=== PATIENT | male | born 1940 | race Caucasian/White ===

== ENCOUNTER 2017-08-22 22:52 | Inpatient (IN) ==
--- NOTE | 2017-08-23 02:35 | Internal Med History&Physical ---
<Keri Henriquez - Last Filed: 08/23/17 05:28> Date of Encounter: 08/23/17 Time of Encounter: 02:25 Assessment and Plan (1) Bilateral lower leg cellulitis Current visit: No Status: Acute Cellulitis from mid calf down. PAD. Cyanosis, dry, erythema, multiple non healing ulcers bilateral, 2+ pitting edema bilaterally. Decreased pulses in lower extremities. lactic acid 2.5 but does not appear septic. afebrile, BP stable. WBC WNL Most likely from the patient not treating or caring for his leg wounds, PAD, and diabetes. He has never sought treatment. Vancomycin IV cirpofloxacin blood and wound cultures collected at [facility] wound care PT/OT ordered social work consulted (2) PAD (peripheral artery disease) Current visit: Yes Status: Acute Patient's legs appear to be PAD. Cyanosis, dry, erythema, multiple non healing ulcers bilateral, 2+ pitting edema bilaterally. Decreased pulses in lower extremities. No crepitus. Nurse reported she could not find pulse with doppler. Heparin drip started JET consult vascular in morning (3) Atrial fibrillation with RVR Current visit: No Status: Acute Patient was found to be in new onset A.fib with RVR at [facility]. EKG showed atrial fib with RVR, rate 119, no acute ST elevation. Etiology unclear. May be due to the patient's multiple co-morbidities. The patient was started on a cardizem drip. tele monitoring echo ordered (4) GERRY (acute kidney injury) Current visit: Yes Status: Acute Patient has GERRY at admission. Creatinine 1.71 May be pre-renal due to dehydration. Patient reports that he does not eat or drink very much. avoid nephrotoxic agents strict I/O monitor renal function holding home lisinopril (5) CHF (congestive heart failure) Current visit: No Status: Acute Patient reports history of 2 valve replacement in 2010 he believes. He denies diagnosis of CHF. He admits orthopnea and increase in lower extremity edema. CXR showed cardiomegaly with hydrostatic edema, small pleural effusion, acute CHF BNP 2563 Echo ordered holding lasix due to GERRY Qualifiers: Congestive heart failure type: unspecified congestive heart failure type Congestive heart failure chronicity: unspecified congestive heart failure chronicity Qualified Code(s): I50.9 - Heart failure, unspecified (6) Hypertension Current visit: Yes Status: Acute history of hypertension taking lisinopril hold lisinopril due to GERRY BP stable Qualifiers: Hypertension type: essential hypertension Qualified Code(s): I10 - Essential (primary) hypertension (7) Diabetes Current visit: Yes Status: Acute History of diabetes taking metformin and glipizide glucose 203 accu checks lispro AC Qualifiers: Diabetes mellitus type: type 2 Qualified Code(s): E11.9 - Type 2 diabetes mellitus without complications (8) DVT prophylaxis Current visit: Yes Status: Acute on heparin drip Internal Medicine - H&P: HPI Chief complaint: bilateral lower extremity cellulitis Admitted From: Hospital to Hospital Transfer Plans for Post Hospital Care: Home History of present illness: Mr. Smith is a 77 year old male with a past medical history of hypertension and diabetes who was a transfer from [facility] ED. He presented to [facility] ED by EMS because of non healing ulcers on his legs bilaterally. Per ED report his PA called EMS after visiting patient's home and examining his legs. The following are lab and imaging results at [facility]: EKG showed atrial fib with RVR, rate 119, no acute ST elevation. The patient was started on a cardizem drip. Patient given multiple IVF boluses and dose of zosyn. X-ray feet and ankle showed no acute osseous abnormality or osteomyelitis. CXR showed cardiomegaly with hydrostatic edema, small pleural effusion, acute CHF. Afebrile , HR 112, BP 124/90, WBC 10.4, lactic acid 2.5. BNP 2563, creatinine 1.71. Blood and wound cultures were also collected. Upon my examination of the patient he stated that he went to the ED because the pain in his bilateral legs increased 2 weeks ago. He does not take care of the leg ulcers. He describes the pain as an ache and does not take medication for the pain. He has been using a walking recently because of the pain. He reported that he has never sought treatment for the care of his feet. His family doctor is Dr. Tico Guido in [facility] but he does not know about the patient's legs. He denied fever, chills, chest pain, shortness of breathe, palpitations, abdominal pain, nausea, vomiting, dysuria. 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 He reported that he fell a month ago and his shoulder has hurt since. He denies history of smoking, drug, alcohol. He reports that he has lost 30lbs in 2 months because he skips meals and will go days without eating because food does not taste very good to him. At [facility] ED shoulder X-ray was normal. The patient vitals are stable, afebrile, no acute distress. He has equal sensation in his legs bilaterally, he is able to move both lower extremities, and has weak but present pulses b/l. Past Med Surg Social Fam HX - Past Medical History Medical history: diabetes, hypertension Psychiatric history: no psych history - Past Surgical History Surgical History: heart valve replacement (2 valve replacement ) - Social History Smoking Status: Never smoker Smokeless Tobacco Status: No Alcohol use: none Drug use: none Occupational status: employed Current living situation: Home Activity Level: Uses cane/walker - Family History Mother Hx Family Cancer: Yes Father Hx Family Cancer: Yes Internal Medicine - H&P: Meds Aspirin Enteric Coated [Aspirin EC] 81 mg PO DAILY 08/22/17 [History] GlipiZIDE [Glipizide Xl] 5 mg PO DAILY 08/22/17 [History] Lisinopril [Zestril] 30 mg PO DAILY 08/22/17 [History] Metoprolol Succinate 50 mg PO DAILY 08/22/17 [History] metFORMIN [Glucophage] 1,000 mg PO BIDWM 08/22/17 [History] 3 Allergy/AdvReac Type Severity Reaction Status Date / Time No Known Allergies Allergy Verified 08/22/17 18:35 All Systems PM: A 10-system review of systems was performed and is negative for pertinent findings except as documented above in the HPI. - Constitutional Constitutional: falls, no chills, no fever(s) - EENT Eyes: no change in vision - Cardiovascular Cardiovascular ROS IM: edema, orthopnea, no chest pain, no diaphoresis, no paroxysmal nocturnal dyspnea, no syncope - Respiratory Respiratory: no cough, no hemoptysis, no wheezing - Gastrointestinal Gastrointestinal: no abdominal pain, no hematochezia, no melena, no nausea, no vomiting - Genitourinary Genitourinary ROS male: hematuria, nocturia, urinary frequency, no dysuria - Musculoskeletal Musculoskeletal ROS IM: no joint swelling - Integumentary Integumentary IM: erythema, non-healing lesions (bilateral lower extremities), skin ulcer - Neurological Neurological ROS: no dizziness, no headache(s) - Psychiatric Psychiatric: no confusion - Hematologic/Lymphatic Hematologic/Lymphatic: no easy bleeding - Constitutional General appearance: Present: A&O X 3, pleasant, no acute distress - Head Head exam: Present: atraumatic, normocephalic - Eye Eye exam: Present: conjunctival injection. Absent: scleral icterus - ENT ENT exam: Present: mucous membranes dry - Neck Neck exam general surgery: Present: supple. Absent: lymphadenopathy, tenderness - Respiratory Respiratory exam: Present: rales (bases bilateral). Absent: respiratory distress, rhonchi, stridor, wheezes - Cardiovascular Cardiovascular exam: Present: irregular rhythm. Absent: clicks - GI/Abdominal GI/Abdominal exam: Present: normal bowel sounds, soft. Absent: firm, guarding, tenderness - Extremities Exam Extremities exam: Present: calf tenderness - Expanded Lower Extremities Exam Lower Leg exam: Present: erythema, swelling, tenderness. Absent: crepitus Neuro vascular tendon exam: Present: extremity cold to touch. Absent: pulse deficit (weak pulse), sensory deficit - Back Exam Back exam: Present: normal inspection. Absent: rash noted - Skin Skin exam: Present: cyanosis, dry, erythema. Absent: intact (non healing ulcers ) <Sebastián Mccoy - Last Filed: 08/23/17 05:53> Date of Encounter: 08/23/17 Internal Medicine - H&P: HPI History of present illness: Mr. Smith is a 77 year old male All Systems PM: A 10-system review of systems was performed and is negative for pertinent findings except as documented above in the HPI. - Constitutional Vitals: Temp Pulse Resp BP Pulse Ox 98.3 F 119 14 122/96 96 08/23/17 02:41 08/23/17 04:16 08/23/17 04:16 08/23/17 04:16 08/23/17 04:16 - Attending Attestation I examined this patient and my medical decision-making was reviewed with the Resident Physician. I agree with the documented findings, disposition and treatment plan as described except to the extent set forth below. Mr Smith is a 77 yo gentlemen who lives at home with brother. Hx of DMII. Coming in with worsening LE erythema and ulceration concerning for progressive diabetic foot ulcer with overlying infection. Symptoms did not get better with time but had gotten worse instead. ED physician at [facility] reported that on arrival patient leg wounds were covered in feces and dog hair. He was found to be in AFib rvr. General - AAO x 3 Psych - Appropriate affect/speech. No agitation Eyes - AXEL. Eye lids intact. No scleral icterus Neuro - No gross peripheral or central neuro deficits with intact CN 2-12 exam Heart - Irregularly irregular. S1 and S2 present. No added HS/murmurs appreciated. No elevated JVD appreciated. Lung - Adequate air entry b/l, No wheezes, bibasal crackles appreciated GI - Soft, non-tender. No hepatosplenomegaly/ascites. BS+ Skin - Ulceration with gangrenous change of b/l LE. Early surrounding cellulitis XR/XR foot 3V RT IMPRESSION: No acute osseous abnormality of the right ankle. No acute osseous abnormality of the right foot. No plain film evidence of osteomyelitis. Moderate soft tissue swelling along the dorsum of the foot. XR/XR ankle complete min 3V RT IMPRESSION: No acute osseous abnormality of the right ankle. No acute osseous abnormality of the right foot. No plain film evidence of osteomyelitis. Moderate soft tissue swelling along the dorsum of the foot. XR/XR chest 1V IMPRESSION: Cardiomegaly with hydrostatic edema and small layering pleural effusion in keeping with acute congestive heart failure. IMPRESSION: 1. No acute osseous abnormality the right shoulder. 2. Mild degenerative changes of the right acromioclavicular joint. Cellulitis Dry gangrene Diabetic ulcers Lactate elevation - IV vanc, cipro for broad coverage - wound care PAD - JET - consult vascular to assist in eval and optimization if necessary AFib rvr - EKG rate 147 at [facility] ED Acute congestion CHF - could be related to AFib rvr - rate control with dilt gtt - TTE with HR better - hold diuretics due to above issues - to visit anticoagulation but compliance may be an issue Renal insufficiency - unknown baseline Troponemia - could be 2/2 demand from RVR Social work consult
[2017-08-23] MEDS ORDERED: Naloxone 0.4 MG/ML INJ IVP PRN (03:30)
[2017-08-23] MEDS ORDERED: Vancomycin 1,250 MG in D5% in Water 250 ML IVPB SCH (04:00)
[2017-08-23] MEDS ORDERED: Metoprolol XL (24 HR) Succ 50 MG TAB.ER.24H PO SCH ×2 (04:17→09:00)
[2017-08-23] MEDS: Vancomycin 1,250 MG in D5% in Water 250 ML IVPB SCH (05:06)
[2017-08-23] MEDS: dilTIAZem HCl 100 MG in D5% in Water 50 ML IVC SCH ×2 (05:08→22:12)
[2017-08-23] MEDS: Heparin 25,000 UNIT/500 ML D5W 25,000 UNIT/500 ML BAG IVC SCH ×2 (05:14→23:32)
[2017-08-23] MEDS ORDERED: *HR* Heparin 5,000 UNIT/ML VIAL SQ SCH (06:00)
[2017-08-23] MEDS ORDERED: Insulin LISPRO 300 UNITS/3 ML VIAL SQ SCH ×2 (07:30→08:00)
[2017-08-23 08:21] LABS: Hematocrit 41.1 % (37.5-50.1)
[2017-08-23 08:23] LABS: Hemoglobin 12.5 g/dL (12.9-16.9); Immature Platelets 10.5 % (1.1-6.1); Mean Corpuscular HGB Conc 30.4 g/dL (31.6-35.5); Mean Corpuscular Hemoglobin 22.9 pg (28.0-33.3); Mean Corpuscular Volume 75.1 fL (83.0-100.0); Platelet Count 111 K/mcL (140-400); Red Blood Count 5.47 M/mcL (4.19-5.50); Red Cell Distribution Width 23.5 % (11.5-14.5)
[2017-08-23 08:27] LABS: INR 1.7; Prothrombin Time 18.9 Seconds (9.4-12.1)
[2017-08-23 08:34] LABS: Calcium 8.3 mg/dL (8.6-10.8); Magnesium 1.8 mg/dL (1.6-2.6); Phosphorous 2.8 mg/dL (2.3-4.7)
[2017-08-23] MEDS: Aspirin Enteric Coated 81 MG Tablet PO SCH (08:38)
[2017-08-23] MEDS ORDERED: *HR* Dextrose 50 % in Water (Syg) 50 ML SYRINGE IVP PRN (09:28)
[2017-08-23] MEDS ORDERED: D5% in Water 1,000 ML IVC PRN (09:28)
[2017-08-23] MEDS ORDERED: Dextrose Gel 15 GM/37.5 ML TUBE PO PRN ×2 (09:28)
[2017-08-23] MEDS ORDERED: *HR* Heparin 5,000 UNIT/ML VIAL IVP PRN (09:30)
[2017-08-23 09:32] LABS: Lymphocytes # 0.3 K/mcL (0.6-4.6); Neutrophils # 12.2 K/mcL (1.6-8.9)
[2017-08-23 09:33] LABS: Platelet Estimate Slight Decrease (Normal)
[2017-08-23] MEDS ORDERED: Piperacillin/Tazobactam 3.375 GM/200 ML BAG IVPB SCH (10:00)
[2017-08-23 10:41] LABS: Acanthocytes 1+ (Not Present); Burr Cells 2+ (Not Present)
[2017-08-23 10:42] LABS: Schistocytes 1+ (Not Present)
[2017-08-23 10:43] LABS: Target Cells 1+ (Not Present)
[2017-08-23 10:44] LABS: Anisocytosis 2+ (Not Present); Ovalocytes 1+ (Not Present)
--- NOTE | 2017-08-23 10:47 | Cardiology Consult Note ---
Date of Encounter: 08/23/17 Time of Encounter: 10:47 Assessment and Plan (1) Atrial fibrillation with RVR Current Visit: No Status: Acute Presumably new onset, in setting of CHF and bilateral lower extremity cellulitis. A-Fib RVR on presentation. HR currently 90s-low 100s at bedside on low dose cardizem gtt and Toprol XL 50mg daily. Will increase PO BB. Uptitrate Cardizem gtt as necessary for HR control, < 100bpm. K 4.0, Mag 1.8. Echo pending to evaluate structure and function. Hx of CABG and valve replacement. Currently on heparin gtt for anticoagulation. [id number] (Age, HTN, CAD, DM, CHF). Will need to discuss terminologist anticoagulation prior to discharge due to high CVA risk. Continue heparin gtt for now. (2) CAD (coronary artery disease) Current Visit: Yes Status: Acute Per pt, hx of 2 vessel CABG and valve replacement (uncertain which valve) in 2010 at a [facility], possibly [facility]. ASA, Statin, BB. Pt denies chest pain. Echo pending. Qualifiers: Coronary Disease-Associated Artery/Lesion type: cantwell artery [place] vs. transplanted heart: cantwell heart Associated angina: without angina Qualified Code(s): I25.10 - Atherosclerotic heart disease of cantwell coronary artery without angina pectoris (3) Presence of other heart-valve replacement Current Visit: Yes Status: Chronic 2V CABG and valve replacement in 2010. Pt unsure which valve was replaced. Echo pending to evaluate. (4) CHF (congestive heart failure) Current Visit: Yes Status: Acute Acute CHF exacerbation--systolic vs. diastolic. Echo pending to determine. Pt denies any hx of CHF. Pt denies increased dyspnea. Chief complaint is leg swelling, redness, pain and ulcers. BNP 2563, CXR findings consistent with CHF. Recommend strict I/Os, Na and fluid restriction, daily weights. Await echo results for further recommendations. Qualifiers: Congestive heart failure type: unspecified congestive heart failure type Congestive heart failure chronicity: unspecified congestive heart failure chronicity Qualified Code(s): I50.9 - Heart failure, unspecified (5) PAD (peripheral artery disease) Current Visit: Yes Status: Acute Lower extremities with cellulitis, vascular wounds, necrosis. Per wound care, pulses not palpable. Agree with vascular surgery consultation. Discussion w patient/family: The assessment and plan as outlined above was discussed with the patient and/or family members who expressed understanding and agreement. All questions were answered. Thank you for involving us in the care of your patient. Please call with any questions. I will discuss all the above with Dr. Donaldson and make changes as necessary. History of Present Illness Consult date: 08/23/17 Requesting physician: Sebastián Mccoy Consult reason: A-Fib RVR Chief complaint: leg pain, swelling, redness History of present illness: Mr. Smith is a 77 year old male with a past medical history of HTN, DM, PAD, CAD s/p CABG x 2 and valve replacement who was a transfer from [facility] ED. He presented to [facility] ED by EMS because of non healing ulcers on his legs bilaterally. Per ED report his PA called EMS after visiting patient's home and examining his legs. EKG showed atrial fib with RVR, rate 119, was started on a cardizem drip. CXR showed cardiomegaly with hydrostatic edema, small pleural effusion, acute CHF. BNP 2563. Pt reports pain in his bilateral legs increased 2 weeks ago. He does not take care of the leg ulcers. He reports that he has never sought treatment for the care of his feet. He denies dyspnea, chest pain or palpitations. He denies history of smoking, drug, or alcohol use. He reports that he has lost 30lbs in 2 months due to loss of appetite. Pt is being treated for bilateral lower extremity cellulitis. Cardiology consulted for A-Fib RVR and CHF. No prior testing at [facility]. Pt unsure of which valve he had replaced, thinks it was done at [facility] 6 years ago. Past Med Surg Social Fam HX - Past Medical History Medical history: coronary artery disease, diabetes, hypertension, valvular heart disease Psychiatric history: no psych history - Past Surgical History Surgical History: coronary bypass (CABG), heart valve replacement (2 valve replacement ) - Social History Smoking Status: Never smoker Smokeless Tobacco Status: No Alcohol use: none Drug use: none - Family History Mother Hx Family Cancer: Yes Father Hx Family Cancer: Yes Medications and Allergies Aspirin Enteric Coated [Aspirin EC] 81 mg PO DAILY 08/22/17 [History] GlipiZIDE [Glipizide Xl] 5 mg PO DAILY 08/22/17 [History] Lisinopril [Zestril] 30 mg PO DAILY 08/22/17 [History] Metoprolol Succinate 50 mg PO DAILY 08/22/17 [History] metFORMIN [Glucophage] 1,000 mg PO BIDWM 08/22/17 [History] 3 Allergy/AdvReac Type Severity Reaction Status Date / Time No Known Allergies Allergy Verified 08/22/17 18:35 All Systems Review: A 10-system review of systems was performed and is negative for pertinent findings except as documented above in the HPI. - Constitutional Constitutional: anorexia, weight loss - Cardiovascular Cardiovascular: as per HPI, leg edema Physical Examination Vital Signs, Last 4 Hours Temp Pulse Resp BP Pulse Ox 08/23/17 07:23 97.4 F L 96 18 119/84 100 Vital Signs Temp Pulse Resp BP Pulse Ox 08/23/17 07:23 97.4 F L 96 18 119/84 100 08/23/17 04:16 119 14 122/96 96 08/23/17 02:41 98.3 F 113 16 108/93 96 Intake and Output 08/22/17 08/23/17 08/23/17 23:59 07:59 15:59 Intake Total 0 / 0 Output Total 25 / 25 Balance -25 / -25 Intake: Oral 0 / 0 Output: Urine 25 / 25 Other: Weight 89.3 kg Blood Glucose* 148 Patient Weight 08/23/17 23:59 Weight 89.3 kg General: Conversant, No Apparent Distress HEENT: Atraumatic, Normocephaly, Mucus Membranes Moist Neck: Normal carotid pulses Cardiac: Other (irregularly irregular) Lungs: Other (diminished) Neuro: Alert and responsive, No focal deficits noted Abdomen: Soft, Non-Tender Skin: No rashes noted on visualized skin Musculoskeletal: No Chest Wall Tenderness Extremities: Other (bilateral lower extremities with erythema, edema, and wounds ) Results 08/23/17 08:12 08/23/17 08:12 Lab Results 08/23/17 08/23/17 08/23/17 02:33 05:02 08:12 WBC 12.4 H RBC 5.47 Hgb 12.5 L Hct 41.1 MCV 75.1 L MCH 22.9 L MCHC 30.4 L RDW 23.5 H Plt Count 111 L MPV TNP Immature Plt Fraction 10.5 H PT INR Sodium Potassium Chloride Carbon Dioxide BUN Creatinine Est GFR ( Amer) Est GFR (Non-Af Amer) BUN/Creatinine Ratio Glucose POC Glucose 158 H 148 H Calculated Osmolality Calcium Phosphorus Magnesium 08/23/17 08/23/17 08:12 08:12 WBC RBC Hgb Hct MCV MCH MCHC RDW Plt Count MPV Immature Plt Fraction PT 18.9 H INR 1.7 Sodium 138 Potassium 4.0 Chloride 106 Carbon Dioxide 22 BUN 41 H Creatinine 1.54 H Est GFR ( Amer) 53 L Est GFR (Non-Af Amer) 44 L BUN/Creatinine Ratio 27 H Glucose 163 H POC Glucose Calculated Osmolality 300 Calcium 8.3 L Phosphorus 2.8 Magnesium 1.8 Short CBC 08/23/17 Range/Units 08:12 WBC 12.4 H (4.3-11.1) K/mcL Hgb 12.5 L (12.9-16.9) g/dL Hct 41.1 (37.5-50.1) % Plt Count 111 L (140-400) K/mcL Neutrophils # 12.2 H (1.6-8.9) K/mcL BMP 08/23/17 Range/Units 08:12 Sodium 138 (136-145) mEq/L Potassium 4.0 (3.5-4.5) mEq/L Chloride 106 (98-109) mEq/L Carbon Dioxide 22 (19-29) mEq/L BUN 41 H (8-26) mg/dL Creatinine 1.54 H (0.72-1.25) mg/dL Glucose 163 H (70-99) mg/dL Calcium 8.3 L (8.6-10.8) mg/dL Active Medications Acetaminophen (Tylenol) 650 mg PO Q6HR PRN PRN Reason: Mild Pain (1-3) Stop: 02/22/18 03:31 Aspirin (Aspirin Ec) 81 mg PO DAILY KAYLEE Stop: 02/22/18 09:01 Last Admin: 08/23/17 08:38 Dose: 81 mg Dextrose/Water (Dextrose 50% (Syg)) 25 ml IVP AD PRN PRN Reason: Hypoglycemia Stop: 02/22/18 09:29 Glucagon (Glucagen) 1 mg IM ONCE PRN PRN Reason: Hypoglycemia Stop: 02/22/18 09:29 Glucose (Gluctose) 15 gm PO ONCE PRN PRN Reason: Hypoglycemia Stop: 02/22/18 09:29 Glucose (Gluctose) 30 gm PO ONCE PRN PRN Reason: Hypoglycemia Stop: 02/22/18 09:29 Heparin Sodium (Porcine) (Heparin) 6,300 unit 70 unit/kg (6300 unit) IVP Q6HR PRN PRN Reason: SEE COMMENTS Stop: 02/22/18 09:31 Heparin Sodium (Porcine) (Heparin) 3,100 unit 35 unit/kg (3100 unit) IVP Q6H PRN PRN Reason: SEE COMMENTS Stop: 02/22/18 09:31 Heparin Sodium/Dextrose (Heparin 25,000 Unit/500 Ml D5w) 25,000 unit in 500 mls @ 25.004 mls/hr IVC .Q20H KAYLEE; 14 UNIT/KG/HR PRN Reason: Protocol Stop: 02/22/18 04:16 Last Admin: 08/23/17 05:14 Dose: 14 unit/kg/hr, 25.004 mls/hr Vancomycin HCl 1,250 mg/ (Dextrose) 250 mls @ 166.667 mls/hr IVPB Q24H KAYLEE Stop: 02/22/18 05:01 Last Admin: 08/23/17 05:06 Dose: 166.667 mls/hr Diltiazem HCl 100 mg/ Dextrose 50 mls @ 2.5 mls/hr IVC .Q20H KAYLEE; 5 MG/HR PRN Reason: Protocol Stop: 02/22/18 04:46 Last Admin: 08/23/17 05:08 Dose: 5 mg/hr, 2.5 mls/hr Dextrose (Dextrose 5%) 1,000 mls @ 100 mls/hr IVC .Q10H PRN PRN Reason: HYPOGLYCEMIA Stop: 02/22/18 09:29 Piperacillin Sod/Tazobactam Sod (Zosyn Premix 3.375 Gm/200 Ml) 3.375 gm in 200 mls @ 50 mls/hr IVPB Q8H [facility] Stop: 02/22/18 10:01 Insulin Human Lispro (Humalog) 0 units SQ Q6HR KAYLEE PRN Reason: Protocol Stop: 02/22/18 12:01 Metoprolol Succinate (Toprol Xl) 50 mg PO DAILY KAYLEE Stop: 02/22/18 04:18 Last Admin: 08/23/17 05:07 Dose: 50 mg Naloxone HCl (Narcan) 0.4 mg IVP Q2MIN PRN PRN Reason: Opioid Reversal Stop: 02/22/18 03:31 - Imaging and Cardiology Chest Xray: report reviewed Echo: pending - EKG Interpretation EKG results cardiology: personally reviewed (A-Fib RVR), other (12 hr tele AVG HR 112, A-Fib) Consult Discharge Plan - Plan Referrals: NONE,PCP [Primary Care Provider] -
[2017-08-23] MEDS ORDERED: Metoprolol XL (24 HR) Succ 25 MG TAB.ER.24H PO ONE (11:05)
[2017-08-23] MEDS: Insulin LISPRO 300 UNITS/3 ML VIAL SQ SCH ×3 (11:45→23:35)
--- NOTE | 2017-08-23 12:16 | Event Note ---
Date of Encounter: 08/23/17 Time of Encounter: 11:59 Patient is a 77y/o male with PMH of DM admitted for management of PVD, Afib with RVR, GERRY on CKD, LE cellulitis. Patient seen and examined at bedside. Noted to have ulceration with gangrenous changes of bilateral LE JET reported total occlusion with no pulses found bilateral and no waveforms bilateral Vascular surgery consultation requested continue heparin gtt IV abx Afib-rate controlled, currently on cardizem gtt, continue to titrate off the drip and increase PO BB cardiology on board and consultation appreciated' will obtain nephrology consultation given GERRY on CKD hx of DM, continue home insulin in addition to sliding scale insulin algorithm. Monitor FS and BG vitals and labs reviewed
--- NOTE | 2017-08-23 12:23 | Vascular/Endovasc Consult Note ---
Date of Encounter: 08/23/17 Time of Encounter: 10:00 Assessment and Plan (1) Diabetic ankle ulcer Current Visit: Yes Status: Acute Severe and full-thickness ulcerations with necrotic fat and full-thickness eschars. These wounds appear to be chronic. (2) Atrial fibrillation with RVR Current Visit: Yes Status: Acute Patient diagnosed with atrial fibrillation with RVR on admission. He is undergoing medical treatment. The patient needs cardiology consultation and echocardiogram for further evaluation. Patient is not a candidate for anesthesia for surgical intervention or for [facility] anesthesia for catheter based angiography due to cardiopulmonary and renal concerns at this time. (3) CHF (congestive heart failure) Current Visit: Yes Status: Acute The patient has multiple ongoing medical problems. He is not a candidate for vascular surgery intervention due to multiple issues particularly his cardiopulmonary and renal status. Qualifiers: Congestive heart failure type: unspecified congestive heart failure type Congestive heart failure chronicity: unspecified congestive heart failure chronicity Qualified Code(s): I50.9 - Heart failure, unspecified (4) PAD (peripheral artery disease) Current Visit: Yes Status: Acute Patient has severe lower extremity vascular disease. I do not palpate popliteal or ankle pulses. There is no ankle-brachial index or waveform at the ankle. The patient's initial prognosis is extremely grim. Unless his medical problems can be stabilized and improved to the point that he could undergo either anesthesia or at least M before meals anesthesia and improve renal function he may require bilateral [id number] amputations. My recommendation would be as correction and improvement of his medical concerns as best possible. Then to have a CT angiogram with an aortogram with bilateral lower extremity runoff. Pending the results of that exam I would then make further recommendations. (5) GERRY (acute kidney injury) Current Visit: Yes Status: Acute Patient has acute kidney injury from a host of sources. IV contrast or intra- arterial contrast cannot be administered in his present state. Would recommend renal consultation to stabilize and improve this and also to follow the patient after contrast exposure if he can be improved to allow that study to be performed. - History of Present Illness Consult date: 08/23/17 Consult reason: Bilateral lower extremity ischemia with ulcerations Chief complaint: Leg ulcers History of present illness: Mr. Smith is a 77 year old male Admitted on transfer from [facility] last night. The patient is a very imprecise historian. As best I can determine he states that the symptoms and ulcerations began 2-3 weeks ago and they are worsening over time. The patient admits to ulcerations of both lower extremities involving the calf and ankle and feet area. He states he had needed to use a walker to walk over the past few days. He also complains of pain in the calves with walking recently. The patient lives with his brother and has had by his own admission very little medical attention or medical follow-up. He denies any previous knowledge of lower extremity vascular disease. He denies any previous lower extremity vascular interventions. He denies being told that he had lower extremity vascular disease by other physicians in the past. Noninvasive testing was performed earlier today with ABIs that demonstrated no Doppler signals are measurable pressure at the ankles bilaterally. The patient was found to be in atrial fibrillation with rapid ventricular response. He was started on intravenous heparin and intravenous diltiazem drip to control his rate. In addition because of his lower extremity wounds he was placed on intravenous antibiotics. Of note the patient has multiple risk factors including diabetes, hypertension, and hypercholesterolemia. The patient denies tobacco abuse. The patient has significant cardiac history though he is unclear of the details. 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 Some more the last 4-6 years she had open heart bypass grafting with a two-vessel bypass and a porcine valve replacement. The patient does not know whether this is an aortic or mitral valve replacement. He believes that this was performed at [facility]. He does not remember the name of the cardiac surgeon. Past Med Surg Social Fam HX - Past Medical History Medical history: coronary artery disease, diabetes, hypertension, valvular heart disease Psychiatric history: no psych history - Past Surgical History Surgical History: coronary bypass (CABG), heart valve replacement (2 valve replacement ) - Social History Smoking Status: Never smoker Smokeless Tobacco Status: No Alcohol use: none Drug use: none - Family History Mother Hx Family Cancer: Yes Father Hx Family Cancer: Yes Medications and Allergies Aspirin Enteric Coated [Aspirin EC] 81 mg PO DAILY 08/22/17 [History] GlipiZIDE [Glipizide Xl] 5 mg PO DAILY 08/22/17 [History] Lisinopril [Zestril] 30 mg PO DAILY 08/22/17 [History] Metoprolol Succinate 50 mg PO DAILY 08/22/17 [History] metFORMIN [Glucophage] 1,000 mg PO BIDWM 08/22/17 [History] 3 Allergy/AdvReac Type Severity Reaction Status Date / Time No Known Allergies Allergy Verified 08/22/17 18:35 All Systems Review: A 10-system review of systems was performed and is negative for pertinent findings except as documented above in the HPI. Exam Vital Signs, Last 4 Hours Temp Pulse Resp BP Pulse Ox 08/23/17 11:36 98.5 F 88 16 97/72 100 General: Present: Conversant, Other (Patient is an ill-appearing elderly white male. He has muscle wasting of his extremities and face and neck. He appears somewhat listless and lethargic.) HEENT: Present: Trachea midline Neck: Absent: JVD, Lymphadenopathy, Left Carotid bruit, Right Carotid bruit, Midline deformity, Tracheal deviation Cardiac: Present: No Murmur, Irregular Rhythm Lungs: Present: Decreased breath sounds Neuro: Present: Alert and responsive, Cranial nerves grossly intact, Other ( Patient is examined in bed. He has an overall lethargy and has minimal spontaneous speech or movement.) Abdomen: Present: Soft, Non-tender. Absent: Masses Vascular: Present: Pulse, absent, Edema (Patient has bilateral calf and pedal edema. Greater on the left side than on the right.), Color/Temperature (Patient' s feet are cool to cold. The left foot is colder than the right.) Skin: Present: Wound/ulcer(s) (The patient has multiple ulcers of the lower extremities in the pretibial and ankle and foot area. In particular the left toes have necrotic full-thickness lesions on the plantar surface. There was a very dry full-thickness open ulceration on the pretibial region greater on the left side than on the right. These wounds appear to be chronic. There is mild tenderness to manipulation. The calves have a doughy sensation on manipulation greater on the left side than on the right. There does not appear to be a compartment syndrome. There does not appear to be necrotizing fasciitis or deep- seated infection present.) Consult Discharge Plan - Plan Referrals: NONE,PCP [Primary Care Provider] -
--- NOTE | 2017-08-23 14:06 | Nephrology Consult Note ---
Date of Encounter: 08/23/17 Time of Encounter: 14:00 Assessment and Plan (1) GERRY (acute kidney injury) Current Visit: Yes Status: Acute Elevated SCr at 1.54 an improvement from 1.71, GFR 39 on admission. Baseline unclear Will obtain US of kidney Will obtain previous labs from pcp if there is any available Needs UA, urine for protein Will need careful use of vanco by levels only given nephrotoxicity (2) PAD (peripheral artery disease) Current Visit: Yes Status: Acute If CTA planned, will need mucomyst for prophylasix and gentle volume replacement History of Present Illness - Reason for Consult Consult date: 08/23/17 Acute Kidney Injury Requesting physician: Natacha Multani - History of Present Illness 77 y o male with PMH ofDM, HTN and CAD s/p 2 vessel CABG and valvular surgery admitted for cellulitis with severe PAD with vascular consulted. He was also noted to have new onset Afib with cardilogy consulted. renal consulted for elevated SCr at 1.71, GFR 39 on presenttation improving to 1.54, GFR 44. Pt denies any prior history of renal disease although he has had no labs this year. He also denies any family history. He denies any urinary iss ues except weak stream. No prostate issues as well. Past Med Surg Social Fam HX - Past Medical History Medical history: coronary artery disease, diabetes, hypertension, valvular heart disease Psychiatric history: no psych history - Past Surgical History Surgical History: coronary bypass (CABG), heart valve replacement (2 valve replacement ) - Social History Smoking Status: Never smoker Smokeless Tobacco Status: No Alcohol use: none Drug use: none - Family History Mother Hx Family Cancer: Yes Father Hx Family Cancer: Yes Medications and Allergies Aspirin Enteric Coated [Aspirin EC] 81 mg PO DAILY 08/22/17 [History] GlipiZIDE [Glipizide Xl] 5 mg PO DAILY 08/22/17 [History] Lisinopril [Zestril] 30 mg PO DAILY 08/22/17 [History] Metoprolol Succinate 50 mg PO DAILY 08/22/17 [History] metFORMIN [Glucophage] 1,000 mg PO BIDWM 08/22/17 [History] 3 Allergy/AdvReac Type Severity Reaction Status Date / Time No Known Allergies Allergy Verified 08/22/17 18:35 Review of Systems All Systems: reviewed and no additional remarkable complaints except as stated ( 10 systems reviewed) Exam - Vital Signs Vital signs: Initial Vital Signs Temp Pulse Resp BP Pulse Ox 98.3 F 113 16 108/93 96 08/23/17 02:41 08/23/17 02:41 08/23/17 02:41 08/23/17 02:41 08/23/17 02:41 Vital Signs - Last 8 Hours Temp Pulse Resp BP Pulse Ox 08/23/17 11:36 98.5 F 88 16 97/72 100 08/23/17 07:23 97.4 F L 96 18 119/84 100 Intake and Output 08/22/17 08/23/17 08/23/17 23:59 07:59 15:59 Intake Total 0 / 0 200 / 200 Output Total 25 / 25 5 / 5 Balance -25 / -25 195 / 195 Intake: IV Fluids 200 / 200 Heparin 25,000 UNIT/500 ML D5W 200 / 200 25,000 unit In 500 ml @ 14 UNIT /KG/HR 25.004 mls/hr IVC .Q20H KAYLEE Rx#:[id number] Oral 0 / 0 Output: Urine 25 / 25 5 / 5 Other: Weight 89.3 kg Blood Glucose* 148 105 Patient Weight 08/23/17 23:59 Weight 89.3 kg - General Appearance General appearance: chronically ill, frail EENT: ATNC, mucous membranes moist Neck: no JVD, supple Cardiology: edema (LE bilat), normal S1, normal S2 Gastrointestinal: no tenderness, no guarding Integumentary: ulcer (multiple on LE bilateral with some necrosis) Neurologic: no focal deficit Musculoskeletal: cyanosis Psychiatric: mood/affect appropriate, cooperative Results - Lab Results 08/23/17 08:12 08/23/17 08:12 Most recent lab results Calcium 8.3 mg/dL (8.6-10.8) L 08/23/17 08:12 Phosphorus 2.8 mg/dL (2.3-4.7) 08/23/17 08:12 Magnesium 1.8 mg/dL (1.6-2.6) 08/23/17 08:12 Consult Discharge Plan - Plan Referrals: NONE,PCP [Primary Care Provider] -
[2017-08-23] MEDS: Piperacillin/Tazobactam 3.375 GM/200 ML BAG IVPB SCH (22:09)
[2017-08-24 04:10] LABS: Basophils % 0.1 %
[2017-08-24 04:12] LABS: Eosinophils % 0.2 %; Hematocrit 38.5 % (37.5-50.1); Hemoglobin 12.1 g/dL (12.9-16.9); Immature Granulocytes % 0.2 % (0-4); Immature Platelets 11.9 % (1.1-6.1); Lymphocytes # 0.4 K/mcL (0.6-4.6); Lymphocytes % 3.4 %; Mean Corpuscular HGB Conc 31.4 g/dL (31.6-35.5); Mean Corpuscular Hemoglobin 23.5 pg (28.0-33.3); Mean Corpuscular Volume 74.8 fL (83.0-100.0); Monocytes # 0.5 K/mcL (0.0-1.3); Monocytes % 3.9 %; Neutrophils # 11.3 K/mcL (1.6-8.9); Red Blood Count 5.15 M/mcL (4.19-5.50); Red Cell Distribution Width 23.4 % (11.5-14.5); Segmented Neutrophils % 92.2 %
[2017-08-24 04:18] LABS: Platelet Count 98 K/mcL (140-400)
[2017-08-24 04:33] LABS: Calcium 8.1 mg/dL (8.6-10.8); Magnesium 1.8 mg/dL (1.6-2.6)
[2017-08-24] MEDS: Vancomycin 1,250 MG in D5% in Water 250 ML IVPB SCH (05:04)
[2017-08-24] MEDS: Piperacillin/Tazobactam 3.375 GM/200 ML BAG IVPB SCH ×3 (05:05→21:57)
[2017-08-24 05:21] LABS: Acanthocytes 3+ (Not Present)
[2017-08-24 05:22] LABS: Microcytosis Present (Not Present); Ovalocytes 1+ (Not Present); Target Cells 1+ (Not Present)
[2017-08-24 05:23] LABS: Anisocytosis 2+ (Not Present); Large Platelets Present (Not Present); Platelet Estimate Slight Decrease (Normal); Poikilocytosis 2+ (Not Present); Tear Drop Cells 1+ (Not Present)
[2017-08-24] MEDS: Insulin LISPRO 300 UNITS/3 ML VIAL SQ SCH ×5 (05:28→21:56)
[2017-08-24] MEDS: Aspirin Enteric Coated 81 MG Tablet PO SCH (07:44)
[2017-08-24] MEDS ORDERED: Metoprolol XL (24 HR) Succ 50 MG TAB.ER.24H PO SCH (09:00)
[2017-08-24] MEDS: Acetaminophen 325 MG TABLET PO PRN (10:03)
--- NOTE | 2017-08-24 10:27 | Event Note ---
Date of Encounter: 08/24/17 Time of Encounter: 09:25 Nephrology Note Pt was off the floor, so I was unable to see him. I reviewed the hand-off information from my colleague Dr. De La Rosa. SCr rising today. Continue to follow a renal protective strategy as able. Further recommendations to follow. Thank you.
--- NOTE | 2017-08-24 11:41 | Cardiology Progress Note ---
Date of Encounter: 08/24/17 Time of Encounter: 11:37 Assessment and Plan (1) Cardiomyopathy Current Visit: Yes Status: Acute Echo--LVEF 15-20%. Severely reduced LV systolic function - appears global with atypical septal motion. RV size appears normal. Function is moderate to severely reduced. Will attempt to get prior records from [facility]. ICMP vs NICMP. Known hx of CAD and CABG in 2010, no recent ischemic evaluation. Pt denies hx of CMP, but poor historian. Recommend [facility] to further evaluate. R/B/A discussed and pt is agreeable. Current clinical course is complicated by GERRY, CMP, PAD with possible need for bilateral AKAs. Consulted Palliative care to discuss goals. If pt wants to be aggressive, he will undergo multiple invasive evaluations and potential high risk vascular surgery. If he does not want to be aggressive, prognosis is very poor. Will determine how aggressive pt wants to be prior to proceeding with [facility]. If he wants to continue current course, then plan would be for [facility] Sunday, pending renal function and nephrology input as well. Continue BB. No ACEi due to GERRY. Continue to follow. Qualifiers: Cardiomyopathy type: unspecified Qualified Code(s): I42.9 - Cardiomyopathy , unspecified (2) Atrial fibrillation with RVR Current Visit: Yes Status: Inactive Presumably new onset, in setting of CHF and bilateral lower extremity cellulitis. A-Fib RVR on presentation. HR currently 90s-low 100s at bedside on low dose cardizem gtt at 5mg/hr and Toprol XL 75mg daily. Will continue to increase PO BB and attempt to wean off Cardizem given CMP. Echo LVEF 15-20%. Severely reduced LV systolic function - appears global with atypical septal motion. Currently on heparin gtt for anticoagulation. [id number] (Age, HTN, CAD, DM, CHF). Will need to discuss long term care pharmacist anticoagulation prior to discharge due to high CVA risk. Continue heparin gtt for now. (3) CAD (coronary artery disease) Current Visit: Yes Status: Acute Per pt, hx of 2 vessel CABG and valve replacement in 2010 at a [facility] , possibly [facility]. ASA, Statin, BB. Pt denies chest pain. Echo LVEF 15-20%. Qualifiers: Coronary Disease-Associated Artery/Lesion type: [place] artery [place] vs. transplanted heart: [place] heart Associated angina: without angina Qualified Code(s): I25.10 - Atherosclerotic heart disease of [place] coronary artery without angina pectoris (4) Presence of other heart-valve replacement Current Visit: Yes Status: Chronic 2V CABG and valve replacement in 2010. Pt unsure which valve was replaced. Echo shows bioprosthetic aortic valve. Normal Doppler function. PV 2.3m/s, MG 14 mmHg. (5) CHF (congestive heart failure) Current Visit: Yes Status: Inactive Acute CHF exacerbation--systolic as confirmed on echo. Pt denies any hx of CHF. Echo resulted--LVEF 15-20%. Severely reduced LV systolic function - appears global with atypical septal motion. RV size appears normal. Function is moderate to severely reduced. BNP 2563, CXR findings consistent with CHF. Recommend strict I/Os, Na and fluid restriction, daily weights. No diuretics given GERRY. Qualifiers: Congestive heart failure type: unspecified congestive heart failure type Congestive heart failure chronicity: unspecified congestive heart failure chronicity Qualified Code(s): I50.9 - Heart failure, unspecified (6) PAD (peripheral artery disease) Current Visit: Yes Status: Acute Management per vascular surgery. Discussion w patient/family: The assessment and plan as outlined above was discussed with the patient and/or family members who expressed understanding and agreement. All questions were answered. Thank you for involving us in the care of your patient. Please call with any questions. I will discuss all the above with Dr. Donaldson and make changes as necessary. Subjective Principal diagnosis: A-Fib RVR, CHF, CMP Interval history: Echo resulted--LVEF 15-20%. Severely reduced LV systolic function - appears global with atypical septal motion. RV size appears normal. Function is moderate to severely reduced. Possible presence of a bioprosthetic aortic valve. History was not provided - recommend correlate clinically. Normal Doppler function. PV 2.3m/s, MG 14 mmHg. Mild mitral regurgitation. Mild-moderate tricuspid regurgitation. Mild pulmonic regurgitation. Pt denies chest pain or dyspnea this AM. Seen by vascular and nephrology. Further vascular work-up warranted once current status stabilizes. Remains in A-Fib, HR 90s-low 100s at bedside on Cardizem gtt at 5mg/ hr. 12 hr tele AVG HR 104, A-Fib. Objective Vital Signs Temp Pulse Resp BP Pulse Ox 08/24/17 11:36 98.1 F 99 16 112/83 96 08/24/17 07:29 97.8 F 95 16 122/87 93 08/24/17 05:46 97.8 F 116 18 123/80 116 08/24/17 00:00 97.6 F 96 18 111/85 99 08/23/17 19:00 97.8 F 96 18 94/70 91 08/23/17 15:58 98 F 102 14 116/93 96 Intake and Output 08/23/17 08/24/17 08/24/17 23:59 07:59 15:59 Intake Total 470 / 470 260 / 260 Output Total 50 / 50 200 / 200 Balance 470 / 470 210 / 210 -200 / -200 Intake: IV Fluids 350 / 350 200 / 200 Heparin 25,000 UNIT/500 ML D5W 300 / 300 25,000 unit In 500 ml @ 14 UNIT /KG/HR 25.004 mls/hr IVC .Q20H KAYLEE Rx#:[id number] Cardizem 100 MG In Dextrose 5% 50 / 50 (ADD-[place]) 50 ML @ 5 MG/HR 2 .5 mls/hr IVC .Q20H KAYLEE Rx#: [id number] Zosyn Premix 3.375 GM/200 ML 3. 200 / 200 375 gm In 200 ml @ 50 mls/hr IVPB Q8H KAYLEE Rx#:[id number] Oral 120 / 120 60 / 60 Output: Urine 50 / 50 200 / 200 Other: Stool Size Moderate Moderate Stool Consistency soft soft Stool Characteristics Normal for Patient Stool Color Brown Brown # Voids 1 # Urine Diapers 1 # Bowel Movements 1 Weight 89.3 kg Blood Glucose* 202 175 146 Patient Weight 08/24/17 23:59 Weight 89.3 kg General: Conversant, No Apparent Distress HEENT: Atraumatic, Normocephaly, Mucus Membranes Moist Neck: Normal carotid pulses Cardiac: Other (irregularly irregular rhythm) Lungs: Other (diminished) Neuro: Alert and responsive, No focal deficits noted Abdomen: Soft, Non-Tender Skin: No rashes noted on visualized skin Musculoskeletal: No Chest Wall Tenderness Extremities: Other (erythema, wounds and necrosis noted, edema) Results 08/24/17 02:58 08/24/17 02:58 Lab Results 08/23/17 08/23/17 08/24/17 11:30 17:27 02:58 WBC 12.2 H Hgb 12.1 L Hct 38.5 Plt Count 98 L APTT 79.1 H D 87.4 H Sodium Potassium Chloride Carbon Dioxide BUN Creatinine Glucose Calcium Magnesium 08/24/17 02:58 WBC Hgb Hct Plt Count APTT Sodium 137 Potassium 4.0 Chloride 106 Carbon Dioxide 20 BUN 43 H Creatinine 1.65 H Glucose 167 H Calcium 8.1 L Magnesium 1.8 Short CBC 08/24/17 Range/Units 02:58 WBC 12.2 H (4.3-11.1) K/mcL Hgb 12.1 L (12.9-16.9) g/dL Hct 38.5 (37.5-50.1) % Plt Count 98 L (140-400) K/mcL Neutrophils # 11.3 H (1.6-8.9) K/mcL BMP 08/24/17 Range/Units 02:58 Sodium 137 (136-145) mEq/L Potassium 4.0 (3.5-4.5) mEq/L Chloride 106 (98-109) mEq/L Carbon Dioxide 20 (19-29) mEq/L BUN 43 H (8-26) mg/dL Creatinine 1.65 H (0.72-1.25) mg/dL Glucose 167 H (70-99) mg/dL Calcium 8.1 L (8.6-10.8) mg/dL Impressions Echocardiogram 08/23/17 03:33 Impressions: LVEF 15-20%. Severely reduced LV systolic function - appears global with atypical septal motion. Mildly dilated left ventricle. Indeterminate diastolic function. RV size appears normal. Function is moderate to severely reduced. Possible presence of a bioprosthetic aortic valve. History was not provided - recommend correlate clinically. Normal Doppler function. PV 2.3m/s, MG 14 mmHg. Mild mitral regurgitation. Mild-moderate tricuspid regurgitation. Mild pulmonic regurgitation. Borderline pulmonary hypertension. Pleural effusion. Left Ventricular Wall Motion: Rest Echo Findings The apex, apical inferior, mid inferior, basal inferior, apical anterior, mid anterior, basal anterior, apical septal, mid inferior septal, basal inferior septal, apical lateral, mid anterior lateral, basal anterior lateral, mid anterior septal, mid inferior lateral, basal anterior septal and basal inferior lateral watkins were hypokinetic. Findings: Study Quality * Technically adequate exam. ECG Findings * Atrial fibrillation with BBB. Left Ventricle * LVEF 15-20%. * Mildly dilated left ventricle. * Indeterminate diastolic function. Right Ventricle * RV size appears normal. Function is moderate to severely reduced. Left Atrium * Severely dilated left atrium. Right Atrium * Severely dilated right atrium. Aortic Valve * No aortic regurgitation. * Aortic valve not well visualized - possibly a bioprosthetic valve. * No aortic stenosis. Mitral Valve * Normal mitral valve structure. * No mitral stenosis. * Mild mitral regurgitation. Tricuspid Valve * Normal tricuspid valve structure. * Mild-moderate tricuspid regurgitation. * Estimated RA pressure is 8 mmHg. * Estimated RVSP is 34 mmHg. * Borderline pulmonary hypertension. Pulmonic Valve * Pulmonic valve is not well visualized. * No pulmonic stenosis. * Mild pulmonic regurgitation. Pulmonary Artery * Pulmonary artery not well visualized. Aorta * Not fully visualized. Pericardium * There is no pericardial effusion present. Interatrial Septum * No evidence of PFO by color Doppler. IVC * The IVC is dilated. * < 50% respiratory change. Retroperitoneum Ultrasound 08/24/17 09:00 IMPRESSION: Mild right hydronephrosis. Possible twinkle artifact at the left renal inferior pole which would suggest a tiny renal stone. Left kidney is smaller than the right but otherwise normal in appearance. Large bilateral effusions and large volume abdominal ascites. D/ / Jordan Peres / Jordan Peres Interpreting Provider: Jordan Peres Active Medications Acetaminophen (Tylenol) 650 mg PO Q6HR PRN PRN Reason: Mild Pain (1-3) Stop: 02/22/18 03:31 Last Admin: 08/24/17 10:03 Dose: 650 mg Acetylcysteine (Acetylcysteine 20%) 600 mg PO BID KAYLEE Stop: 08/26/17 09:01 Last Admin: 08/24/17 07:45 Dose: 600 mg Aspirin (Aspirin Ec) 81 mg PO DAILY KAYLEE Stop: 02/22/18 09:01 Last Admin: 08/24/17 07:44 Dose: 81 mg Dextrose/Water (Dextrose 50% (Syg)) 25 ml IVP AD PRN PRN Reason: Hypoglycemia Stop: 02/22/18 09:29 Glucagon (Glucagen) 1 mg IM ONCE PRN PRN Reason: Hypoglycemia Stop: 02/22/18 09:29 Glucose (Gluctose) 15 gm PO ONCE PRN PRN Reason: Hypoglycemia Stop: 02/22/18 09:29 Glucose (Gluctose) 30 gm PO ONCE PRN PRN Reason: Hypoglycemia Stop: 02/22/18 09:29 Heparin Sodium (Porcine) (Heparin) 6,300 unit 70 unit/kg (6300 unit) IVP Q6HR PRN PRN Reason: SEE COMMENTS Stop: 02/22/18 09:31 Heparin Sodium (Porcine) (Heparin) 3,100 unit 35 unit/kg (3100 unit) IVP Q6H PRN PRN Reason: SEE COMMENTS Stop: 02/22/18 09:31 Heparin Sodium/Dextrose (Heparin 25,000 Unit/500 Ml D5w) 25,000 unit in 500 mls @ 25.004 mls/hr IVC .Q20H KAYLEE; 14 UNIT/KG/HR PRN Reason: Protocol Stop: 02/22/18 04:16 Last Admin: 08/23/17 23:32 Dose: 14 unit/kg/hr, 25.004 mls/hr Vancomycin HCl 1,250 mg/ (Dextrose) 250 mls @ 166.667 mls/hr IVPB Q24H KAYLEE Stop: 02/22/18 05:01 Last Admin: 08/24/17 05:04 Dose: 166.667 mls/hr Diltiazem HCl 100 mg/ Dextrose 50 mls @ 2.5 mls/hr IVC .Q20H KAYLEE; 5 MG/HR PRN Reason: Protocol Stop: 02/22/18 04:46 Last Admin: 08/23/17 22:12 Dose: 5 mg/hr, 2.5 mls/hr Dextrose (Dextrose 5%) 1,000 mls @ 100 mls/hr IVC .Q10H PRN PRN Reason: HYPOGLYCEMIA Stop: 02/22/18 09:29 Piperacillin Sod/Tazobactam Sod (Zosyn Premix 3.375 Gm/200 Ml) 3.375 gm in 200 mls @ 50 mls/hr IVPB Q8H KAYLEE Stop: 02/22/18 10:01 Last Admin: 08/24/17 05:05 Dose: 50 mls/hr Insulin Human Lispro (Humalog) 0 units SQ Q6HR KAYLEE PRN Reason: Protocol Stop: 02/22/18 12:01 Last Admin: 08/24/17 05:28 Dose: Not Given Metoprolol Succinate (Toprol Xl) 75 mg PO DAILY [facility] Stop: 02/23/18 09:01 Last Admin: 08/24/17 07:44 Dose: 75 mg Naloxone HCl (Narcan) 0.4 mg IVP Q2MIN PRN PRN Reason: Opioid Reversal Stop: 02/22/18 03:31 - Imaging and Cardiology Echo: report reviewed - EKG Interpretation EKG results cardiology: other (12 hr tele AVG HR 104, A-Fib) Consult Discharge Plan - Plan Referrals: NONE,PCP [Primary Care Provider] -
[2017-08-24] MEDS ORDERED: Metoprolol XL (24 HR) Succ 25 MG TAB.ER.24H PO ONE (11:55)
--- NOTE | 2017-08-24 12:44 | Palliative - Consult Note ---
Date of Encounter: 08/24/17 Time of Encounter: 16:25 - Assessment and Plan (1) Counseling regarding advanced care planning and goals of care Current Visit: Yes Status: Acute Assessment and plan: Discussion regarding goals of care with pt, son, pt brother Ruperto, and pt cousin. Patient has not been able to comprehend much of discussion with physicians thus far, and can only tell me "my circulation and heart need fixed". Dr. Busch in earlier and spoke at length with pt. I was present for that conversation and communicated that information to his son and brother Ruperto. At this point, pt is leaning toward proceeding with heart catheterization and understands the risk imposed with dye and his renal function. Understands that if kidneys fail, dialysis would be required. He and family verbalized understanding. Also discussed after cath - eventually would require the angiogram and further recommendations from vascular regarding procedure or amputation would follow. He is unsure at this point if he would want amputation , but wants to proceed with workup testing beginning with heart cath. His family is also encouraging this. I did reinterate to them multiple times, that these decisions are the patients, but appreciated their support as he has limited insight into his medical conditions. The brother stated that he did have advanced directives in place - and will be bringing that paperwork in. Will f/u in am. (2) GERRY (acute kidney injury) Current Visit: Yes Status: Acute Assessment and plan: Nephrology following. Renal protective strategies and monitoring labwork. (3) Cardiomyopathy Current Visit: Yes Status: Acute Assessment and plan: Cardiology following closely. Qualifiers: Cardiomyopathy type: unspecified Qualified Code(s): I42.9 - Cardiomyopathy , unspecified (4) PAD (peripheral artery disease) Current Visit: Yes Status: Acute Assessment and plan: Vascular surgery following. Palliative-CN HPI - Data of Consult Requesting Physician: Natacha Multani MD Primary Care Provider: PCP NONE - Consult Narrative History of present illness: Mr. Smith is a 77 year old male who was transferred from [place] where he presented with non healing leg ulcers. He c/o increasing achy pain in both legs that increased a couple of weeks ago. He was not taking any medication for the pain at home. Patient is poor historian, states he does not have family physician. He has history of CABG x2 and states he has 2 artificial valves. These were completed at [place] and cardiology obtaining records. Also history of hypertension and diabetes. Upon my visit, his uncle is at bedside. He denies any pain or discomfort at this time. Denies shortness of breath/anxiety/nausea, but does state he has had no appetite and doesn't eat well at home r/t this. 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 Palliative was consulted to assist with goals of care discussion. He appears to have limited understanding of his medical conditions. Awaiting family to arrive to discuss clinical situation and support pt with decision making. CC: Natacha Multani MD Past Med Surg Social Fam HX - Past Medical History Medical history: coronary artery disease, diabetes, hypertension, valvular heart disease Psychiatric history: no psych history - Past Surgical History Surgical History: coronary bypass (CABG), heart valve replacement (2 valve replacement ) - Social History Smoking Status: Never smoker Smokeless Tobacco Status: No Alcohol use: none Drug use: none - Family History Mother Hx Family Cancer: Yes Father Hx Family Cancer: Yes Medications and Allergies Aspirin Enteric Coated [Aspirin EC] 81 mg PO DAILY 08/22/17 [History] GlipiZIDE [Glipizide Xl] 5 mg PO DAILY 08/22/17 [History] Lisinopril [Zestril] 30 mg PO DAILY 08/22/17 [History] Metoprolol Succinate 50 mg PO DAILY 08/22/17 [History] metFORMIN [Glucophage] 1,000 mg PO BIDWM 08/22/17 [History] 3 Allergy/AdvReac Type Severity Reaction Status Date / Time No Known Allergies Allergy Verified 08/22/17 18:35 All systems: reviewed and no additional remarkable complaints except as stated ( generalized weakness, leg ulcers, decreased appetite) Palliative Care-Exam - Constitutional Vitals: Temp Pulse Resp BP Pulse Ox 98.1 F 99 16 112/83 96 08/24/17 11:36 08/24/17 11:36 08/24/17 11:36 08/24/17 11:36 08/24/17 11:36 General appearance: Present: no acute distress - Head Head Exam: Present: normal inspection, normocephalic - Eye Eye exam: Present: normal appearance, PERRL - Respiratory Respiratory exam: Present: decreased breath sounds, CTAB - Expanded Respiratory Exam Location: decreased breath sounds: Left, Right, Lower - Cardiovascular Cardiovascular exam: Present: irregular rhythm - GI/Abdominal Exam GI/Abdominal exam: Present: distended, normal bowel sounds, soft - Extremities Exam Additional comments: Lower extremities with erythema bilaterally - multiple necrotic ulcers - mostly dry. Left flanagan ulcer with some weeping. No palpable pedal or posterior tibial pulses - Neurological Exam Neurological exam: Present: alert, oriented X3, strengths equal and symetr throughout - Skin Skin exam: Present: dry, warm Internal Medicine - CN: Reslt - Labs CBC & Chem 7: 08/24/17 02:58 08/24/17 02:58 Labs: Short CBC 08/24/17 Range/Units 02:58 WBC 12.2 H (4.3-11.1) K/mcL Hgb 12.1 L (12.9-16.9) g/dL Hct 38.5 (37.5-50.1) % Plt Count 98 L (140-400) K/mcL Neutrophils # 11.3 H (1.6-8.9) K/mcL BMP 08/24/17 02:58 Sodium 137 Potassium 4.0 Chloride 106 Carbon Dioxide 20 BUN 43 H Creatinine 1.65 H Glucose 167 H Calcium 8.1 L - ABG Interpretation ABG results: PT/INR, D-dimer PT 18.9 Seconds (9.4-12.1) H 08/23/17 08:12 - Impressions Impressions Echocardiogram 08/23/17 03:33 Impressions: LVEF 15-20%. Severely reduced LV systolic function - appears global with atypical septal motion. Mildly dilated left ventricle. Indeterminate diastolic function. RV size appears normal. Function is moderate to severely reduced. Possible presence of a bioprosthetic aortic valve. History was not provided - recommend correlate clinically. Normal Doppler function. PV 2.3m/s, MG 14 mmHg. Mild mitral regurgitation. Mild-moderate tricuspid regurgitation. Mild pulmonic regurgitation. Borderline pulmonary hypertension. Pleural effusion. Left Ventricular Wall Motion: Rest Echo Findings The apex, apical inferior, mid inferior, basal inferior, apical anterior, mid anterior, basal anterior, apical septal, mid inferior septal, basal inferior septal, apical lateral, mid anterior lateral, basal anterior lateral, mid anterior septal, mid inferior lateral, basal anterior septal and basal inferior lateral watkins were hypokinetic. Findings: Study Quality * Technically adequate exam. ECG Findings * Atrial fibrillation with BBB. Left Ventricle * LVEF 15-20%. * Mildly dilated left ventricle. * Indeterminate diastolic function. Right Ventricle * RV size appears normal. Function is moderate to severely reduced. Left Atrium * Severely dilated left atrium. Right Atrium * Severely dilated right atrium. Aortic Valve * No aortic regurgitation. * Aortic valve not well visualized - possibly a bioprosthetic valve. * No aortic stenosis. Mitral Valve * Normal mitral valve structure. * No mitral stenosis. * Mild mitral regurgitation. Tricuspid Valve * Normal tricuspid valve structure. * Mild-moderate tricuspid regurgitation. * Estimated RA pressure is 8 mmHg. * Estimated RVSP is 34 mmHg. * Borderline pulmonary hypertension. Pulmonic Valve * Pulmonic valve is not well visualized. * No pulmonic stenosis. * Mild pulmonic regurgitation. Pulmonary Artery * Pulmonary artery not well visualized. Aorta * Not fully visualized. Pericardium * There is no pericardial effusion present. Interatrial Septum * No evidence of PFO by color Doppler. IVC * The IVC is dilated. * < 50% respiratory change. Retroperitoneum Ultrasound 08/24/17 09:00 IMPRESSION: Mild right hydronephrosis. Possible twinkle artifact at the left renal inferior pole which would suggest a tiny renal stone. Left kidney is smaller than the right but otherwise normal in appearance. Large bilateral effusions and large volume abdominal ascites. D/ / Jordan Peres / Jordan Peres Interpreting Provider: Jordan Peres Consult Discharge Plan - Plan Referrals: NONE,PCP [Primary Care Provider] - Palliative Quality Palliative Quality: Screen for Code Status: Yes, Screen for Goals of Care: Yes, Screen for Pain: Yes, If Pain Regimen Started, Initiate Bowel Regimen: NA, Screen for Nausea/Vomitting: Yes Code Status: 08/23/17 03:30 Resuscitation Status: Active [RES] Routine Comment: Resuscitation Status: Full Code
--- NOTE | 2017-08-24 14:16 | Vascular/[facility] Progress Note ---
Date of Encounter: 08/24/17 Time of Encounter: 14:13 - Assessment and plan (1) PAD (peripheral artery disease) Current Visit: Yes Status: Acute Patient has severe lower extremity vascular disease. I do not palpate popliteal or ankle pulses. There is no ankle-brachial index or waveform at the ankle. The patient's initial prognosis is extremely grim. Unless his medical problems can be stabilized and improved to the point that he could undergo either anesthesia or at least M before meals anesthesia and improve renal function he may require bilateral [id number] amputations. My recommendation would be as correction and improvement of his medical concerns as best possible. Then to have a CT angiogram with an aortogram with bilateral lower extremity runoff. Pending the results of that exam I would then make further recommendations. In light of the very poor echocardiographic prognosis the question was raised about cardiac catheterization. Dr. Donaldson and I discussed this issue. However due to his overall poor status and deconditioning palliative care consultation was requested. At this point there is no urgent need for vascular intervention though it is clear that he has inadequate perfusion to heal the lower extremity wounds. Should the patient wish to proceed with further care he would require cardiac catheterization and then a time to recover from the contrast load and then having another contrast load for the aortogram with runoff. The patient is aware that without correction of his occlusive disease that he would require lower extremity amputation versus palliative care only. I will be out of the hospital as we can and Dr. Gomez is airway controller for vascular surgery if there are any questions but I do not anticipate the patient will require angiography for lower extremity (2) GERRY (acute kidney injury) Current Visit: Yes Status: Acute Patient has acute kidney injury from a host of sources. IV contrast or intra- arterial contrast cannot be administered in his present state. Would recommend renal consultation to stabilize and improve this and also to follow the patient after contrast exposure if he can be improved to allow that study to be performed. - Subjective Interval history: The patient admits to no new symptoms overnight. He denies any shortness of breath at rest. He has had some discomfort of the lower extremities which was treated with analgesia. Diagnostic workup has included an abdominal ultrasound as well as an echocardiogram. The abdominal ultrasound revealed significant ascites. The echocardiogram shows markedly diminished ejection fraction of 15-20% with global hypokinesia of the ventricular watkins. Vital Signs, Last 4 Hours Temp Pulse Resp BP Pulse Ox 08/24/17 11:36 98.1 F 99 16 112/83 96 - Physical Examination General: Present: Conversant Neuro: Present: Alert and responsive Vascular: Present: Pulse, absent, Other (Ulcerations of the bilateral lower extremities including the calves and feet and toes is stable as compared to yesterday. His feet are actually warmer to touch today than they were yesterday. There is no exacerbation of the cellulitis. His calves remain soft. He has no palpable pulses at the foot or ankle level. Overall skin turgor is very poor.) Abdomen: Present: Other (Distended abdomen consistent with the ultrasound findings of ascites) Results 08/24/17 02:58 08/24/17 02:58 Lab Results, Last 24 hours 08/23/17 08/24/17 08/24/17 17:27 02:58 02:58 WBC 12.2 H Hgb 12.1 L Hct 38.5 Plt Count 98 L APTT 87.4 H Sodium 137 Potassium 4.0 Chloride 106 Carbon Dioxide 20 BUN 43 H Creatinine 1.65 H Glucose 167 H Calcium 8.1 L Magnesium 1.8 - Imaging / Other Tests Echo: report reviewed Consult Discharge Plan - Plan Referrals: NONE,PCP [Primary Care Provider] -
--- NOTE | 2017-08-24 17:00 | Internal Med Progress Note ---
Date of Encounter: 08/24/17 Time of Encounter: 15:00 - Assessment and plan (1) PAD (peripheral artery disease) Current Visit: Yes Status: Acute (2) GERRY (acute kidney injury) Current Visit: Yes Status: Acute (3) Hypertension Current Visit: Yes Status: Acute Qualifiers: Hypertension type: essential hypertension Qualified Code(s): I10 - Essential (primary) hypertension (4) CAD (coronary artery disease) Current Visit: Yes Status: Acute Qualifiers: Coronary Disease-Associated Artery/Lesion type: [place] artery [place] vs. transplanted heart: [place] heart Associated angina: without angina Qualified Code(s): I25.10 - Atherosclerotic heart disease of [place] coronary artery without angina pectoris (5) DM2 (diabetes mellitus, type 2) Current Visit: Yes Status: Acute Assessment and plan: PT NOT A CANDIDATE FOR VASCULAR SURGERY INTERVENTION EXCEPT HHE IS ABLE TO HAVE A LHC PT IS ALSO HIGH RISK FOR LHC. CONTINUE IV VANC AND ZOSYN HE IS DISCUSSING WITH PALLIATIVE CARE REGARDING HIS OPTIONS. CARDIO FOLLOWING FOR ATRIAL FIB, RVR. IMPROVING WITH ADDING LONG ACTING B- SAVANNAH CONTINUE ACCUCHECK WITH INSULIN SCALE CONTINUE HEPARIN DRIP FOR NOW. ACCUCHECK WITH INSULIN COVERAGE. Qualifiers: Diabetes mellitus complication status: without complication Diabetes mellitus residential insulin use: without dedicated intermodal truck driver use Qualified Code(s): E11.9 - Type 2 diabetes mellitus without complications - Subjective Interval history: reports that he is thinking about whether or not to agree with amputation. - Constitutional Vitals: Temp Pulse Resp BP Pulse Ox 97.5 F L 68 16 101/75 91 08/24/17 16:18 08/24/17 16:18 08/24/17 16:18 08/24/17 16:18 08/24/17 16:18 General appearance: Present: A&O X 3, pleasant, no acute distress - Head Head exam: Present: atraumatic, normocephalic - Eye Eye exam: Present: PERRL, conjuntiva pink, sclera anicteric Pupils: Present: PERRL - Neck Neck exam general surgery: Present: supple, trachea midline. Absent: lymphadenopathy - Respiratory Respiratory exam: Present: CTAB. Absent: accessory muscle use, rales, rhonchi, wheezes - Cardiovascular Cardiovascular exam: Present: RRR, +S1, +S2. Absent: diastolic murmur, gallop, rubs, systolic murmur - GI/Abdominal GI/Abdominal exam: Present: normal bowel sounds, soft, no peritoneal signs. Absent: distended, tenderness - Extremities Exam Extremities exam: Present: pedal edema, warm, radial pulses palpable and symmetrical. Absent: calf tenderness, cyanotic Additional comments: bilateral malodorous wounds on the medial tib-fib - Neurological Exam Neurological exam: Present: CN II-XII intact, oriented X3, no focal deficits. Absent: pronater drift, facial droop, speech deficit - Skin Skin exam: Present: dry, intact Internal Medicine: Result - Labs CBC & Chem 7: 08/24/17 02:58 08/24/17 02:58 Labs: Short CBC 08/24/17 Range/Units 02:58 WBC 12.2 H (4.3-11.1) K/mcL Hgb 12.1 L (12.9-16.9) g/dL Hct 38.5 (37.5-50.1) % Plt Count 98 L (140-400) K/mcL Neutrophils # 11.3 H (1.6-8.9) K/mcL BMP 08/24/17 02:58 Sodium 137 Potassium 4.0 Chloride 106 Carbon Dioxide 20 BUN 43 H Creatinine 1.65 H Glucose 167 H Calcium 8.1 L - ABG Interpretation ABG results: PT/INR, D-dimer PT 18.9 Seconds (9.4-12.1) H 08/23/17 08:12 - Impressions Impressions Echocardiogram 08/23/17 03:33 Impressions: LVEF 15-20%. Severely reduced LV systolic function - appears global with atypical septal motion. Mildly dilated left ventricle. Indeterminate diastolic function. RV size appears normal. Function is moderate to severely reduced. Possible presence of a bioprosthetic aortic valve. History was not provided - recommend correlate clinically. Normal Doppler function. PV 2.3m/s, MG 14 mmHg. Mild mitral regurgitation. Mild-moderate tricuspid regurgitation. Mild pulmonic regurgitation. Borderline pulmonary hypertension. Pleural effusion. Left Ventricular Wall Motion: Rest Echo Findings The apex, apical inferior, mid inferior, basal inferior, apical anterior, mid anterior, basal anterior, apical septal, mid inferior septal, basal inferior septal, apical lateral, mid anterior lateral, basal anterior lateral, mid anterior septal, mid inferior lateral, basal anterior septal and basal inferior lateral watkins were hypokinetic. Findings: Study Quality * Technically adequate exam. ECG Findings * Atrial fibrillation with BBB. Left Ventricle * LVEF 15-20%. * Mildly dilated left ventricle. * Indeterminate diastolic function. Right Ventricle * RV size appears normal. Function is moderate to severely reduced. Left Atrium * Severely dilated left atrium. Right Atrium * Severely dilated right atrium. Aortic Valve * No aortic regurgitation. * Aortic valve not well visualized - possibly a bioprosthetic valve. * No aortic stenosis. Mitral Valve * Normal mitral valve structure. * No mitral stenosis. * Mild mitral regurgitation. Tricuspid Valve * Normal tricuspid valve structure. * Mild-moderate tricuspid regurgitation. * Estimated RA pressure is 8 mmHg. * Estimated RVSP is 34 mmHg. * Borderline pulmonary hypertension. Pulmonic Valve * Pulmonic valve is not well visualized. * No pulmonic stenosis. * Mild pulmonic regurgitation. Pulmonary Artery * Pulmonary artery not well visualized. Aorta * Not fully visualized. Pericardium * There is no pericardial effusion present. Interatrial Septum * No evidence of PFO by color Doppler. IVC * The IVC is dilated. * < 50% respiratory change. Retroperitoneum Ultrasound 08/24/17 09:00 IMPRESSION: Mild right hydronephrosis. Possible twinkle artifact at the left renal inferior pole which would suggest a tiny renal stone. Left kidney is smaller than the right but otherwise normal in appearance. Large bilateral effusions and large volume abdominal ascites. D/ / Jordan Peres / Jordan Peres Interpreting Provider: Jordan Peres Consult Discharge Plan - Plan Referrals: NONE,PCP [Primary Care Provider] -
[2017-08-24] MEDS: Heparin 25,000 UNIT/500 ML D5W 25,000 UNIT/500 ML BAG IVC SCH (17:58)
[2017-08-24] MEDS: dilTIAZem HCl 100 MG in D5% in Water 50 ML IVC SCH (17:58)
[2017-08-25] MEDS: *HR* Acetylcysteine 20% 600 MG/3 ML ORAL SYRINGE PO SCH ×2 (00:29→20:47)
[2017-08-25 01:38] LABS: Basophils % 0.1 %; Eosinophils % 0.1 %; Hematocrit 37.6 % (37.5-50.1); Hemoglobin 11.7 g/dL (12.9-16.9); Immature Granulocytes % 0.6 % (0-4); Immature Platelets 11.5 % (1.1-6.1); Lymphocytes # 0.4 K/mcL (0.6-4.6); Mean Corpuscular HGB Conc 31.1 g/dL (31.6-35.5); Mean Corpuscular Hemoglobin 23.5 pg (28.0-33.3); Mean Corpuscular Volume 75.7 fL (83.0-100.0); Monocytes # 0.5 K/mcL (0.0-1.3); Monocytes % 3.7 %; Neutrophils # 12.9 K/mcL (1.6-8.9); Red Blood Count 4.97 M/mcL (4.19-5.50); Red Cell Distribution Width 23.5 % (11.5-14.5); Segmented Neutrophils % 92.5 %
[2017-08-25 01:53] LABS: Calcium 8.3 mg/dL (8.6-10.8); Potassium 4.2 mEq/L (3.5-4.5)
[2017-08-25 01:59] LABS: Platelet Count 96 K/mcL (140-400)
[2017-08-25 02:01] LABS: Anisocytosis 1+ (Not Present); Platelet Estimate Slight Decrease (Normal); Poikilocytosis 1+ (Not Present)
[2017-08-25] MEDS: *HR* Heparin 5,000 UNIT/ML VIAL IVP PRN ×2 (02:15→17:59)
[2017-08-25] MEDS: Vancomycin 1,250 MG in D5% in Water 250 ML IVPB SCH (06:34)
[2017-08-25] MEDS: Piperacillin/Tazobactam 3.375 GM/200 ML BAG IVPB SCH ×3 (06:35→20:55)
[2017-08-25] MEDS: Aspirin Enteric Coated 81 MG Tablet PO SCH (09:00)
[2017-08-25] MEDS ORDERED: Metoprolol XL (24 HR) Succ 50 MG TAB.ER.24H PO SCH (09:00)
[2017-08-25] MEDS: Insulin LISPRO 300 UNITS/3 ML VIAL SQ SCH ×4 (09:02→22:39)
[2017-08-25] MEDS ORDERED: Aminoglycoside Consult 1 EACH MC ONE (09:04)
[2017-08-25 09:12] LABS: Activated Partial Thrombo Time 135.3 Seconds (26.0-36.0)
[2017-08-25 09:17] LABS: Heparin anti-factor XA UFH 0.35 IU/mL (0.30-0.70)
--- NOTE | 2017-08-25 10:09 | Cardiology Progress Note ---
Date of Encounter: 08/25/17 Time of Encounter: 08:30 Assessment and Plan (1) Cardiomyopathy Current Visit: Yes Status: Acute Echo--LVEF 15-20%. Severely reduced LV systolic function - appears global with atypical septal motion. RV size appears normal. Function is moderate to severely reduced. Will attempt to get prior records from [facility]. ICMP vs NICMP. Known hx of CAD and CABG in 2010, no recent ischemic evaluation. Pt denies hx of CMP, but poor historian. Recommend [facility] to further evaluate. R/B/A discussed and pt is agreeable. Seen by palliative yesterday. Patient and family agreed that they would like to proceed with [facility] with known multiple co-morbidities. Current clinical course is complicated by GERRY, CMP, PAD with possible need for bilateral AKAs. Plan would be for [facility] Sunday if renal function improves. Creatinine slightly increased today. Nephrology consulted. Continue BB. No ACEi due to GERRY. Continue to follow. Qualifiers: Cardiomyopathy type: unspecified Qualified Code(s): I42.9 - Cardiomyopathy , unspecified (2) CAD (coronary artery disease) Current Visit: Yes Status: Acute Per pt, hx of 2 vessel CABG and valve replacement in 2010 at a [facility]. ASA, Statin, BB. Pt denies chest pain. Echo LVEF 15-20%. Qualifiers: Coronary Disease-Associated Artery/Lesion type: [place] artery [place] vs. transplanted heart: [place] heart Associated angina: without angina Qualified Code(s): I25.10 - Atherosclerotic heart disease of [place] coronary artery without angina pectoris (3) Atrial fibrillation with RVR Current Visit: Yes Status: Acute Presumably new onset, in setting of CHF and bilateral lower extremity cellulitis. A-Fib RVR on presentation. HR currently 90s-low 100s, Avg HR 95 bpm over 24 hours, at bedside on low dose cardizem gtt at 2.5mg/hr and Toprol XL 100 mg daily. Wean off cardizem gtt given CMP. Echo LVEF 15-20%. Severely reduced LV systolic function - appears global with atypical septal motion. Currently on heparin gtt for anticoagulation. [id number] (Age, HTN, CAD, DM, CHF). 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 Continue heparin gtt for now pending procedures. (4) PAD (peripheral artery disease) Current Visit: Yes Status: Acute Management per vascular surgery. (5) Presence of other heart-valve replacement Current Visit: Yes Status: Chronic 2V CABG and valve replacement in 2010. Pt unsure which valve was replaced. Echo shows bioprosthetic aortic valve. Normal Doppler function. PV 2.3m/s, MG 14 mmHg. Discussion w patient/family: The assessment and plan as outlined above was discussed with the patient and/or family members who expressed understanding and agreement. All questions were answered. Thank you for involving us in the care of your patient. Please call with any questions. Subjective Principal diagnosis: A-Fib RVR, CHF, CMP Interval history: No new complaints. Denies chest pain. Objective Vital Signs, Last 4 Hours Temp Pulse Resp BP Pulse Ox 08/25/17 07:27 97.9 F 108 19 112/79 97 General: Conversant, No Apparent Distress HEENT: Atraumatic, Normocephaly, Mucus Membranes Moist Neck: No JVD, Normal carotid pulses Cardiac: Other (irregular) Lungs: Normal Breath Sounds, No Wheeze, Rales, Rhonchi Neuro: Alert and responsive, No focal deficits noted Abdomen: Soft, Non-Tender Musculoskeletal: No Chest Wall Tenderness Extremities: Other (BLE with redness, no pedal pulses palpable, Necrotic wounds on BLE) Results 08/25/17 01:05 08/25/17 01:05 Lab Results 08/24/17 08/25/17 08/25/17 17:24 01:05 01:05 WBC 13.9 H Hgb 11.7 L Hct 37.6 Plt Count 96 L APTT 105.1 H 56.8 H Sodium Potassium Chloride Carbon Dioxide BUN Creatinine Glucose Calcium 08/25/17 08/25/17 01:05 07:57 WBC Hgb Hct Plt Count APTT 135.3 H* D Sodium 136 Potassium 4.2 Chloride 106 Carbon Dioxide 18 L BUN 44 H Creatinine 1.77 H Glucose 137 H Calcium 8.3 L - Imaging and Cardiology Echo: report reviewed - EKG Interpretation EKG results cardiology: personally reviewed Consult Discharge Plan - Plan Referrals: NONE,PCP [Primary Care Provider] -
--- NOTE | 2017-08-25 13:12 | Nephrology Progress Note ---
Date of Encounter: 08/25/17 Time of Encounter: 11:30 - Assessment and Plan (1) GERRY (acute kidney injury) Current Visit: Yes Status: Acute Progressively worsening SCr consistent with GERRY of multifactorial etiology: the renal U/S revealed at least some hydronephrosis plus with his severe CMP and AF plus his LE wounds. I recommend placing a naranjo catheter and checking a CK level given the degree of LE wounds and PVD (to r/o Rhabdo). Typically I would recommend IVF for volume expansion, however with his very poor EF, giving him IV could actually induce more problems such as pulm edema or worsening of his b/l pleural effusions and ascites (see the retroperitoneal U /S results). So IVF are not an option. He is not uremic nor hyperkalemic, nor severe acidosis, so there are no indications for GLASS DEPOSITION TENDER. However, I did have a long conversation with him regarding the possibility of dialysis at some point. Meanwhile, I recommend following a renal protective/supportive strategy: dose Rx by GFR, avoid NSAIDs or other nephrotoxins. I reviewed Cardio and Vascular Surgery notes: likely contrast would worsen his renal function today. If his renal function stablizes then he may be able to tolerate a LHC or CTA. Overall, he has poor prognosis. Will follow with you. (2) Atrial fibrillation with RVR Current Visit: Yes Status: Acute as per primary/Cardio (3) Cardiomyopathy Current Visit: Yes Status: Acute as per primary/Cardio Qualifiers: Cardiomyopathy type: unspecified Qualified Code(s): I42.9 - Cardiomyopathy , unspecified (4) DM2 (diabetes mellitus, type 2) Current Visit: Yes Status: Chronic as per primary Qualifiers: Diabetes mellitus complication status: without complication Diabetes mellitus custodial insulin use: without custodial use Qualified Code(s): E11.9 - Type 2 diabetes mellitus without complications (5) Hypertension Current Visit: Yes Status: Chronic He has relatively poor hemodynamics with lower BPs. Avoid LIDIA or ARB. Qualifiers: Hypertension type: essential hypertension Qualified Code(s): I10 - Essential (primary) hypertension (6) PAD (peripheral artery disease) Current Visit: Yes Status: Acute (7) Pleural effusion Current Visit: Yes Status: Acute as per primary (8) Ascites Current Visit: Yes Status: Acute as per primary Qualifiers: Ascites type: other type Qualified Code(s): R18.8 - Other ascites Subjective Principal diagnosis: A-Fib RVR, CHF, CMP Interval history: Pt was s/e and he reported that he had no FHx of ESRD and that he has not been using OTC NSAIDs. He said that he was last hospitalized about 6 years ago; and he reported that he last saw a PCP about 1 year ago (he could not recall who or where his PCP practices). He said that his LEs have progressively worsened with the wounds/rashes. He was by himself (no family available) and overall was not able to elaborate well regarding his medical history. Objective - Vital Signs Vital signs: Vital Signs Temp Pulse Resp BP Pulse Ox 08/25/17 12:00 98.3 F 98 17 115/87 99 08/25/17 11:00 112 108/82 100 08/25/17 07:27 97.9 F 108 19 112/79 97 08/25/17 05:00 98.2 F 97 20 107/73 98 08/24/17 19:00 97.7 F 95 18 104/66 99 08/24/17 16:18 97.5 F L 68 16 101/75 91 Intake and Output 08/24/17 08/25/17 08/25/17 23:59 07:59 15:59 Intake Total 870 / 870 957 / 957 1927 Output Total 0 / 0 0 / 0 Balance 870 / 870 957 / 957 1927 Intake: IV Fluids 750 / 750 387 / 387 328 / 328 Heparin 25,000 UNIT/500 ML D5W 500 / 500 187 / 187 113 / 113 25,000 unit In 500 ml @ 14 UNIT /KG/HR 25.004 mls/hr IVC .Q20H [facility] Rx#:[id number] Cardizem 100 MG In Dextrose 5% 50 / 50 15 / 15 (ADD-[place]) 50 ML @ 5 MG/HR 2 .5 mls/hr IVC .Q20H [facility] Rx#: [id number] Zosyn Premix 3.375 GM/200 ML 3. 200 / 200 200 / 200 200 / 200 375 gm In 200 ml @ 50 mls/hr IVPB Q8H [facility] Rx#:[id number] Oral 120 / 120 570 / 570 1600 / 1600 Output: Urine 0 / 0 0 / 0 Other: Meal Breakfast Percent of Meal Consumed 5% Stool Size Large Large Stool Consistency loose formed Stool Color Brown Brown # Voids 1 # Urine Diapers 2 # Bowel Movement Diapers 1 2 Weight 92.8 kg Blood Glucose* 221 159 164 Patient Weight 08/25/17 23:59 Weight 92.8 kg - General Appearance General appearance: Present: cachectic, chronically ill, fatigue, frail EENT: Present: ATNC, PERRL, mucous membranes moist Neck: Present: supple Respiratory: Present: course breath sounds Cardiology: Present: edema (ankle trace to 1+ pitting edema bilaterally), irregular rhythm, normal S1, normal S2 Gastrointestinal: Present: normoactive bowel sounds, no tenderness, no guarding Integumentary: Present: erythema (of the b/l shins and feet), ecchymotic, chronic venous stasis Neurologic: Present: no focal deficit, no asterixis, confused (slow speach, poor ability to relate history) Additional Comments: both feet appear purple and with numerous wounds Psychiatric: Present: depressed (flat affect), cooperative - Lab 08/25/17 01:05 08/25/17 01:05 Most recent lab results Calcium 8.3 mg/dL (8.6-10.8) L 08/25/17 01:05 Phosphorus 3.0 mg/dL (2.3-4.7) 08/24/17 02:58 Magnesium 1.8 mg/dL (1.6-2.6) 08/24/17 02:58 Consult Discharge Plan - Plan Referrals: NONE,PCP [Primary Care Provider] -
--- NOTE | 2017-08-25 14:30 | Event Note ---
Date of Encounter: 08/25/17 Time of Encounter: 12:30 Patient awake and alert. No family present. Patient states he still desires to proceed with heart cath at this time. Noted worsening renal function and nephrology consult has been ordered. Patients brother is supposed to bring in his advanced directives, but has not done this yet. Will continue to follow. Poor prognosis.
--- NOTE | 2017-08-25 16:55 | Internal Med Progress Note ---
Date of Encounter: 08/25/17 Time of Encounter: 10:50 - Assessment and plan (1) Bilateral cellulitis of lower leg Current Visit: Yes Status: Acute Assessment and plan: Due to peripheral vascular disease. Continue current antibiotics. (2) Congestive heart failure Current Visit: Yes Status: Acute Assessment and plan: Patient does appear to be volume overloaded but given his poor renal function and in anticipation for cardiac catheterization, Lasix has been held. Respiratory status appears to be stable. Has high risk for complications. Qualifiers: Congestive heart failure type: systolic Congestive heart failure chronicity : acute on chronic Qualified Code(s): I50.23 - Acute on chronic systolic ( congestive) heart failure (3) GERRY (acute kidney injury) Current Visit: Yes Status: Acute Assessment and plan: Nephrology following. Serum creatinine continues to rise. Holding off on IV fluids due to cardiomyopathy and congestive heart failure. Agree with placement of Vera catheter per nephrology recommendations. Renal ultrasound does show right-sided hydronephrosis. Follow renal function closely. He is at risk for further damage to renal function with cardiac catheterization and contrast use. Patient does understand this risk. (4) Ascites Current Visit: Yes Status: Acute Assessment and plan: We will consider paracentesis when patient's cardiac conditions have been stabilized. Qualifiers: Ascites type: other type Qualified Code(s): R18.8 - Other ascites (5) CAD (coronary artery disease) Current Visit: Yes Status: Acute Assessment and plan: On aspirin, statin and beta tamir. Plan for cardiac catheterization on Sunday. Qualifiers: Coronary Disease-Associated Artery/Lesion type: [place] artery [place] vs. transplanted heart: [place] heart Associated angina: without angina Qualified Code(s): I25.10 - Atherosclerotic heart disease of [place] coronary artery without angina pectoris (6) Cardiomyopathy Current Visit: Yes Status: Acute Assessment and plan: With EF of 15%. Concerning for ischemic cardiomyopathy. Plan for cardiac catheterization on Sunday. Continue aspirin, statin and beta tamir. Patient remains tachycardic but given his low blood pressure does not have much room for increasing his beta tamir. Also cannot be placed on LIDIA inhibitor due to planned cardiac catheterization and worsening renal function. Qualifiers: Cardiomyopathy type: unspecified Qualified Code(s): I42.9 - Cardiomyopathy , unspecified (7) DM2 (diabetes mellitus, type 2) Current Visit: Yes Status: Chronic Assessment and plan: Fairly controlled. Continue current insulin regimen Qualifiers: Diabetes mellitus complication status: without complication Diabetes mellitus skilled nursing insulin use: without terminal operations manager use Qualified Code(s): E11.9 - Type 2 diabetes mellitus without complications (8) Hypertension Current Visit: Yes Status: Chronic Assessment and plan: Controlled at this time. Qualifiers: Hypertension type: essential hypertension Qualified Code(s): I10 - Essential (primary) hypertension (9) PAD (peripheral artery disease) Current Visit: Yes Status: Acute Assessment and plan: Ok gangrene and necrosis involving the plantar surface of the toes both lower extremities. Vascular surgery has been consulted. Patient does have poor overall prognosis given his multiple comorbidities. He is not a good candidate for intervention. Continue medical management for now. (10) Pleural effusion Current Visit: Yes Status: Acute Assessment and plan: Likely due to heart failure - Subjective Interval history: Patient continues to have bilateral leg pain. He has decided to go ahead with cardiac catheterization if possible. Has been scheduled for this procedure for Sunday. No fever or chills reported overnight. Denies any shortness of breath at this time. - Constitutional Vitals: Temp Pulse Resp BP Pulse Ox 97.8 F 110 18 119/92 99 08/25/17 16:00 08/25/17 16:00 08/25/17 16:00 08/25/17 16:00 08/25/17 12:00 General appearance: Present: cooperative, mild distress, A&O X 3, pleasant, answers questions appropriately - Neck Neck exam general surgery: Present: supple, trachea midline. Absent: lymphadenopathy - Respiratory Respiratory exam: Present: CTAB. Absent: accessory muscle use, rales, rhonchi, wheezes - Cardiovascular Cardiovascular exam: Present: RRR, +S1, +S2. Absent: diastolic murmur, gallop, rubs, systolic murmur - GI/Abdominal GI/Abdominal exam: Present: normal bowel sounds, soft, no peritoneal signs. Absent: distended, tenderness - Extremities Exam Extremities exam: Present: warm, radial pulses palpable and symmetrical. Absent : calf tenderness, cyanotic, pedal edema Additional comments: Pedal pulses absent. Multiple ulcers with eschar and dry gangrene involving plantar surfaces of multiple toes on bilateral lower extremities. - Neurological Exam Neurological exam: Present: alert, oriented X3, no focal deficits. Absent: facial droop, speech deficit Internal Medicine: Result - Labs CBC & Chem 7: 08/25/17 01:05 08/25/17 01:05 Labs: Short CBC 08/25/17 Range/Units 01:05 WBC 13.9 H (4.3-11.1) K/mcL Hgb 11.7 L (12.9-16.9) g/dL Hct 37.6 (37.5-50.1) % Plt Count 96 L (140-400) K/mcL Neutrophils # 12.9 H (1.6-8.9) K/mcL BMP 08/25/17 01:05 Sodium 136 Potassium 4.2 Chloride 106 Carbon Dioxide 18 L BUN 44 H Creatinine 1.77 H Glucose 137 H Calcium 8.3 L - ABG Interpretation ABG results: PT/INR, D-dimer PT 18.9 Seconds (9.4-12.1) H 08/23/17 08:12 Consult Discharge Plan - Plan Referrals: NONE,PCP [Primary Care Provider] -
[2017-08-25] MEDS: Heparin 25,000 UNIT/500 ML D5W 25,000 UNIT/500 ML BAG IVC SCH (18:02)
[2017-08-25] MEDS: dilTIAZem HCl 100 MG in D5% in Water 50 ML IVC SCH (18:03)
[2017-08-25 18:42] LABS: Bilirubin,Urine Negative (Negative); Blood,Urine Large (Negative); Clarity,Urine Cloudy (Clear); Color,Urine Dark Yellow (Yellow); Glucose,Urine (UA) Normal (Normal); Ketones,Urine Negative (Negative); Leukocyte Esterase,Urine Negative (Negative); Nitrite,Urine Negative (Negative); Protein,Urine 30 mg/dL (Neg-Trace); Specific Gravity,Urine 1.025 (1.010-1.025); Urobilinogen,Urine Normal (Normal)
[2017-08-25 18:44] LABS: Hyaline Casts,Urine None Seen per lpf (None-Few); RBC,Urine 50-100 per hpf (0-3); Squamous Epithelial Cell,Urine Moderate per lpf (None-Few); WBC,Urine 0-3 per hpf (0-3)
[2017-08-25 19:10] LABS: Triple Phosphate Crystal,Urine Present
[2017-08-25 19:11] LABS: Amorphous Sediment,Urine Few (Few); Bacteria,Urine Few per hpf (None-Few)
[2017-08-25] MEDS: Acetaminophen 325 MG TABLET PO PRN (21:00)
[2017-08-26] MEDS: dilTIAZem HCl 100 MG in D5% in Water 50 ML IVC SCH (00:28)
[2017-08-26 00:43] LABS: Basophils % 0.1 %; Immature Granulocytes % 0.5 % (0-4); Immature Platelets 8.2 % (1.1-6.1); Lymphocytes # 0.5 K/mcL (0.6-4.6); Lymphocytes % 3.3 %; Mean Corpuscular HGB Conc 31.3 g/dL (31.6-35.5); Mean Corpuscular Hemoglobin 23.6 pg (28.0-33.3); Mean Corpuscular Volume 75.5 fL (83.0-100.0); Monocytes # 0.5 K/mcL (0.0-1.3); Monocytes % 3.3 %; Neutrophils # 13.1 K/mcL (1.6-8.9); Platelet Count 107 K/mcL (140-400); Red Blood Count 4.24 M/mcL (4.19-5.50); Red Cell Distribution Width 22.7 % (11.5-14.5); Segmented Neutrophils % 92.8 %
[2017-08-26 00:58] LABS: Magnesium 1.6 mg/dL (1.6-2.6); Phosphorous 3.2 mg/dL (2.3-4.7)
[2017-08-26 00:59] LABS: Calcium 8.2 mg/dL (8.6-10.8); Potassium 4.3 mEq/L (3.5-4.5)
[2017-08-26 01:19] LABS: Burr Cells 2+ (Not Present); Hypochromasia Present (Not Present); Platelet Estimate Decreased (Normal)
[2017-08-26] MEDS: Vancomycin 1,250 MG in D5% in Water 250 ML IVPB SCH (03:58)
[2017-08-26 04:38] LABS: Protein/Creatinine Ratio,Urine 0.34 mg/mg (0-0.20)
[2017-08-26] MEDS: Piperacillin/Tazobactam 3.375 GM/200 ML BAG IVPB SCH (06:21)
[2017-08-26] MEDS: *HR* Acetylcysteine 20% 600 MG/3 ML ORAL SYRINGE PO SCH ×2 (06:27→23:34)
--- NOTE | 2017-08-26 07:59 | Cardiology Progress Note ---
Date of Encounter: 08/26/17 Time of Encounter: 08:00 Assessment and Plan (1) Atrial fibrillation with RVR Current Visit: Yes Status: Acute Per Cardiology: Presumably new onset, in setting of CHF and bilateral lower extremity cellulitis. A-Fib RVR on presentation. HR currently 90s. Avg HR 94 bpm over 12 hours. Will increase Toprol XL to 150 mg daily. Wean off cardizem gtt given CMP. Echo LVEF 15-20%. Severely reduced LV systolic function - appears global with atypical septal motion. Currently on heparin gtt for anticoagulation. [id number] (Age, HTN, CAD, DM, CHF). Will need to discuss detention anticoagulation prior to discharge due to high CVA risk. Continue heparin gtt for now pending procedures. (2) Cardiomyopathy Current Visit: Yes Status: Acute Per Cardiology: Echo--LVEF 15-20%. Severely reduced LV systolic function - appears global with atypical septal motion. RV size appears normal. Function is moderate to severely reduced. ICMP vs NICMP. Known hx of CAD and CABG in 2011, no recent ischemic evaluation. Pt denies hx of CMP, but poor historian. Recommend C to further evaluate. R/B/A discussed and pt is agreeable. Seen by palliative yesterday. Patient and family agreed that they would like to proceed with LHC with known multiple co-morbidities. Current clinical course is complicated by GERRY, CMP, PAD with possible need for bilateral AKAs. On Hep gtt, asa, statin, BB. No ACEi due to GERRY. Initial plan was for catheterization tomorrow, however discussed with nephrology-- plans for aggressive IV diuresis with Lasix and recommendations to delay catheterization to evaluate kidney function. Chest pain -free. Patient desires to proceed with catheterization when clinically appropriate. Qualifiers: Cardiomyopathy type: unspecified Qualified Code(s): I42.9 - Cardiomyopathy , unspecified (3) CAD (coronary artery disease) Current Visit: Yes Status: Chronic Per Cardiology: Hx of 2 vessel CABG and valve replacement in 2010 at a [facility], [facility]. Qualifiers: Coronary Disease-Associated Artery/Lesion type: [place] artery [place] vs. transplanted heart: [place] heart Associated angina: without angina Qualified Code(s): I25.10 - Atherosclerotic heart disease of [place] coronary artery without angina pectoris (4) PAD (peripheral artery disease) Current Visit: Yes Status: Acute Per Cardiology: Management per vascular surgery. No pulses noted (not new). (5) GERRY (acute kidney injury) Current Visit: Yes Status: Acute Per Cardiology: Nephrology following. On Mucomyst. Plans for diuresis today. Discussion w patient/family: The assessment and plan as outlined above was discussed with the patient who expressed understanding and agreement. All questions were answered. Thank you for involving us in the care of your patient. Please call with any questions. Subjective Principal diagnosis: A-Fib RVR, CHF, CMP Interval history: Patient reports short of breath has improved during hospital stay. He denies any chest pain or palpitations currently. Objective Vital Signs, Last 4 Hours Temp Pulse Resp BP Pulse Ox 08/26/17 07:38 97.9 F 97 18 116/70 100 08/26/17 05:00 97.4 F L 91 16 111/76 100 General: Conversant, No Apparent Distress HEENT: Atraumatic, Normocephaly Cardiac: No Murmur, Other (Irregularly irregular) Lungs: Normal Breath Sounds, Other (Decreased breath sounds to bilateral bases) Neuro: Alert and responsive, No focal deficits noted Abdomen: Soft, Non-Tender Skin: Other (Bilateral lower extremity is with multiple necrotic areas noted, no pulses noted) Results 08/26/17 00:34 08/26/17 00:34 Lab Results Laboratory Tests 08/23/17 08/26/17 08/26/17 08:12 00:34 00:34 Hgb 12.5 L 10.0 L D Hct 41.1 32.0 L Creatinine 1.81 H Est GFR (Non-Af Amer) 37 L ITS Impressions Echocardiogram 08/23/17 03:33 Impressions: LVEF 15-20%. Severely reduced LV systolic function - appears global with atypical septal motion. Mildly dilated left ventricle. Indeterminate diastolic function. RV size appears normal. Function is moderate to severely reduced. Possible presence of a bioprosthetic aortic valve. History was not provided - recommend correlate clinically. Normal Doppler function. PV 2.3m/s, MG 14 mmHg. Mild mitral regurgitation. Mild-moderate tricuspid regurgitation. Mild pulmonic regurgitation. Borderline pulmonary hypertension. Pleural effusion. Left Ventricular Wall Motion: Rest Echo Findings The apex, apical inferior, mid inferior, basal inferior, apical anterior, mid anterior, basal anterior, apical septal, mid inferior septal, basal inferior septal, apical lateral, mid anterior lateral, basal anterior lateral, mid anterior septal, mid inferior lateral, basal anterior septal and basal inferior lateral watkins were hypokinetic. Findings: Study Quality * Technically adequate exam. ECG Findings * Atrial fibrillation with BBB. Left Ventricle * LVEF 15-20%. * Mildly dilated left ventricle. * Indeterminate diastolic function. Right Ventricle * RV size appears normal. Function is moderate to severely reduced. Left Atrium * Severely dilated left atrium. Right Atrium * Severely dilated right atrium. Aortic Valve * No aortic regurgitation. * Aortic valve not well visualized - possibly a bioprosthetic valve. * No aortic stenosis. Mitral Valve * Normal mitral valve structure. * No mitral stenosis. * Mild mitral regurgitation. Tricuspid Valve * Normal tricuspid valve structure. * Mild-moderate tricuspid regurgitation. * Estimated RA pressure is 8 mmHg. * Estimated RVSP is 34 mmHg. * Borderline pulmonary hypertension. Pulmonic Valve * Pulmonic valve is not well visualized. * No pulmonic stenosis. * Mild pulmonic regurgitation. Pulmonary Artery * Pulmonary artery not well visualized. Aorta * Not fully visualized. Pericardium * There is no pericardial effusion present. Interatrial Septum * No evidence of PFO by color Doppler. IVC * The IVC is dilated. * < 50% respiratory change. Retroperitoneum Ultrasound 08/24/17 09:00 IMPRESSION: Mild right hydronephrosis. Possible twinkle artifact at the left renal inferior pole which would suggest a tiny renal stone. Left kidney is smaller than the right but otherwise normal in appearance. Large bilateral effusions and large volume abdominal ascites. D/ / Jordan Peres / Jordan Peres Interpreting Provider: oJrdan Peres Active Medications Acetaminophen (Tylenol) 650 mg PO Q6HR PRN PRN Reason: Mild Pain (1-3) Stop: 02/22/18 03:31 Last Admin: 08/25/17 21:00 Dose: 650 mg Acetylcysteine (Acetylcysteine 20%) 600 mg PO BID [facility] Stop: 08/26/17 09:01 Last Admin: 08/26/17 06:27 Dose: Not Given Aspirin (Aspirin Ec) 81 mg PO DAILY [facility] Stop: 02/22/18 09:01 Last Admin: 08/25/17 09:00 Dose: 81 mg Atorvastatin Calcium (Lipitor) 40 mg PO HS [facility] Stop: 02/23/18 21:01 Last Admin: 08/25/17 20:45 Dose: 40 mg Dextrose/Water (Dextrose 50% (Syg)) 25 ml IVP AD PRN PRN Reason: Hypoglycemia Stop: 02/22/18 09:29 Glucagon (Glucagen) 1 mg IM ONCE PRN PRN Reason: Hypoglycemia Stop: 02/22/18 09:29 Glucose (Gluctose) 15 gm PO ONCE PRN PRN Reason: Hypoglycemia Stop: 02/22/18 09:29 Glucose (Gluctose) 30 gm PO ONCE PRN PRN Reason: Hypoglycemia Stop: 02/22/18 09:29 Heparin Sodium (Porcine) (Heparin) 6,300 unit 70 unit/kg (6300 unit) IVP Q6HR PRN PRN Reason: SEE COMMENTS Stop: 02/22/18 09:31 Heparin Sodium (Porcine) (Heparin) 3,100 unit 35 unit/kg (3100 unit) IVP Q6H PRN PRN Reason: SEE COMMENTS Stop: 02/22/18 09:31 Last Admin: 08/25/17 17:59 Dose: 3,100 unit Heparin Sodium/Dextrose (Heparin 25,000 Unit/500 Ml D5w) 25,000 unit in 500 mls @ 25.004 mls/hr IVC .Q20H [facility]; 14 UNIT/KG/HR PRN Reason: Protocol Stop: 02/22/18 04:16 Last Titration: 08/26/17 00:56 Dose: 10.63 unit/kg/hr, 19 mls/hr Vancomycin HCl 1,250 mg/ (Dextrose) 250 mls @ 166.667 mls/hr IVPB Q24H [facility] Stop: 02/22/18 05:01 Last Admin: 08/26/17 03:58 Dose: 166.667 mls/hr Diltiazem HCl 100 mg/ Dextrose 50 mls @ 2.5 mls/hr IVC .Q20H [facility]; 5 MG/HR PRN Reason: Protocol Stop: 02/22/18 04:46 Last Admin: 08/26/17 00:28 Dose: 10 mg/hr, 5 mls/hr Dextrose (Dextrose 5%) 1,000 mls @ 100 mls/hr IVC .Q10H PRN PRN Reason: HYPOGLYCEMIA Stop: 02/22/18 09:29 Piperacillin Sod/Tazobactam Sod (Zosyn Premix 3.375 Gm/200 Ml) 3.375 gm in 200 mls @ 50 mls/hr IVPB Q8H [facility] Stop: 02/22/18 10:01 Last Admin: 08/26/17 06:21 Dose: 50 mls/hr Insulin Human Lispro (Humalog) 0 units SQ HS [facility] PRN Reason: Protocol Stop: 02/23/18 21:01 Last Admin: 08/25/17 22:39 Dose: Not Given Insulin Human Lispro (Humalog) 0 units SQ TIDAC [facility] PRN Reason: Protocol Stop: 02/23/18 11:31 Last Admin: 08/25/17 16:32 Dose: Not Given Metoprolol Succinate (Toprol Xl) 100 mg PO DAILY [facility] Stop: 02/24/18 09:01 Last Admin: 08/25/17 09:00 Dose: 100 mg Naloxone HCl (Narcan) 0.4 mg IVP Q2MIN PRN PRN Reason: Opioid Reversal Stop: 02/22/18 03:31 - Imaging and Cardiology Echo: report reviewed Cardiac cath: pending (tele shows afib 90's) - EKG Interpretation EKG results cardiology: other (tele shows afib 90's, avg HR past 12 hrs 94, few NSVT episodes, longest 5 beats) Consult Discharge Plan - Plan Referrals: NONE,PCP [Primary Care Provider] -
[2017-08-26] MEDS: Acetaminophen 325 MG TABLET PO PRN (08:40)
[2017-08-26] MEDS: Metoprolol XL (24 HR) Succ 50 MG TAB.ER.24H PO SCH (08:41)
[2017-08-26] MEDS: Aspirin Enteric Coated 81 MG Tablet PO SCH (08:41)
[2017-08-26] MEDS: Insulin LISPRO 300 UNITS/3 ML VIAL SQ SCH ×4 (08:41→23:33)
--- NOTE | 2017-08-26 10:56 | Nephrology Progress Note ---
Date of Encounter: 08/26/17 Time of Encounter: 09:15 - Assessment and Plan (1) GERRY (acute kidney injury) Current Visit: Yes Status: Acute Progressively worsening SCr consistent with GERRY of multifactorial etiology: right hydronephrosis (with mild left renal atrophy), plus with his severe CMP and AF Continue naranjo for now d/t the hydronephrosis. When the naranjo is removed at some point, he may need to have repeat imaging and/or bladder scan -- if hydro recurs, then would recommend consulting Urology. No signs of Rhabdo. The retroperitoneal U/S reviewed b/l pleural effusions and ascites: given this tough situation, he does not have great options, but there may be a cardiorenal component, so will recommend starting a loop diuretic (lasix 40mg IV bid) with albumin to ideally avoid worsening his already relatively low BPs. I described in detail with the pt the R/B/I and potential SEs, such as seeing his SCr rise. He voiced understanding. Currently he has no indications for RING ATTACHER. However, I did have a long conversation with him regarding the possibility of dialysis at some point. Continue to follow a renal protective/supportive strategy: dose Rx by GFR, avoid NSAIDs or other nephrotoxins. Discussed with Cardio SENIOR RISK MANAGER and Hospitalists: since the odds of seeing the SCr worsen while on Lasix are possible, then ideally I would recommend avoiding concomitant nephrotoxin exposures to IV contrast (from the [facility]) and Vanco. Will follow with you on this very complex and high risk patient. (2) Atrial fibrillation with RVR Current Visit: Yes Status: Acute as per primary/Cardio (3) Cardiomyopathy Current Visit: Yes Status: Acute as per primary/Cardio Qualifiers: Cardiomyopathy type: unspecified Qualified Code(s): I42.9 - Cardiomyopathy , unspecified (4) DM2 (diabetes mellitus, type 2) Current Visit: Yes Status: Chronic as per primary Qualifiers: Diabetes mellitus complication status: without complication Diabetes mellitus paperboard machine operator insulin use: without intermediate use Qualified Code(s): E11.9 - Type 2 diabetes mellitus without complications (5) Hypertension Current Visit: Yes Status: Chronic He has relatively poor hemodynamics with lower BPs. Avoid LIDIA or ARB d/t the GERRY Qualifiers: Hypertension type: essential hypertension Qualified Code(s): I10 - Essential (primary) hypertension (6) PAD (peripheral artery disease) Current Visit: Yes Status: Acute Appears to be inducing dry gangrene. (7) Pleural effusion Current Visit: Yes Status: Acute see above, and will check a CXR Pa/Lat in the AM. He just had portable CXR in the ER at admission. (8) Ascites Current Visit: Yes Status: Acute as per primary Qualifiers: Ascites type: other type Qualified Code(s): R18.8 - Other ascites (9) Hydronephrosis, right Current Visit: Yes Status: Acute See above (10) Left renal atrophy Current Visit: Yes Status: Acute Suspect chronic. Would recommend renal doppler at some point, but since his BPs are not accelerated, this is not an urgent issue for work up KAYCE at this point. Subjective Principal diagnosis: A-Fib RVR, CHF, CMP Interval history: Pt was s/e and he reported no new CP or N/V/D or F/C. He did not affirm any problems with the naranjo catheter placement. He was by himself (no family available). He voiced having an appetite and was eating his breakfast and also voiced feeling slightly improved vs yesterday. Objective - Vital Signs Vital signs: Vital Signs Temp Pulse Resp BP Pulse Ox 08/26/17 09:00 100 08/26/17 07:38 97.9 F 97 18 116/70 100 08/26/17 05:00 97.4 F L 91 16 111/76 100 08/26/17 00:00 98.2 F 103 22 126/81 99 08/25/17 20:55 95 08/25/17 19:00 98.6 F 104 20 126/86 95 08/25/17 16:00 97.8 F 110 18 119/92 08/25/17 13:21 120 115/87 08/25/17 12:00 98.3 F 98 17 115/87 99 08/25/17 11:00 112 108/82 100 Intake and Output 08/25/17 08/26/17 08/26/17 23:59 07:59 15:59 Intake Total 1150 / 1150 466 / 466 340 / 340 Output Total 1400 / 1400 1000 / 1000 Balance -250 / -250 -534 / -534 340 / 340 Intake: IV Fluids 450 / 450 406 / 406 340 / 340 Heparin 25,000 UNIT/500 ML D5W 200 / 200 156 / 156 300 / 300 25,000 unit In 500 ml @ 14 UNIT /KG/HR 25.004 mls/hr IVC .Q20H K[facility]LEE Rx#:[id number] Cardizem 100 MG In Dextrose 5% 50 / 50 50 / 50 40 / 40 (ADD-Beryl) 50 ML @ 5 MG/HR 2 .5 mls/hr IVC .Q20H KAYLEE Rx#: [id number] Zosyn Premix 3.375 GM/200 ML 3. 200 / 200 200 / 200 375 gm In 200 ml @ 50 mls/hr IVPB Q8H [facility]LEE Rx#:[id number] Oral 700 / 700 60 / 60 Output: Urine 0 / 0 Catheter 1400 / 1400 1000 / 1000 Coude 600 / 600 Other: Meal Lunch Percent of Meal Consumed 0% Stool Size Moderate Copious Stool Consistency liquid soft Stool Color Black Black # Bowel Movement Diapers 3 Weight 91.7 kg Blood Glucose* 121 165 Patient Weight 08/26/17 23:59 Weight 91.7 kg - General Appearance General appearance: Present: well-developed, appears started age, cachectic, chronically ill, frail, anxious EENT: Present: ATNC, PERRL, mucous membranes moist Neck: Present: supple Respiratory: Present: course breath sounds Cardiology: Present: edema, irregular rhythm, normal S1, normal S2 Gastrointestinal: Present: normoactive bowel sounds, no guarding, obese Additional Comments: Slight fluid wave noted, but no tight abdominal distension. Integumentary: Present: erythema, ecchymotic, hyperpigmentation, chronic venous stasis Additional Comments: Bilateral LE dry appearing wounds Neurologic: Present: no focal deficit, no asterixis, alert and oriented x3 Musculoskeletal: Present: no erythema, no cyanosis, no clubbing Psychiatric: Present: depressed (flat affect (he denied feeling "depressed")), cooperative - Lab 08/26/17 00:34 08/26/17 00:34 Most recent lab results Calcium 8.2 mg/dL (8.6-10.8) L 08/26/17 00:34 Phosphorus 3.2 mg/dL (2.3-4.7) 08/26/17 00:34 Magnesium 1.6 mg/dL (1.6-2.6) 08/26/17 00:34 Urine Creatinine 32 mg/dL 08/26/17 04:00 Urine Total Protein 11 mg/dL (1-14) 08/26/17 04:00 Consult Discharge Plan - Plan Referrals: NONE,PCP [Primary Care Provider] -
[2017-08-26] MEDS ORDERED: Albumin 25% 25gram/100mL 25 GM/100 ML IV.SOLN IVPB SCH (11:00)
[2017-08-26] MEDS ORDERED: Furosemide 40 MG/4 ML VIAL IVP SCH (11:00)
--- NOTE | 2017-08-26 11:36 | Internal Med Progress Note ---
Date of Encounter: 08/26/17 Time of Encounter: 11:00 - Assessment and plan (1) Bilateral cellulitis of lower leg Current Visit: Yes Status: Acute Assessment and plan: No clear signs of cellulitis at this time. We will de-escalate antibiotics. No pus or drainage noted. Wounds appear to be dry and chronic. (2) Congestive heart failure Current Visit: Yes Status: Acute Assessment and plan: Lasix was held due to worsening renal function. Discussed with nephrology. Will start patient back on Lasix along with albumin to protect his kidneys. Follow renal function closely. Qualifiers: Congestive heart failure type: systolic Congestive heart failure chronicity : acute on chronic Qualified Code(s): I50.23 - Acute on chronic systolic ( congestive) heart failure (3) GERRY (acute kidney injury) Current Visit: Yes Status: Acute Assessment and plan: Renal function continues to get worse. Creatinine 1.8 today. Discussed with nephrology. Plan on giving Lasix along with albumin today. Follow renal function. High risk for complications (4) Ascites Current Visit: Yes Status: Acute Assessment and plan: Will plan for paracentesis once Acute conditions have been treated Qualifiers: Ascites type: other type Qualified Code(s): R18.8 - Other ascites (5) CAD (coronary artery disease) Current Visit: Yes Status: Chronic Assessment and plan: Plan is for cardiac catheterization. Unfortunately given the patient's poor renal function, high risk for renal failure requiring dialysis. Discussed with cardiology. Will continue heparin for now. We will hold off on cardiac catheterization until renal function improves or nephrology clears. Qualifiers: Coronary Disease-Associated Artery/Lesion type: [place] artery [place] vs. transplanted heart: [place] heart Associated angina: without angina Qualified Code(s): I25.10 - Atherosclerotic heart disease of [place] coronary artery without angina pectoris (6) Cardiomyopathy Current Visit: Yes Status: Acute Assessment and plan: EF of 15%. Continue aspirin, statin and beta tamir. Resume Lasix today along with albumin. Metoprolol dosage has been increased by cardiology due to A. fib with RVR Qualifiers: Cardiomyopathy type: unspecified Qualified Code(s): I42.9 - Cardiomyopathy , unspecified (7) DM2 (diabetes mellitus, type 2) Current Visit: Yes Status: Chronic Assessment and plan: Fairly controlled. Continue current insulin regimen Qualifiers: Diabetes mellitus complication status: without complication Diabetes mellitus prison insulin use: without manager terminal use Qualified Code(s): E11.9 - Type 2 diabetes mellitus without complications (8) Hypertension Current Visit: Yes Status: Chronic Assessment and plan: Blood pressure is well controlled at this time. Qualifiers: Hypertension type: essential hypertension Qualified Code(s): I10 - Essential (primary) hypertension (9) PAD (peripheral artery disease) Current Visit: Yes Status: Acute Assessment and plan: Continue aspirin, statin. Patient is not an ideal candidate for intervention although he does require it. Vascular surgery following. (10) Pleural effusion Current Visit: Yes Status: Acute Assessment and plan: Likely from CHF. Consider thoracentesis once acute conditions have been treated. - Subjective Interval history: Patient is lying in bed. Appears comfortable. Denies any new complaints at this time. No fever or chills reported overnight - Constitutional Vitals: Temp Pulse Resp BP Pulse Ox 97.9 F 97 18 116/70 100 08/26/17 07:38 08/26/17 07:38 08/26/17 07:38 08/26/17 07:38 08/26/17 09:00 General appearance: Present: cooperative, mild distress, A&O X 3, pleasant, answers questions appropriately - Respiratory Respiratory exam: Present: CTAB. Absent: accessory muscle use, rales, rhonchi, wheezes - Cardiovascular Cardiovascular exam: Present: RRR, +S1, +S2. Absent: diastolic murmur, gallop, rubs, systolic murmur - GI/Abdominal GI/Abdominal exam: Present: normal bowel sounds, soft, no peritoneal signs. Absent: distended, tenderness - Extremities Exam Extremities exam: Present: pedal edema, radial pulses palpable and symmetrical. Absent: calf tenderness, cyanotic Additional comments: Poor pedal pulses. necrotic lesions present on the plantar surfaces of multiple bilateral toes. - Neurological Exam Neurological exam: Present: alert, oriented X3, no focal deficits. Absent: facial droop, speech deficit Internal Medicine: Result - Labs CBC & Chem 7: 08/26/17 00:34 08/26/17 00:34 Labs: Short CBC 08/26/17 Range/Units 00:34 WBC 14.1 H (4.3-11.1) K/mcL Hgb 10.0 L D (12.9-16.9) g/dL Hct 32.0 L (37.5-50.1) % Plt Count 107 L (140-400) K/mcL Neutrophils # 13.1 H (1.6-8.9) K/mcL BMP 08/26/17 00:34 Sodium 136 Potassium 4.3 Chloride 106 Carbon Dioxide 21 BUN 66 H D Creatinine 1.81 H Glucose 144 H Calcium 8.2 L Urine 08/25/17 Range/Units 18:30 Urine Color Dark Yellow (Yellow) Urine Clarity Cloudy A (Clear) Urine pH 6.0 (5.0-8.0) pH Units Ur Specific [place] 1.025 (1.010-1.025) Urine Protein 30 H (Neg-Trace) mg/dL Urine Glucose (UA) Normal (Normal) mg/dL - ABG Interpretation ABG results: PT/INR, D-dimer PT 18.9 Seconds (9.4-12.1) H 08/23/17 08:12 Consult Discharge Plan - Plan Referrals: NONE,PCP [Primary Care Provider] -
--- NOTE | 2017-08-26 13:41 | Palliative Progress Note ---
Date of Encounter: 08/26/17 Time of Encounter: 13:00 - Assessment and plan (1) Counseling regarding advanced care planning and goals of care Current Visit: Yes Status: Acute Assessment and plan: Patient drowsy today - awakens and answers some questions but falls asleep with conversation. Still seems to have difficulty processing the complexity of his situation. His brother Ruperto, did bring in pt power of single stroke preformer andn living will. Ruperto is Medical POA. Patient's son Omid ([phone] - cell/ [phone] home) also present and both asked many questions regarding to what all is involved ahead and how sick he is. After reviewing advanced directives, they both agree that doing heroic measures would be against pt's wishes, and he would likely not survive to leave the hospital. Transitioned to DNR/DNI at this time. They know that medications for renal status will be started and that heart cath will not be done tomorrow. They are going to discuss further, and state that they may decide to stop aggressive measures and focus on comfort care. Discussed hospice care briefly. Patient is in our system as Medicare only - brother states that no family would be available to care for him. I explained that nursing facility would be private pay. They will need to meet with social work nurse, and I will try and arrange for tomorrow afternoon. D/W Sreekanth Brooks. (2) GERRY (acute kidney injury) Current Visit: Yes Status: Acute Assessment and plan: Nephrology following closely..Furosemide/Albumin challenge today (3) Cardiomyopathy Current Visit: Yes Status: Acute Assessment and plan: Spoke with Sreekanth Brooks CHROME TANNING DRUM OPERATOR regarding clinical situation and discussion with POA. Recommend that discussions continue with pt sonOmid, and pt brother Ruperto. They are beginning to consider comfort care only. Qualifiers: Cardiomyopathy type: unspecified Qualified Code(s): I42.9 - Cardiomyopathy , unspecified (4) PAD (peripheral artery disease) Current Visit: Yes Status: Acute - Time Spent With Patient Total time spent is greater than 50% in coordination of care (as documented) at patient's floor/unit and/or counseling patient: Greater than 35 minutes - Subjective Interval history: Patient sleeping most of day, but does awaken and answer few questions. Cardiology and nephrology notes reviewed. Renal function continues to decline. Hgb drifting downward as well. He appears very weak. - Constitutional Vitals: Abnormal lab results WBC 14.1 K/mcL (4.3-11.1) H 08/26/17 00:34 Hgb 10.0 g/dL (12.9-16.9) L D 08/26/17 00:34 Hct 32.0 % (37.5-50.1) L 08/26/17 00:34 MCV 75.5 fL (83.0-100.0) L 08/26/17 00:34 MCH 23.6 pg (28.0-33.3) L 08/26/17 00:34 MCHC 31.3 g/dL (31.6-35.5) L 08/26/17 00:34 RDW 22.7 % (11.5-14.5) H 08/26/17 00:34 Plt Count 107 K/mcL (140-400) L 08/26/17 00:34 Neutrophils # 13.1 K/mcL (1.6-8.9) H 08/26/17 00:34 Lymphocytes # 0.5 K/mcL (0.6-4.6) L 08/26/17 00:34 Platelet Estimate Decreased (Normal) L 08/26/17 00:34 Large Platelets Present (Not Present) A 08/24/17 02:58 Immature Plt Fraction 8.2 % (1.1-6.1) H 08/26/17 00:34 Hypochromasia Present (Not Present) A 08/26/17 00:34 Poikilocytosis 1+ (Not Present) A 08/25/17 01:05 Anisocytosis 1+ (Not Present) A 08/25/17 01:05 Microcytosis Present (Not Present) A 08/24/17 02:58 Target Cells 1+ (Not Present) A 08/24/17 02:58 Tear Drop Cells 1+ (Not Present) A 08/24/17 02:58 Ovalocytes 1+ (Not Present) A 08/24/17 02:58 [place] Cells 2+ (Not Present) A 08/26/17 00:34 Acanthocytes (Spur) 3+ (Not Present) A 08/24/17 02:58 Schistocytes 1+ (Not Present) A 08/23/17 08:12 PT 18.9 Seconds (9.4-12.1) H 08/23/17 08:12 APTT 89.4 Seconds (26.0-36.0) H 08/26/17 07:35 BUN 66 mg/dL (8-26) H D 08/26/17 00:34 Creatinine 1.81 mg/dL (0.72-1.25) H 08/26/17 00:34 Est GFR ( Amer) 44 (> 60) L 08/26/17 00:34 Est GFR (Non-Af Amer) 37 (> 60) L 08/26/17 00:34 BUN/Creatinine Ratio 36 (6-26) H 08/26/17 00:34 Glucose 144 mg/dL (70-99) H 08/26/17 00:34 POC Glucose 164 (58-89) H 08/25/17 12:27 Calculated Osmolality 304 (280-300) H 08/26/17 00:34 Calcium 8.2 mg/dL (8.6-10.8) L 08/26/17 00:34 Urine Clarity Cloudy (Clear) A 08/25/17 18:30 Urine Protein 30 mg/dL (Neg-Trace) H 08/25/17 18:30 Urine Blood Large (Negative) H 08/25/17 18:30 Urine Microscopic RBC 50-100 per hpf (0-3) H 08/25/17 18:30 Ur Squamous Epith Cells Moderate per lpf (None-Few) H 08/25/17 18:30 Microalb/Creat Ratio 159 (0-30) H 08/26/17 04:00 Protein/Creatinin Ratio 0.34 mg/mg (0-0.20) H 08/26/17 04:00 General appearance: Present: no acute distress - Respiratory Respiratory exam: Present: decreased breath sounds, CTAB - Cardiovascular Cardiovascular exam: Present: +S1, +S2, systolic murmur - GI/Abdominal GI/Abdominal exam: Present: distended, hypoactive bowel sounds, soft - Additional comments: Vera patent - Extremities Exam Additional comments: Remain with erythema, bilateral necrotic ulcers on feet/lower extremities - Neurological Exam Neurological exam: Present: alert Additional comments: Oriented to name and place. Inappropriate statements at times. Palliative Quality Palliative Quality: Screen for Code Status: Yes, Screen for Goals of Care: Yes, Screen for Pain: Yes, If Pain Regimen Started, Initiate Bowel Regimen: NA, Screen for Nausea/Vomitting: Yes Code Status: 08/23/17 03:30 Resuscitation Status: Active [RES] Routine Comment: Resuscitation Status: Full Code - Labs CBC & Chem 7: 08/26/17 00:34 08/26/17 00:34 Labs: Laboratory Results - last 24 hr 08/25/17 08/25/17 08/25/17 07:34 12:27 13:20 WBC RBC Hgb Hct MCV MCH MCHC RDW Plt Count MPV Immature Gran % Seg Neutrophils % Lymphocytes % Monocytes % Eosinophils % Basophils % Neutrophils # Lymphocytes # Monocytes # Eosinophils # Basophils # Platelet Estimate Immature Plt Fraction Hypochromasia [place] Cells APTT Sodium Potassium Chloride Carbon Dioxide BUN Creatinine Est GFR ( Amer) Est GFR (Non-Af Amer) BUN/Creatinine Ratio Glucose POC Glucose 159 H 164 H Calculated Osmolality Calcium Phosphorus Magnesium Creatine Kinase Urine Color Urine Clarity Urine pH Ur Specific [place] Urine Protein Urine Glucose (UA) Urine Ketones Urine Blood Urine Nitrite Urine Bilirubin Urine Urobilinogen Ur Leukocyte Esterase Urine Microscopic RBC Urine Microscopic WBC Ur Squamous Epith Cells Triple Phos Crystals Amorphous Sediment Urine Bacteria Hyaline Casts Ur Culture Indicated? Urine Creatinine Urine Microalbumin Microalb/Creat Ratio Protein/Creatinin Ratio Urine Total Protein Stl C. diff Tox B Gene Negative 08/25/17 08/25/17 08/26/17 17:15 18:30 00:34 WBC 14.1 H RBC 4.24 Hgb 10.0 L D Hct 32.0 L MCV 75.5 L MCH 23.6 L MCHC 31.3 L RDW 22.7 H Plt Count 107 L MPV TNP Immature Gran % 0.5 Seg Neutrophils % 92.8 Lymphocytes % 3.3 Monocytes % 3.3 Eosinophils % 0.0 Basophils % 0.1 Neutrophils # 13.1 H Lymphocytes # 0.5 L Monocytes # 0.5 Eosinophils # 0.0 Basophils # 0.0 Platelet Estimate Decreased L Immature Plt Fraction 8.2 H Hypochromasia Present A [place] Cells 2+ A APTT 54.5 H D Sodium Potassium Chloride Carbon Dioxide BUN Creatinine Est GFR ( Amer) Est GFR (Non-Af Amer) BUN/Creatinine Ratio Glucose POC Glucose Calculated Osmolality Calcium Phosphorus Magnesium Creatine Kinase Urine Color Dark Yellow Urine Clarity Cloudy A Urine pH 6.0 Ur Specific [place] 1.025 Urine Protein 30 H Urine Glucose (UA) Normal Urine Ketones Negative Urine Blood Large H Urine Nitrite Negative Urine Bilirubin Negative Urine Urobilinogen Normal Ur Leukocyte Esterase Negative Urine Microscopic RBC 50-100 H Urine Microscopic WBC 0-3 Ur Squamous Epith Cells Moderate H Triple Phos Crystals Present Amorphous Sediment Few Urine Bacteria Few Hyaline Casts None Seen Ur Culture Indicated? NO Urine Creatinine Urine Microalbumin Microalb/Creat Ratio Protein/Creatinin Ratio Urine Total Protein Stl C. diff Tox B Gene 08/26/17 08/26/17 08/26/17 00:34 00:34 00:34 WBC RBC Hgb Hct MCV MCH MCHC RDW Plt Count MPV Immature Gran % Seg Neutrophils % Lymphocytes % Monocytes % Eosinophils % Basophils % Neutrophils # Lymphocytes # Monocytes # Eosinophils # Basophils # Platelet Estimate Immature Plt Fraction Hypochromasia [place] Cells APTT 107.6 H D Sodium 136 Potassium 4.3 Chloride 106 Carbon Dioxide 21 BUN 66 H D Creatinine 1.81 H Est GFR ( Amer) 44 L Est GFR (Non-Af Amer) 37 L BUN/Creatinine Ratio 36 H Glucose 144 H POC Glucose Calculated Osmolality 304 H Calcium 8.2 L Phosphorus 3.2 Magnesium 1.6 Creatine Kinase 38 Urine Color Urine Clarity Urine pH Ur Specific [place] Urine Protein Urine Glucose (UA) Urine Ketones Urine Blood Urine Nitrite Urine Bilirubin Urine Urobilinogen Ur Leukocyte Esterase Urine Microscopic RBC Urine Microscopic WBC Ur Squamous Epith Cells Triple Phos Crystals Amorphous Sediment Urine Bacteria Hyaline Casts Ur Culture Indicated? Urine Creatinine Urine Microalbumin Microalb/Creat Ratio Protein/Creatinin Ratio Urine Total Protein Stl C. diff Tox B Gene 08/26/17 08/26/17 04:00 07:35 WBC RBC Hgb Hct MCV MCH MCHC RDW Plt Count MPV Immature Gran % Seg Neutrophils % Lymphocytes % Monocytes % Eosinophils % Basophils % Neutrophils # Lymphocytes # Monocytes # Eosinophils # Basophils # Platelet Estimate Immature Plt Fraction Hypochromasia [place] Cells APTT 89.4 H Sodium Potassium Chloride Carbon Dioxide BUN Creatinine Est GFR ( Amer) Est GFR (Non-Af Amer) BUN/Creatinine Ratio Glucose POC Glucose Calculated Osmolality Calcium Phosphorus Magnesium Creatine Kinase Urine Color Urine Clarity Urine pH Ur Specific [place] Urine Protein Urine Glucose (UA) Urine Ketones Urine Blood Urine Nitrite Urine Bilirubin Urine Urobilinogen Ur Leukocyte Esterase Urine Microscopic RBC Urine Microscopic WBC Ur Squamous Epith Cells Triple Phos Crystals Amorphous Sediment Urine Bacteria Hyaline Casts Ur Culture Indicated? Urine Creatinine 32 Urine Microalbumin 51 Microalb/Creat Ratio 159 H Protein/Creatinin Ratio 0.34 H Urine Total Protein 11 Stl C. diff Tox B Gene - ABG Interpretation ABG results: PT/INR, D-dimer PT 18.9 Seconds (9.4-12.1) H 08/23/17 08:12 Consult Discharge Plan - Plan Referrals: NONE,PCP [Primary Care Provider] -
[2017-08-26] MEDS: cephALEXin 250 MG CAPSULE PO SCH ×2 (17:14→23:32)
[2017-08-26] MEDS: Heparin 25,000 UNIT/500 ML D5W 25,000 UNIT/500 ML BAG IVC SCH (19:22)
[2017-08-26 22:20] LABS: Alpha 2 Globulin (PEP) 0.76 g/dL (0.48-1.05); Beta Globulin (PEP) 0.86 g/dL (0.48-1.10)
[2017-08-26] MEDS: Doxycycline 100 MG CAPSULE PO SCH (23:32)
[2017-08-26] MEDS: Albumin 25% 25gram/100mL 25 GM/100 ML IV.SOLN IVPB SCH (23:33)
[2017-08-26] MEDS: Furosemide 40 MG/4 ML VIAL IVP SCH (23:34)
[2017-08-27 06:03] LABS: Magnesium 1.5 mg/dL (1.6-2.6); Phosphorous 3.4 mg/dL (2.3-4.7)
[2017-08-27 06:56] LABS: Basophils % 0.1 %; Eosinophils % 0.4 %; Hematocrit 17.6 % (37.5-50.1); Immature Granulocytes % 0.6 % (0-4); Immature Platelets 8.5 % (1.1-6.1); Lymphocytes # 0.5 K/mcL (0.6-4.6); Mean Corpuscular HGB Conc 31.8 g/dL (31.6-35.5); Mean Corpuscular Hemoglobin 23.4 pg (28.0-33.3); Mean Corpuscular Volume 73.6 fL (83.0-100.0); Monocytes # 0.3 K/mcL (0.0-1.3); Monocytes % 3.1 %; Neutrophils # 9.7 K/mcL (1.6-8.9); Red Blood Count 2.39 M/mcL (4.19-5.50); Red Cell Distribution Width 22.2 % (11.5-14.5); Segmented Neutrophils % 90.8 %
[2017-08-27 06:57] LABS: Platelet Count 89 K/mcL (140-400)
[2017-08-27 07:01] LABS: Hemoglobin 5.6 g/dL (12.9-16.9)
[2017-08-27 07:28] LABS: Calcium 7.9 mg/dL (8.6-10.8); Potassium 3.8 mEq/L (3.5-4.5)
[2017-08-27 07:40] LABS: IFE Reflexed NOT DONE
--- NOTE | 2017-08-27 08:27 | Cardiology Progress Note ---
Date of Encounter: 08/27/17 Time of Encounter: 08:30 Assessment and Plan (1) Atrial fibrillation with RVR Current Visit: Yes Status: Acute Per Cardiology: Presumably new onset, in setting of CHF and bilateral lower extremity cellulitis. A-Fib RVR on presentation. HR currently 100s. Avg HR 94 bpm over 12 hours. On Toprol XL 150 mg daily. Cardizem gtt off. SBP 90's 100's. Anticipate HR will improve with PRBCs. Echo LVEF 15-20%. Severely reduced LV systolic function - appears global with atypical septal motion. Can consider addition of amiodarone if needed. Now off heparin gtt for anticoagulation-- guaiac + stool. Hgb down to 5, receiving 2 units PRBCs. [id number] (Age, HTN, CAD, DM, CHF). Patient and brother aware of increased stroke risk. 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 (2) Cardiomyopathy Current Visit: Yes Status: Acute Per Cardiology: Echo--LVEF 15-20%. Severely reduced LV systolic function - appears global with atypical septal motion. RV size appears normal. Function is moderate to severely reduced. ICMP vs NICMP. Known hx of CAD and CABG in 2011, no recent ischemic evaluation. Pt denies hx of CMP, but poor historian. Patient has seen SW and Palliative Care, now a DNR/CCA/DNI. Additionally, now with acute GI bleed with significant hemoglobin drop to 5 requiring PRBC transfusion. I had lengthy discussion with patient and his brother and no recommendations for catheterization now. We'll continue with medical management. On beta tamir. No ACEI/ARB d/t GERRY. On Lasix per Nephrology. Qualifiers: Cardiomyopathy type: unspecified Qualified Code(s): I42.9 - Cardiomyopathy , unspecified (3) CAD (coronary artery disease) Current Visit: Yes Status: Chronic Per Cardiology: Hx of 2 vessel CABG and valve replacement in 2010 at a [facility], possibly [facility]. No LHC now. On asa for now, may need to stop, on BB and statin. CP free. Qualifiers: Coronary Disease-Associated Artery/Lesion type: [place] artery [place] vs. transplanted heart: [place] heart Associated angina: without angina Qualified Code(s): I25.10 - Atherosclerotic heart disease of [place] coronary artery without angina pectoris (4) PAD (peripheral artery disease) Current Visit: Yes Status: Acute Per Cardiology: Management per vascular surgery. No pulses noted (not new). Patient does not desire to proceed with surgery for amputation at this juncture. (5) GERRY (acute kidney injury) Current Visit: Yes Status: Acute Per Cardiology: Nephrology following. Dijcing. Net I&O now 485ml. Discussion w patient/family: The assessment and plan as outlined above was discussed with the patient who expressed understanding and agreement. All questions were answered. Thank you for involving us in the care of your patient. Please call with any questions. Seen with SW. Patient and brother exploring palliative care. Subjective Principal diagnosis: A-Fib RVR, CHF, CMP Interval history: Patient reports short of breath has improved during hospital stay. He denies any chest pain or palpitations currently. Seen again this pm with Brother Ruperto at bedside with SW. Objective Vital Signs, Last 4 Hours Temp Pulse Resp BP Pulse Ox 08/27/17 07:22 98 F 124 16 105/69 100 08/27/17 05:00 98.8 F 121 18 96/61 100 General: Conversant Cardiac: No Murmur, Other (irregularly irregular) Lungs: Other (diminished bilaterally) Neuro: Alert and responsive, No focal deficits noted Abdomen: Soft Skin: Other (pale) Results 08/27/17 06:26 08/27/17 06:26 Lab Results Laboratory Tests 08/23/17 08/23/17 08/24/17 08:12 08:12 02:58 Hgb 12.5 L 12.1 L Hct 41.1 38.5 Plt Count 111 L Creatinine 1.54 H Est GFR (Non-Af Amer) 44 L Albumin Stool Occult Blood 08/25/17 08/26/17 08/26/17 01:05 00:34 17:15 Hgb 11.7 L 10.0 L D Hct 37.6 32.0 L Plt Count Creatinine Est GFR (Non-Af Amer) Albumin Stool Occult Blood Positive A 08/27/17 08/27/17 08/27/17 05:03 06:26 06:26 Hgb 5.6 L* D Hct 17.6 L Plt Count 89 L Creatinine 1.69 H Est GFR (Non-Af Amer) 40 L Albumin 2.0 L Stool Occult Blood Impressions Chest X-Ray 08/27/17 07:00 IMPRESSION: 1. Findings consistent with acute congestive heart failure with bilateral moderate-large pleural effusions. 2. Bilateral lower lobe/lung base atelectasis. D/ / 08/27/2017 10:33:23 Ike Stanley MD / ct Interpreting Provider: Ike Stanley MD Intake & Output 08/24/17 08/25/17 08/26/17 08/27/17 23:59 23:59 23:59 23:59 Intake Total 1480 / 1480 4285 / 4285 970 / 970 310 / 310 Output Total 250 / 250 1400 / 1400 1700 / 1700 4150 / 4150 Balance 1230 / 1230 2885 / 2885 -730 / -730 -3840 / -3840 Weight 89.3 kg 92.8 kg 91.7 kg 90.5 kg Active Medications Acetaminophen (Tylenol) 650 mg PO Q6HR PRN PRN Reason: Mild Pain (1-3) Stop: 02/22/18 03:31 Last Admin: 08/26/17 08:40 Dose: 650 mg Aspirin (Aspirin Ec) 81 mg PO DAILY [facility] Stop: 02/22/18 09:01 Last Admin: 08/27/17 08:29 Dose: 81 mg Atorvastatin Calcium (Lipitor) 40 mg PO HS [facility] Stop: 02/23/18 21:01 Last Admin: 08/26/17 23:32 Dose: 40 mg Cephalexin HCl (Keflex) 250 mg PO TID [facility] Stop: 02/25/18 15:01 Last Admin: 08/27/17 08:29 Dose: 250 mg Dextrose/Water (Dextrose 50% (Syg)) 25 ml IVP AD PRN PRN Reason: Hypoglycemia Stop: 02/22/18 09:29 Doxycycline Hyclate (Doxycycline) 100 mg PO BID [facility] Stop: 02/25/18 21:01 Last Admin: 08/27/17 08:29 Dose: 100 mg Furosemide (Lasix) 40 mg IVP Q12H [facility] Stop: 02/25/18 11:01 Last Admin: 08/26/17 23:34 Dose: 40 mg Glucagon (Glucagen) 1 mg IM ONCE PRN PRN Reason: Hypoglycemia Stop: 02/22/18 09:29 Glucose (Gluctose) 15 gm PO ONCE PRN PRN Reason: Hypoglycemia Stop: 02/22/18 09:29 Glucose (Gluctose) 30 gm PO ONCE PRN PRN Reason: Hypoglycemia Stop: 02/22/18 09:29 Dextrose (Dextrose 5%) 1,000 mls @ 100 mls/hr IVC .Q10H PRN PRN Reason: HYPOGLYCEMIA Stop: 02/22/18 09:29 Albumin Human (Flexbumin) 25 gm in 100 mls @ 60 mls/hr IVPB Q12H [facility] Stop: 02/25/18 11:01 Last Admin: 08/27/17 12:57 Dose: 60 mls/hr Insulin Human Lispro (Humalog) 0 units SQ HS [facility] PRN Reason: Protocol Stop: 02/23/18 21:01 Last Admin: 08/26/17 23:33 Dose: 6 units Insulin Human Lispro (Humalog) 0 units SQ TIDAC [facility] PRN Reason: Protocol Stop: 02/23/18 11:31 Last Admin: 08/27/17 12:57 Dose: 6 units Metoprolol Succinate (Toprol Xl) 150 mg PO DAILY [facility] Stop: 02/25/18 09:01 Last Admin: 08/27/17 08:30 Dose: 150 mg Naloxone HCl (Narcan) 0.4 mg IVP Q2MIN PRN PRN Reason: Opioid Reversal Stop: 02/22/18 03:31 Pantoprazole Sodium (Protonix) 40 mg IVP Q12HR [facility] Stop: 02/26/18 09:40 Last Admin: 08/27/17 12:55 Dose: 40 mg - Imaging and Cardiology Chest Xray: report reviewed - EKG Interpretation EKG results cardiology: other (afib 100's - 110's currently, avg HR 94 past 12 hrs) Consult Discharge Plan - Plan Referrals: NONE,PCP [Primary Care Provider] -
[2017-08-27] MEDS: Doxycycline 100 MG CAPSULE PO SCH ×2 (08:29→21:03)
[2017-08-27] MEDS: Aspirin Enteric Coated 81 MG Tablet PO SCH (08:29)
[2017-08-27] MEDS: cephALEXin 250 MG CAPSULE PO SCH ×3 (08:29→21:03)
[2017-08-27] MEDS: *HR* Acetylcysteine 20% 600 MG/3 ML ORAL SYRINGE PO SCH ×2 (08:30)
[2017-08-27] MEDS: Metoprolol XL (24 HR) Succ 50 MG TAB.ER.24H PO SCH (08:30)
[2017-08-27] MEDS: Insulin LISPRO 300 UNITS/3 ML VIAL SQ SCH ×3 (08:32→21:03)
[2017-08-27] MEDS ORDERED: 0.9 % Sodium Chloride 250 ML ONE ×2 (08:34→15:57)
--- NOTE | 2017-08-27 09:42 | Nephrology Progress Note ---
Date of Encounter: 08/27/17 Time of Encounter: 09:39 - Assessment and Plan (1) GERRY (acute kidney injury) Current Visit: Yes Status: Acute SCr slightly improved today. GERRY likely multifactorial in the setting of her hydronephrosis with underlying severe cardiomyopathy and atrial fibrillation. Patient has had excellent urine output with the albumin and Lasix, 3450 mL of urine output documented since midnight. Continue Vera for now, when the Vera was removed patient will need to be monitored for signs of urinary retention and if urine retention worsens would recommend consult to urology. Continue with albumin and Lasix as blood pressure allows, patient will be receiving a large amount of fluid with blood transfusions. Chest x-ray reveals moderate to large bilateral pleural effusions, even with diuresis these may not resolve. Patient may benefit from thoracentesis to remove this fluid. Currently no indications for renal replacement therapy at this time. Continue renal protective strategy by avoiding nephrotoxins including NSAIDs, dozing medications based on renal functions. Would continue to recommend avoiding IV contrast exposure from left heart catheterization until renal function improves. We will continue to follow. (2) Anemia Current Visit: Yes Status: Acute Likely related to acute blood loss, concern for GI bleed. Hemoglobin has dropped from 10.0 to 5.6 and 24hr period. Patient also has a rising BUN while serum creatinine is improving possibly indicative of a GI bleed. Patient is also noted to have Hemoccult-positive stool. Given the patient's multiple underlying comorbidities the patient would be high risk for endoscopic procedure. Further management per primary service. Qualifiers: Anemia type: unspecified type Qualified Code(s): D64.9 - Anemia, unspecified (3) Atrial fibrillation with RVR Current Visit: Yes Status: Acute As per primary/cardio (4) Cardiomyopathy Current Visit: Yes Status: Acute As per primary/cardio Qualifiers: Cardiomyopathy type: unspecified Qualified Code(s): I42.9 - Cardiomyopathy , unspecified (5) DM2 (diabetes mellitus, type 2) Current Visit: Yes Status: Chronic As per primary/cardio Qualifiers: Diabetes mellitus complication status: without complication Diabetes mellitus oysterman insulin use: without oysterman use Qualified Code(s): E11.9 - Type 2 diabetes mellitus without complications (6) Hypertension Current Visit: Yes Status: Chronic Blood pressure stable, improved with albumin and Lasix. Avoid LIDIA inhibitor or ARB in the setting of GERRY. Qualifiers: Hypertension type: essential hypertension Qualified Code(s): I10 - Essential (primary) hypertension (7) PAD (peripheral artery disease) Current Visit: Yes Status: Acute Likely inducing dry gangrene. (8) Pleural effusion Current Visit: Yes Status: Acute Likely related to underlying severe cardiomyopathy. 2 view chest x-ray is pending. (9) Ascites Current Visit: Yes Status: Acute As per primary Qualifiers: Ascites type: other type Qualified Code(s): R18.8 - Other ascites (10) Hydronephrosis, right Current Visit: Yes Status: Acute See above. (11) Left renal atrophy Current Visit: Yes Status: Acute Likely chronic. Would recommend renal Doppler ultrasound some point but given that his blood pressures are stable it is not an urgent issue Subjective Principal diagnosis: A-Fib RVR, CHF, CMP Interval history: Patient seen and examined at bedside. He reports mild abdominal pain that is diffuse in nature. He denies new chest pain, nausea, vomiting, diarrhea. He also reports mild chronic pain in his lower extremity is bilaterally. He states he is taking in fluid but his appetite is poor. Objective - Vital Signs Vital signs: Vital Signs Temp Pulse Resp BP Pulse Ox 08/27/17 07:22 98 F 124 16 105/69 100 08/27/17 05:00 98.8 F 121 18 96/61 100 08/27/17 00:22 100 08/26/17 20:00 99 F 101 18 119/74 100 08/26/17 16:28 97.8 F 81 14 155/74 97 08/26/17 16:15 97.8 F 97 15 111/71 100 08/26/17 11:50 97.8 F 88 14 105/64 98 Intake and Output 08/26/17 08/27/17 08/27/17 23:59 07:59 15:59 Intake Total 210 / 210 Output Total 700 / 700 3450 / 3450 Balance -700 / -700 -3240 / -3240 Intake: IV Fluids 90 / 90 Heparin 25,000 UNIT/500 ML D5W 90 / 90 25,000 unit In 500 ml @ 14 UNIT /KG/HR 25.004 mls/hr IVC .Q20H KAYLEE Rx#:[id number] Oral 120 / 120 Output: Catheter 700 / 700 3450 / 3450 Other: Stool Size Copious Stool Consistency liquid Stool Color Blood Tinged Black # Bowel Movement Diapers 2 1 Weight 90.5 kg Blood Glucose* 353 150 Patient Weight 08/27/17 23:59 Weight 90.5 kg - General Appearance General appearance: Present: chronically ill EENT: Present: ATNC, PERRL, mucous membranes moist Respiratory: Present: course breath sounds Cardiology: Present: edema (1+ lower extremities bilaterally), irregular rhythm (with tachycardia) Gastrointestinal: Present: normoactive bowel sounds, no tenderness, distended ( mild) Additional Comments: fluid wave present Integumentary: Present: cool/clammy (lower extremities bilaterally), erythema, ecchymotic, hyperpigmentation, chronic venous stasis Additional Comments: Bilateral necrotic ulcerations. wounds appear dry Neurologic: Present: no focal deficit, alert and oriented x3 - Lab 08/27/17 06:26 08/27/17 06:26 Most recent lab results Calcium 7.9 mg/dL (8.6-10.8) L 08/27/17 06:26 Phosphorus 3.4 mg/dL (2.3-4.7) 08/27/17 05:03 Magnesium 1.5 mg/dL (1.6-2.6) L 08/27/17 05:03 Urine Creatinine 32 mg/dL 08/26/17 04:00 Urine Total Protein 11 mg/dL (1-14) 08/26/17 04:00 Consult Discharge Plan - Plan Referrals: NONE,PCP [Primary Care Provider] -
--- NOTE | 2017-08-27 12:03 | Palliative Progress Note ---
Date of Encounter: 08/27/17 Time of Encounter: 10:00 - Assessment and plan (1) PAD (peripheral artery disease) Current Visit: Yes Status: Acute Assessment and plan: Awaiting improvement in kidney function to allow for an angiogram. Patient may require an amputation, vascular surgery is following. (2) CAD (coronary artery disease) Current Visit: Yes Status: Chronic Assessment and plan: Awaiting heart catheter probably on Sunday depending on the patient's knee function. The patient is interested in moving forward with this if this is offered to him. Qualifiers: Coronary Disease-Associated Artery/Lesion type: [place] artery [place] vs. transplanted heart: [place] heart Associated angina: without angina Qualified Code(s): I25.10 - Atherosclerotic heart disease of [place] coronary artery without angina pectoris (3) Cardiomyopathy Current Visit: Yes Status: Acute Assessment and plan: Ejection fraction between 15 and 20% by echocardiogram done earlier this hospitalization. Patient is awaiting cardiac catheterization to know the etiology. Cardiac catheter is on hold at this time due to patient's kidney function, however this does appear to be stable if not may be slightly improved. Patient is interested availing himself of left heart catheter if this is offered. Qualifiers: Cardiomyopathy type: unspecified Qualified Code(s): I42.9 - Cardiomyopathy , unspecified (4) Counseling regarding advanced care planning and goals of care Current Visit: Yes Status: Acute Assessment and plan: The patient is already DNR CCA DNI Ammann he would like to return home with his brother Ruperto. Hoping at some point even with an amputation that he might be fitted with prosthetic limbs that would allow him to get up and get around to some degree. Ejection fraction of 15% this does not seem very likely, however this is his goal. He was able to do this as of one month ago. We are awaiting workup from cardiology to see what else they might be to offer him. Still has a GI bleeding going at this time and he is interested in having this explored if that is at all possible. Talked extensively with the hospitalist who does not feel there is anything left to be offered to this patient. We are awaiting the subspecialist to arrive at the same conclusion and then have further discussions with the patient. (5) Bilateral cellulitis of lower leg Current Visit: Yes Status: Acute - Time Spent With Patient Total time spent is greater than 50% in coordination of care (as documented) at patient's floor/unit and/or counseling patient: - Subjective Interval history: The patient does complain of some pain in his legs, but states the medications are currently effective and does not wish to have anything changed, rations understanding is that he has bad circulation in his legs may require an amputation of them. He also understands he has a bad heart, also understands his bowels or bleeding currently. He is however interested in having treatment for these to the degree that he can. He has very little appetite. - Constitutional Vitals: Abnormal lab results RBC 2.39 M/mcL (4.19-5.50) L 08/27/17 06:26 Hgb 5.6 g/dL (12.9-16.9) L* D 08/27/17 06:26 Hct 17.6 % (37.5-50.1) L 08/27/17 06:26 MCV 73.6 fL (83.0-100.0) L 08/27/17 06:26 MCH 23.4 pg (28.0-33.3) L 08/27/17 06:26 RDW 22.2 % (11.5-14.5) H 08/27/17 06:26 Plt Count 89 K/mcL (140-400) L 08/27/17 06:26 Neutrophils # 9.7 K/mcL (1.6-8.9) H 08/27/17 06:26 Lymphocytes # 0.5 K/mcL (0.6-4.6) L 08/27/17 06:26 Platelet Estimate Decreased (Normal) L 08/26/17 00:34 Large Platelets Present (Not Present) A 08/24/17 02:58 Immature Plt Fraction 8.5 % (1.1-6.1) H 08/27/17 06:26 Hypochromasia Present (Not Present) A 08/26/17 00:34 Poikilocytosis 1+ (Not Present) A 08/25/17 01:05 Anisocytosis 1+ (Not Present) A 08/25/17 01:05 Microcytosis Present (Not Present) A 08/24/17 02:58 Target Cells 1+ (Not Present) A 08/24/17 02:58 Tear Drop Cells 1+ (Not Present) A 08/24/17 02:58 Ovalocytes 1+ (Not Present) A 08/24/17 02:58 [place] Cells 2+ (Not Present) A 08/26/17 00:34 Acanthocytes (Spur) 3+ (Not Present) A 08/24/17 02:58 Schistocytes 1+ (Not Present) A 08/23/17 08:12 PT 18.9 Seconds (9.4-12.1) H 08/23/17 08:12 APTT 76.3 Seconds (26.0-36.0) H 08/26/17 15:10 BUN 85 mg/dL (8-26) H D 08/27/17 06:26 Creatinine 1.69 mg/dL (0.72-1.25) H 08/27/17 06:26 Est GFR ( Amer) 48 (> 60) L 08/27/17 06:26 Est GFR (Non-Af Amer) 40 (> 60) L 08/27/17 06:26 BUN/Creatinine Ratio 50 (6-26) H 08/27/17 06:26 Glucose 135 mg/dL (70-99) H 08/27/17 06:26 POC Glucose 157 (58-89) H 08/26/17 16:18 Calculated Osmolality 314 (280-300) H 08/27/17 06:26 Calcium 7.9 mg/dL (8.6-10.8) L 08/27/17 06:26 Magnesium 1.5 mg/dL (1.6-2.6) L 08/27/17 05:03 B-Natriuretic Peptide 2635 pg/mL (0-100) H 08/27/17 05:03 Total Protein (PEP) 5.60 g/dL (6.00-8.30) L 08/24/17 02:58 Albumin 2.0 g/dL (3.5-5.0) L 08/27/17 05:03 Albumin (PEP) 2.63 g/dL (3.75-5.01) L 08/24/17 02:58 Eonvb-8-Tmapvbniu 0.51 g/dL (0.19-0.46) H 08/24/17 02:58 Urine Clarity Cloudy (Clear) A 08/25/17 18:30 Urine Protein 30 mg/dL (Neg-Trace) H 08/25/17 18:30 Urine Blood Large (Negative) H 08/25/17 18:30 Urine Microscopic RBC 50-100 per hpf (0-3) H 08/25/17 18:30 Ur Squamous Epith Cells Moderate per lpf (None-Few) H 08/25/17 18:30 Microalb/Creat Ratio 159 (0-30) H 08/26/17 04:00 Protein/Creatinin Ratio 0.34 mg/mg (0-0.20) H 08/26/17 04:00 Stool Occult Blood Positive (Negative) A 08/26/17 17:15 General appearance: Present: no acute distress - Head Head exam: Present: atraumatic, normal inspection - Eye Eye exam: Present: normal appearance - ENT ENT exam: Present: mucous membranes moist - Respiratory Respiratory exam: Present: decreased breath sounds - Cardiovascular Cardiovascular exam: Present: irregular rhythm, tachycardia - GI/Abdominal GI/Abdominal exam: Present: normal bowel sounds, soft. Absent: tenderness - Extremities Exam Extremities exam: Present: pedal edema, tenderness. Absent: normal inspection - Neurological Exam Neurological exam: Present: alert, oriented X3 - Psychiatric Psychiatric exam: Absent: agitated, anxious - Skin Skin exam: Present: dry, warm Palliative Quality Palliative Quality: Screen for Code Status: Yes, Screen for Goals of Care: Yes, Screen for Pain: Yes, If Pain Regimen Started, Initiate Bowel Regimen: NA, Screen for Nausea/Vomitting: Yes Code Status: 08/23/17 03:30 Resuscitation Status: Active [RES] Routine Comment: Resuscitation Status: Full Code 08/26/17 13:39 DNR [Resuscitation Status: Active] [RES] Routine Comment: Resuscitation Status: [id number] - Labs CBC & Chem 7: 08/27/17 06:26 08/27/17 06:26 Labs: Laboratory Results - last 24 hr 08/24/17 08/25/17 08/25/17 02:58 16:24 19:39 WBC RBC Hgb Hct MCV MCH MCHC RDW Plt Count MPV Immature Gran % Seg Neutrophils % Lymphocytes % Monocytes % Eosinophils % Basophils % Neutrophils # Lymphocytes # Monocytes # Eosinophils # Basophils # Immature Plt Fraction APTT Sodium Potassium Chloride Carbon Dioxide BUN Creatinine Est GFR ( Amer) Est GFR (Non-Af Amer) BUN/Creatinine Ratio Glucose POC Glucose 118 H 121 H Calculated Osmolality Calcium Phosphorus Magnesium B-Natriuretic Peptide Prot Electrophor EER SEE NOTE Total Protein (PEP) 5.60 L Albumin Albumin (PEP) 2.63 L Gyyka-3-Cxqgirweo 0.51 H Iowsy-3-Ifnxvilsx 0.76 Beta Globulins 0.86 Gamma Globulins 0.85 PEP Interpretation SEE NOTE Serum Immunofix Reflex NOT DONE Stool Occult Blood IgG TNP IgA TNP IgM TNP Specimen Rejected Blood Type Antibody Screen Crossmatch 08/26/17 08/26/17 08/26/17 07:40 11:48 15:10 WBC RBC Hgb Hct MCV MCH MCHC RDW Plt Count MPV Immature Gran % Seg Neutrophils % Lymphocytes % Monocytes % Eosinophils % Basophils % Neutrophils # Lymphocytes # Monocytes # Eosinophils # Basophils # Immature Plt Fraction APTT 76.3 H Sodium Potassium Chloride Carbon Dioxide BUN Creatinine Est GFR ( Amer) Est GFR (Non-Af Amer) BUN/Creatinine Ratio Glucose POC Glucose 165 H 187 H Calculated Osmolality Calcium Phosphorus Magnesium B-Natriuretic Peptide Prot Electrophor EER Total Protein (PEP) Albumin Albumin (PEP) Qnbnd-9-Ylwchgtcb Mhjpg-3-Hnmpwqbuy Beta Globulins Gamma Globulins PEP Interpretation Serum Immunofix Reflex Stool Occult Blood IgG IgA IgM Specimen Rejected Blood Type Antibody Screen Crossmatch 08/26/17 08/26/17 08/27/17 16:18 17:15 05:03 WBC RBC Hgb Hct MCV MCH MCHC RDW Plt Count MPV Immature Gran % Seg Neutrophils % Lymphocytes % Monocytes % Eosinophils % Basophils % Neutrophils # Lymphocytes # Monocytes # Eosinophils # Basophils # Immature Plt Fraction APTT Sodium Potassium Chloride Carbon Dioxide BUN Creatinine Est GFR ( Amer) Est GFR (Non-Af Amer) BUN/Creatinine Ratio Glucose POC Glucose 157 H Calculated Osmolality Calcium Phosphorus 3.4 Magnesium 1.5 L B-Natriuretic Peptide Prot Electrophor EER Total Protein (PEP) Albumin 2.0 L Albumin (PEP) Hlmir-1-Mtvkgjaec Qxrqd-0-Takkdrnhw Beta Globulins Gamma Globulins PEP Interpretation Serum Immunofix Reflex Stool Occult Blood Positive A IgG IgA IgM Specimen Rejected Blood Type Antibody Screen Crossmatch 08/27/17 08/27/17 08/27/17 05:03 05:03 06:26 WBC 10.7 RBC 2.39 L Hgb 5.6 L* D Hct 17.6 L MCV 73.6 L MCH 23.4 L MCHC 31.8 RDW 22.2 H Plt Count 89 L MPV TNP Immature Gran % 0.6 Seg Neutrophils % 90.8 Lymphocytes % 5.0 Monocytes % 3.1 Eosinophils % 0.4 Basophils % 0.1 Neutrophils # 9.7 H Lymphocytes # 0.5 L Monocytes # 0.3 Eosinophils # 0.0 Basophils # 0.0 Immature Plt Fraction 8.5 H APTT Sodium Potassium Chloride Carbon Dioxide BUN Creatinine Est GFR ( Amer) Est GFR (Non-Af Amer) BUN/Creatinine Ratio Glucose POC Glucose Calculated Osmolality Calcium Phosphorus Magnesium B-Natriuretic Peptide 2635 H Prot Electrophor EER Total Protein (PEP) Albumin Albumin (PEP) Weqap-8-Ylfqdofig Zvgfb-6-Lpoisvaqw Beta Globulins Gamma Globulins PEP Interpretation Serum Immunofix Reflex Stool Occult Blood IgG IgA IgM Specimen Rejected Miscellaneous Blood Type Antibody Screen Crossmatch 08/27/17 08/27/17 06:26 07:27 WBC RBC Hgb Hct MCV MCH MCHC RDW Plt Count MPV Immature Gran % Seg Neutrophils % Lymphocytes % Monocytes % Eosinophils % Basophils % Neutrophils # Lymphocytes # Monocytes # Eosinophils # Basophils # Immature Plt Fraction APTT Sodium 138 Potassium 3.8 Chloride 107 Carbon Dioxide 21 BUN 85 H D Creatinine 1.69 H Est GFR ( Amer) 48 L Est GFR (Non-Af Amer) 40 L BUN/Creatinine Ratio 50 H Glucose 135 H POC Glucose Calculated Osmolality 314 H Calcium 7.9 L Phosphorus Magnesium B-Natriuretic Peptide Prot Electrophor EER Total Protein (PEP) Albumin Albumin (PEP) Ewzcx-4-Mfglahwpx Rsmvq-9-Jvvslftap Beta Globulins Gamma Globulins PEP Interpretation Serum Immunofix Reflex Stool Occult Blood IgG IgA IgM Specimen Rejected Blood Type O POSITIVE Antibody Screen NEGATIVE Crossmatch See Detail - Impressions Impressions Chest X-Ray 08/27/17 07:00 IMPRESSION: 1. Findings consistent with acute congestive heart failure with bilateral moderate-large pleural effusions. 2. Bilateral lower lobe/lung base atelectasis. D/ / 08/27/2017 10:33:23 Ike Stanley MD / ct Interpreting Provider: Ike Stanley MD - ABG Interpretation ABG results: PT/INR, D-dimer PT 18.9 Seconds (9.4-12.1) H 08/23/17 08:12 Consult Discharge Plan - Plan Referrals: NONE,PCP [Primary Care Provider] -
[2017-08-27] MEDS: Pantoprazole 40 MG VIAL IVP SCH ×2 (12:55→21:03)
[2017-08-27] MEDS: Albumin 25% 25gram/100mL 25 GM/100 ML IV.SOLN IVPB SCH ×2 (12:57→23:29)
--- NOTE | 2017-08-27 14:21 | Event Note ---
Date of Encounter: 08/27/17 Time of Encounter: 14:15 - Cardiology Event Note Discussed with Dr. White, continue with medical management. No catheterization now with acute GI bleed. DNR/CCA/DNI. On lasix, BB, statin, and asa for now-- monitor if able to tolerate. Afib slightly worsened rate control, suspect with improve with transfusion. Patient and brother discussing palliative care. Continue with medical management. May consider addition of amio if needed. Will s/o, all questions answered. Re-consult PRN. Discussed with primary service.
[2017-08-27] MEDS: Furosemide 40 MG/4 ML VIAL IVP SCH (14:34)
--- NOTE | 2017-08-27 15:27 | Vascular/[facility] Progress Note ---
Date of Encounter: 08/27/17 Time of Encounter: 14:00 - Assessment and plan (1) PAD (peripheral artery disease) Current Visit: Yes Status: Acute The patient's lower extremity status has deteriorated from Sunday. The wounds are more necrotic and the legs appear to be more ischemic. He has further complications now as he has new anemia requiring blood transfusions. This makes him an unlikely candidate for bilateral lower extremity amputations and I suggested to him that he consider hospice care. I will sign off the case for now but will remain available as requested. Please do not hesitate to call if you have any questions or concerns. (2) GERRY (acute kidney injury) Current Visit: Yes Status: Acute Patient has acute kidney injury from a host of sources. IV contrast or intra- arterial contrast cannot be administered in his present state. Would recommend renal consultation to stabilize and improve this and also to follow the patient after contrast exposure if he can be improved to allow that study to be performed. - Subjective Interval history: Mr. Smith has no complaints on his visit with me today that are new or different from when I seen him last on Sunday afternoon. He has developed a new problem of significant anemia. His hemoglobin dropped to approximate 5.5 g. He is receiving blood transfusions today. When I last discussed his clinical status on Sunday I had reviewed with him the possibility of palliative care and that surgical intervention would not necessarily need to be performed. He remains noncommittal with me today and and has very little spontaneous speech or comments with me. Vital Signs, Last 4 Hours Temp Pulse Resp BP 08/27/17 14:32 97.7 F 119 16 102/70 08/27/17 11:44 98.7 F 109 16 108/81 08/27/17 11:28 97.4 F L 111 16 95/69 - Physical Examination General: Present: Other (Patient appears cachectic and older than his stated age ) HEENT: Present: Normocephaly, Other (Muscle wasting of the face and neck) Vascular: Present: Pulse, absent, Edema (Patient has bilateral pedal edema and lower calf edema), Color/Temperature (Feet are cool to the touch), Other Results 08/27/17 06:26 08/27/17 06:26 Lab Results, Last 24 hours 08/26/17 08/27/17 08/27/17 15:10 05:03 05:03 WBC Hgb Hct Plt Count APTT 76.3 H Sodium Potassium Chloride Carbon Dioxide BUN Creatinine Glucose Calcium Magnesium 1.5 L B-Natriuretic Peptide 2635 H 08/27/17 08/27/17 06:26 06:26 WBC 10.7 Hgb 5.6 L* D Hct 17.6 L Plt Count 89 L APTT Sodium 138 Potassium 3.8 Chloride 107 Carbon Dioxide 21 BUN 85 H D Creatinine 1.69 H Glucose 135 H Calcium 7.9 L Magnesium B-Natriuretic Peptide Consult Discharge Plan - Plan Referrals: NONE,PCP [Primary Care Provider] -
--- NOTE | 2017-08-27 16:27 | Internal Med Progress Note ---
Date of Encounter: 08/27/17 Time of Encounter: 11:00 - Assessment and plan (1) Anemia Current Visit: Yes Status: Acute Assessment and plan: Hemoglobin 5.6 today. Likely due to GI bleed. Heparin has been stopped. Start PPI IV. Transfuse 2 units packed red blood cells stat. GI has been consulted. Patient wishes to continue interventions as needed. His CODE STATUS was changed to DNR arrest DNI yesterday. Palliative care following. Poor prognosis overall. High risk for complications at this time. Qualifiers: Anemia type: other cause Other causes of anemia: acute posthemorrhagic Qualified Code(s): D62 - Acute posthemorrhagic anemia (2) Severe anemia Current Visit: Yes Status: Acute (3) Bilateral cellulitis of lower leg Current Visit: Yes Status: Acute Assessment and plan: Continue cephalexin and doxycycline. No drainage from necrotic lesions on both lower extremities. WBC count is normal today. (4) Congestive heart failure Current Visit: Yes Status: Acute Assessment and plan: Continue Lasix. Renal function did improve compared to yesterday although BUN is elevated likely due to GI bleed. Patient has had -3-1/2 L fluid balance since yesterday. Qualifiers: Congestive heart failure type: systolic Congestive heart failure chronicity : acute on chronic Qualified Code(s): I50.23 - Acute on chronic systolic ( congestive) heart failure (5) GERRY (acute kidney injury) Current Visit: Yes Status: Acute Assessment and plan: Improving. Creatinine 1.69 today. (6) Ascites Current Visit: Yes Status: Acute Assessment and plan: Likely due to hypoalbuminemia. Plan to do paracentesis when patient is clinically improved Qualifiers: Ascites type: other type Qualified Code(s): R18.8 - Other ascites (7) CAD (coronary artery disease) Current Visit: Yes Status: Chronic Assessment and plan: With the cardiomyopathy. Cardiology has recommended against cardiac catheterization at this time given patient's GI bleed and severe anemia. I agree with this decision. We will continue medical management. Continue aspirin at low dose for now while we monitor her blood counts closely. Qualifiers: Coronary Disease-Associated Artery/Lesion type: [place] artery [place] vs. transplanted heart: [place] heart Associated angina: without angina Qualified Code(s): I25.10 - Atherosclerotic heart disease of [place] coronary artery without angina pectoris (8) Cardiomyopathy Current Visit: Yes Status: Acute Assessment and plan: Likely ischemic. Continue management with beta tamir, Lasix and aspirin. Qualifiers: Cardiomyopathy type: unspecified Qualified Code(s): I42.9 - Cardiomyopathy , unspecified (9) DM2 (diabetes mellitus, type 2) Current Visit: Yes Status: Chronic Assessment and plan: Plan he will continue sliding scale coverage. Although patient is having intermittently elevated blood sugars, will not change his regimen due to his dietary intake being inconsistent. Qualifiers: Diabetes mellitus complication status: without complication Diabetes mellitus long-term insulin use: without long-term use Qualified Code(s): E11.9 - Type 2 diabetes mellitus without complications (10) Hypertension Current Visit: Yes Status: Chronic Assessment and plan: Well-controlled Qualifiers: Hypertension type: essential hypertension Qualified Code(s): I10 - Essential (primary) hypertension (11) PAD (peripheral artery disease) Current Visit: Yes Status: Acute Assessment and plan: Discussed with vascular surgery. Poor prognosis. Patient does appear to have progression of his lower extremity ischemia and at this time hopes of revascularization have pretty much subsided. They recommend doing an amputation if and when patient is able to tolerate it. (12) Pleural effusion Current Visit: Yes Status: Acute Assessment and plan: Thoracentesis can be done when patient is able to tolerate procedure. But most likely his effusion is due to hypoalbuminemia and CHF. Continue Lasix. (13) Atrial fibrillation with RVR Current Visit: Yes Status: Acute Assessment and plan: Cardizem has been stopped. Patient is on 150 mg Toprol-XL. Heart rate varying between 100 and 120. We will continue to monitor. - Subjective Interval history: Patient with history of hypertension, diabetes, hospitalized here initially for nonhealing ulcers in his legs bilaterally. He was initially diagnosed with bilateral lower extremity cellulitis, peripheral arterial disease and was also having new onset atrial fibrillation with RVR, acute kidney injury. He was placed on Cardizem drip. He was also diagnosed with acute congestive heart failure as he had an elevated BNP. However Lasix was not given due to his acute kidney injury. Cardiology and vascular surgery were consulted. Patient had a 2-D echocardiogram which showed EF of 15-20%. Lower extremity arterial study showed critical disease bilaterally. Patient had necrotic lesions on the plantar surfaces of toes of both lower extremities. Cardiology recommended Cardiac catheterization and vascular surgery agreed that he needed to have his coronaries evaluated prior to any procedure for his lower extremity. However given his poor renal function, he was medically managed while his renal function was optimized. Patient did not respond well to treatment and so he was given albumin and Lasix beginning yesterday. His renal function appears to be improving. However he did develop black stools yesterday . He continues to feel weak and tired. Does have bilateral lower extremity pain. Denies any chest pain at this time. No shortness of breath. - Constitutional Vitals: Temp Pulse Resp BP Pulse Ox 97.3 F L 102 16 114/80 98 08/27/17 15:45 08/27/17 15:45 08/27/17 15:45 08/27/17 15:45 08/27/17 15:45 General appearance: Present: cooperative, mild distress, A&O X 3, pleasant, answers questions appropriately - Respiratory Respiratory exam: Present: CTAB. Absent: accessory muscle use, rales, rhonchi, wheezes - Cardiovascular Cardiovascular exam: Present: irregular rhythm, +S1, +S2, tachycardia. Absent: diastolic murmur, gallop, rubs, systolic murmur - GI/Abdominal GI/Abdominal exam: Present: normal bowel sounds, soft, no peritoneal signs. Absent: distended, tenderness - Extremities Exam Extremities exam: Present: radial pulses palpable and symmetrical. Absent: calf tenderness, cyanotic, pedal edema Additional comments: Lower extremities are cold to touch. Plantar surfaces of dose of both lower extremities have necrotic lesions. Poor pedal pulses. - Neurological Exam Neurological exam: Present: alert, CN II-XII intact, oriented X3, no focal deficits. Absent: facial droop, speech deficit - Psychiatric Psychiatric exam: Present: flat affect - Skin Skin exam: Present: dry, intact Internal Medicine: Result - Labs CBC & Chem 7: 08/27/17 06:26 08/27/17 06:26 Labs: Short CBC 08/27/17 Range/Units 06:26 WBC 10.7 (4.3-11.1) K/mcL Hgb 5.6 L* D (12.9-16.9) g/dL Hct 17.6 L (37.5-50.1) % Plt Count 89 L (140-400) K/mcL Neutrophils # 9.7 H (1.6-8.9) K/mcL BMP 08/27/17 06:26 Sodium 138 Potassium 3.8 Chloride 107 Carbon Dioxide 21 BUN 85 H D Creatinine 1.69 H Glucose 135 H Calcium 7.9 L Liver Function 08/27/17 Range/Units 05:03 Albumin 2.0 L (3.5-5.0) g/dL - ABG Interpretation ABG results: PT/INR, D-dimer PT 18.9 Seconds (9.4-12.1) H 08/23/17 08:12 - Impressions Impressions Chest X-Ray 08/27/17 07:00 IMPRESSION: 1. Findings consistent with acute congestive heart failure with bilateral moderate-large pleural effusions. 2. Bilateral lower lobe/lung base atelectasis. D/ / 08/27/2017 10:33:23 Ike Stanley MD / ct Interpreting Provider: Ike Stanley MD Consult Discharge Plan - Plan Referrals: NONE,PCP [Primary Care Provider] -
[2017-08-27 21:05] LABS: Hematocrit 23.2 % (37.5-50.1); Hemoglobin 7.6 g/dL (12.9-16.9)
[2017-08-28] MEDS: Furosemide 40 MG/4 ML VIAL IVP SCH ×2 (01:52→12:17)
[2017-08-28] MEDS ORDERED: *HR* OxyCODONE Immed Rel 5 MG TABLET PO ONE (02:15)
[2017-08-28 02:48] LABS: Hematocrit 22.3 % (37.5-50.1); Hemoglobin 7.2 g/dL (12.9-16.9); Hemoglobin 7.3 g/dL (12.9-16.9); Immature Granulocytes % 0.4 % (0-4)
[2017-08-28 02:50] LABS: Eosinophils % 0.3 %; Hematocrit 22.1 % (37.5-50.1); Immature Platelets 9.4 % (1.1-6.1); Lymphocytes # 0.5 K/mcL (0.6-4.6); Lymphocytes % 4.6 %; Mean Corpuscular Hemoglobin 25.3 pg (28.0-33.3); Mean Corpuscular Volume 76.7 fL (83.0-100.0); Mean Platelet Volume 10.7 fL (9.4-12.4); Monocytes # 0.4 K/mcL (0.0-1.3); Monocytes % 3.8 %; Red Blood Count 2.88 M/mcL (4.19-5.50); Red Cell Distribution Width 21.9 % (11.5-14.5); Segmented Neutrophils % 90.9 %
[2017-08-28 02:52] LABS: Neutrophils # 9.3 K/mcL (1.6-8.9); Platelet Count 86 K/mcL (140-400)
[2017-08-28 03:02] LABS: Calcium 8.5 mg/dL (8.6-10.8); Potassium 3.3 mEq/L (3.5-4.5)
[2017-08-28] MEDS: Pantoprazole 40 MG VIAL IVP SCH ×2 (06:45→16:38)
[2017-08-28 08:27] LABS: Hematocrit 22.2 % (37.5-50.1)
[2017-08-28 08:28] LABS: Hemoglobin 7.3 g/dL (12.9-16.9)
[2017-08-28] MEDS: Doxycycline 100 MG CAPSULE PO SCH (08:58)
[2017-08-28] MEDS: cephALEXin 250 MG CAPSULE PO SCH (08:58)
[2017-08-28] MEDS: Metoprolol XL (24 HR) Succ 50 MG TAB.ER.24H PO SCH (08:58)
[2017-08-28] MEDS: Megestrol Acetate 400 MG/10 ML UDC PO SCH (08:58)
[2017-08-28] MEDS: Aspirin Enteric Coated 81 MG Tablet PO SCH (08:58)
--- NOTE | 2017-08-28 10:46 | Nephrology Progress Note ---
Date of Encounter: 08/28/17 Time of Encounter: 10:44 - Assessment and Plan (1) GERRY (acute kidney injury) Current Visit: Yes Status: Acute SCr slightly worse today likely related to hypoperfusion in the setting of acute blood loss anemia. GERRY likely multifactorial in the setting of her hydronephrosis with underlying severe cardiomyopathy and atrial fibrillation. Patient continues to have excellent urine output. We would recommend continuing IV diuresis as blood pressure allows and until further goals of care can be established. Continue Vera for now, when the Vera was removed patient will need to be monitored for signs of urinary retention and if urine retention worsens would recommend consult to urology. Chest x-ray reveals moderate to large bilateral pleural effusions, even with diuresis these may not resolve. Patient may benefit from thoracentesis to remove this fluid. Currently no indications for renal replacement therapy at this time. No indication for MANDEEP as his anemia is likely driven by acute blood loss. Agree with GI consultation however given the patient's severe underlying comorbidities he may not be a candidate for any intervention. Patient is noted to be hypokalemic today, will replace with potassium 40 mEq 2 doses today. We will also check a magnesium level and replace as needed. Continue renal protective strategy by avoiding nephrotoxins including NSAIDs, dosing medications based on renal functions. Given the patient's multiple severe comorbidities and declining functional status he is a poor candidate for long-term dialysis if it were to become necessary. Would continue to recommend avoiding IV contrast exposure from left heart catheterization or angiography until renal function improves. Patient's prognosis remains poor both overall as well as from a renal perspective. This was discussed at length with the patient. We will continue to follow. (2) Anemia Current Visit: Yes Status: Acute see above Qualifiers: Anemia type: other cause Other causes of anemia: acute posthemorrhagic Qualified Code(s): D62 - Acute posthemorrhagic anemia (3) Atrial fibrillation with RVR Current Visit: Yes Status: Acute As per primary/cardio (4) Cardiomyopathy Current Visit: Yes Status: Acute As per primary/cardio Qualifiers: Cardiomyopathy type: unspecified Qualified Code(s): I42.9 - Cardiomyopathy , unspecified (5) DM2 (diabetes mellitus, type 2) Current Visit: Yes Status: Chronic As per primary/cardio Qualifiers: Diabetes mellitus complication status: without complication Diabetes mellitus long-term insulin use: without long-term use Qualified Code(s): E11.9 - Type 2 diabetes mellitus without complications (6) Hypertension Current Visit: Yes Status: Chronic Blood pressure stable, improved with albumin and Lasix. Avoid LIDIA inhibitor or ARB in the setting of GERRY. Qualifiers: Hypertension type: essential hypertension Qualified Code(s): I10 - Essential (primary) hypertension (7) PAD (peripheral artery disease) Current Visit: Yes Status: Acute Likely inducing dry gangrene. (8) Pleural effusion Current Visit: Yes Status: Acute Likely related to underlying severe cardiomyopathy. 2 view chest x-ray is pending. (9) Ascites Current Visit: Yes Status: Acute As per primary Qualifiers: Ascites type: other type Qualified Code(s): R18.8 - Other ascites (10) Hydronephrosis, right Current Visit: Yes Status: Acute See above. (11) Left renal atrophy Current Visit: Yes Status: Acute Likely chronic. Would recommend renal Doppler ultrasound some point but given that his blood pressures are stable it is not an urgent issue Subjective Principal diagnosis: A-Fib RVR, CHF, CMP Interval history: Patient seen and examined at bedside. Patient states that he feels okay today. He was pleasant and smiling during our discussion this morning. He states his legs still hurt today. He denies fever, chills, chest pain, shortness of breath, abdominal pain. Objective - Vital Signs Vital signs: Vital Signs Temp Pulse Resp BP Pulse Ox 08/28/17 07:15 97.6 F 105 16 119/73 98 08/28/17 05:00 98.4 F 97 18 115/89 100 08/28/17 00:00 97.8 F 103 18 114/90 100 08/27/17 19:00 97.2 F L 103 18 106/73 100 08/27/17 16:50 97.8 F 109 16 105/77 08/27/17 16:42 102 16 114/80 08/27/17 15:45 97.3 F L 102 16 114/80 98 08/27/17 14:32 97.7 F 119 16 102/70 08/27/17 11:44 98.7 F 109 16 108/81 08/27/17 11:28 97.4 F L 111 16 95/69 08/27/17 11:18 97.4 F L 111 16 95/69 100 Intake and Output 08/27/17 08/28/17 08/28/17 23:59 07:59 15:59 Intake Total 350 / 350 220 / 220 0 / 0 Output Total 1550 / 1550 600 / 600 Balance -1200 / -1200 -380 / -380 0 / 0 Intake: IV Fluids 100 / 100 Flexbumin 25 gm In 100 ml @ 60 100 / 100 mls/hr IVPB Q12H [facility] Rx#: [id number] Oral 120 / 120 0 / 0 Blood Product 350 / 350 Rbcs Leuko Poor As-1 Unit 350 / 350 [id number] Output: Catheter 1550 / 1550 600 / 600 Other: Stool Size Moderate Stool Consistency liquid Stool Color Black # Voids 300 # Bowel Movement Diapers 1 Weight 87.9 kg Blood Glucose* 102 133 Patient Weight 08/28/17 23:59 Weight 87.9 kg - General Appearance General appearance: Present: well-nourished, chronically ill EENT: Present: ATNC, PERRL, mucous membranes moist Neck: Present: supple Respiratory: Present: rales, course breath sounds Cardiology: Present: no murmurs, no rub, no gallops, edema (2+ lower extremity bilaterally), irregular rhythm Gastrointestinal: Present: normoactive bowel sounds, no tenderness, no guarding Integumentary: Present: cool/clammy, erythema, ecchymotic, hyperpigmentation, chronic venous stasis Additional Comments: Necrotic ulcers present to lower extremities bilaterally, appear dry Neurologic: Present: no focal deficit, alert and oriented x3 - Lab 08/28/17 08:12 08/28/17 02:34 Most recent lab results Calcium 8.5 mg/dL (8.6-10.8) L 08/28/17 02:34 Phosphorus 3.4 mg/dL (2.3-4.7) 08/27/17 05:03 Magnesium 1.5 mg/dL (1.6-2.6) L 08/27/17 05:03 Urine Creatinine 32 mg/dL 08/26/17 04:00 Urine Total Protein 11 mg/dL (1-14) 08/26/17 04:00 Consult Discharge Plan - Plan Referrals: NONE,PCP [Primary Care Provider] -
--- NOTE | 2017-08-28 11:07 | Gastroenterology Consult Note ---
<Sofie Coulter - Last Filed: 08/28/17 16:34> Date of Encounter: 08/28/17 Time of Encounter: 09:10 - Assessment and plan (1) Severe anemia Status: Acute Assessment and plan: Pt has multiple comorbid conditions including severe PVD with necrotic lesions, CHF and severe cardiomyopathy with EF 15-20%. He developed black liquid stools yesterday and heparin was stopped. he received blood transfusions. He needs EGD but is a very poor candidate for EGD or colonoscopy. Discussed with pt that risk outweighs benefits at this time. Continue PPI, would recommend supportive and palliative care. - Time Spent With Patient Total time spent is greater than 50% in coordination of care (as documented) at patient's floor/unit and/or counseling patient: GI History of Present Illness - Data of Consult Patient: new to practice Consult date: 08/28/17 Requesting Physician: Nba Engle - Consult Narrative Reason for consult: anemia History of present illness: Mr. Smith is a 77 year old male with a past medical history of hypertension and diabetes who presented to [place] ED ED by EMS because of non healing ulcers on his legs bilaterally. X-ray feet and ankle showed no acute osseous abnormality or osteomyelitis. CXR showed cardiomegaly with hydrostatic edema, small pleural effusion, acute CHF. He reported that he has never sought treatment for the care of his feet. His family doctor is Dr. Tico Guido in [facility] but he does not know about the patient's legs. Patient had a 2-D echocardiogram which showed EF of 15-20%. Lower extremity arterial study showed critical disease bilaterally. Patient had necrotic lesions on the plantar surfaces of toes of both lower extremities. He was not a candidate for intervention and was started on heparin drip. He developed black liquid stools yesterday and hgb dropped to 5.6. He also reports poor appetite and weight loss of 30 lbs in the past 2 months. He denies abdominal pain at this time. He denies nausea or vomiting, GERD or dysphagia. He does complain of SOA but denies chest pain. He denies history of smoking, drug, alcohol. Past Med Surg Social Fam HX - Past Medical History Medical history: coronary artery disease, diabetes, hypertension, valvular heart disease Psychiatric history: no psych history - Past Surgical History Surgical History: coronary bypass (CABG), heart valve replacement (2 valve replacement ) - Social History Smoking Status: Never smoker Smokeless Tobacco Status: No Alcohol use: none Drug use: none - Family History Mother Hx Family Cancer: Yes Father Hx Family Cancer: Yes Review of Systems: GI: as per [facility]: denies fever, or chills EYES: denies yellow discoloration ENT: denies pain with swallowing or difficulty swallowing CARDIO: denies chest pain, palpitations RESP: No Shortness of breath with exertion : denies change in color of urine NEURO: denies any weakness HEME: Denies any bruising MS: joint pain, and back pain. DERM: denies rash or itching PSYCH: history of anxiety and depression - Constitutional Vitals: Temp Pulse Resp BP Pulse Ox 97.6 F 105 16 119/73 98 08/28/17 07:15 08/28/17 07:15 08/28/17 07:15 08/28/17 07:15 08/28/17 07:15 Exam: CONSTITUTIONAL:~alert, no acute distress.~HEAD:~normocephalic, bitemporal wasting noted.~EYES:~no jaundice.~NECK:~no obvious swelling.~HEART:~regular rate and rhythm, murmurs, noted.~LUNGS:~bilateral poor air entry.~ABDOMEN:~ softly distended, non tender, no masses palpable, no organomegaly.~RECTAL EXAM:~ Deferred.~EXTREMITIES:~no clubbing, cyanosis, 2+ BLE edema, purple/black areas to left lower leg and bilateral toes~SKIN:~pallor noted, no stigmata of chronic liver disease.~NEUROLOGIC:~no obvious focal defect.~~~~ Results - Labs CBC & Chem 7: 08/28/17 08:12 08/28/17 02:34 Labs: Last Result Calcium 8.5 mg/dL (8.6-10.8) L 08/28/17 02:34 Stool Occult Blood Positive (Negative) A 08/26/17 17:15 Entire Visit Hgb 7.3 g/dL (12.9-16.9) L 08/28/17 08:12 Hct 22.2 % (37.5-50.1) L 08/28/17 08:12 PT 18.9 Seconds (9.4-12.1) H 08/23/17 08:12 - ABG ABG results: PT/INR, D-dimer PT 18.9 Seconds (9.4-12.1) H 08/23/17 08:12 Consult Discharge Plan - Plan Instructions: Atrial Fibrillation (DC), Pacemaker (DC), Diabetes Mellitus Type 2 in Adults (DC) Referrals: NONE,PCP [Primary Care Provider] - Prescriptions: OxyCODONE Immed Rel [Roxicodone 5 MG] 10 mg PO Q4HR PRN #20 tablet PRN Reason: Severe pain (7-10) LORazepam [Ativan] 1 mg PO TID PRN #20 tablet PRN Reason: Anxiety Morphine Oral CONC [Roxanol] 0.25 - 0.5 ml PO Q1H PRN #30 ml PRN Reason: pain/dyspnea <Hayes Curtis - Last Filed: 09/01/17 09:18> Date of Encounter: 08/28/17 - Time Spent With Patient Total time spent is greater than 50% in coordination of care (as documented) at patient's floor/unit and/or counseling patient: GI History of Present Illness - Data of Consult Requesting Physician: Nba Engle - Consult Narrative History of present illness: Mr. Smith is a 77 year old male - Constitutional Vitals: Temp Pulse Resp BP Pulse Ox 98 F 118 14 111/75 96 08/30/17 07:00 08/30/17 07:00 08/30/17 07:00 08/30/17 07:00 08/30/17 07:00 Results - Labs CBC & Chem 7: 08/29/17 03:40 08/29/17 03:40 Labs: Last Result Calcium 8.6 mg/dL (8.6-10.3) 08/29/17 03:40 Stool Occult Blood Positive (Negative) A 08/26/17 17:15 Entire Visit Hgb 6.8 g/dL (12.9-16.9) L 08/29/17 03:40 Hct 21.2 % (37.5-50.1) L 08/29/17 03:40 PT 18.9 Seconds (9.4-12.1) H 08/23/17 08:12 - ABG ABG results: PT/INR, D-dimer PT 18.9 Seconds (9.4-12.1) H 08/23/17 08:12 - Attending Attestation I have personally performed a face to face evaluation on this patient. I have reviewed and agree with the care plan. History and Exam by me shows:
[2017-08-28] MEDS: Albumin 25% 25gram/100mL 25 GM/100 ML IV.SOLN IVPB SCH (12:17)
--- NOTE | 2017-08-28 13:45 | Palliative Progress Note ---
Date of Encounter: 08/28/17 Time of Encounter: 13:30 - Assessment and plan (1) Generalized pain Current Visit: Yes Status: Acute Assessment and plan: He is still swallowing medications well. Will begin Oxycodone 5 -10 mg for comfort if needed. (2) Anxiety Current Visit: Yes Status: Acute Assessment and plan: Will begin low dose Lorazepam prn and monitor. (3) Counseling regarding advanced care planning and goals of care Current Visit: Yes Status: Acute Assessment and plan: Continued discussion with pt/brother. Patient appears to be having difficulty with processing information, but he does understand he is very ill and not a candidate for procedures to address his multiple medical problems. He is in agreement to be kept comfortable. Brother Don transitioned to DNR-Comfort Care. No further tranfusions/aggressive testing. As noted previously, there is no care provider at home. Brother has reached out to nursing facilities in [place] and state no open beds for a week. He will be looking at facilities in [facility] today. He states he picked up the Medicaid application, but they did inform him it would be 45-60 days before looked at. He did state he may be able to private pay temporarily. He has information that home helpers would provide 24/7 prison care, but would take possibly 2 weeks for staff to be arranged, and family would still need to manage and administer pt medications with hospice support and brother states he is unable to provide that. Will have Ricardo Watson f/u in am, and POA to contact /visit ECF in [facility] today. (4) GERRY (acute kidney injury) Current Visit: Yes Status: Acute (5) Cardiomyopathy Current Visit: Yes Status: Acute Qualifiers: Cardiomyopathy type: unspecified Qualified Code(s): I42.9 - Cardiomyopathy , unspecified (6) PAD (peripheral artery disease) Current Visit: Yes Status: Acute - Time Spent With Patient Total time spent is greater than 50% in coordination of care (as documented) at patient's floor/unit and/or counseling patient: 25 - 35 minutes - Subjective Interval history: Patient awake, but drowsy and has difficulty staying awake during conversation. He is aware of grim prognosis, and he is not candidate for further invasive procedures. Hgb has remained stable since transfusion yesterday - no further tarry stools this am. GI consult reviewed. Renal function slightly worse today. All specialty service reports reviewed and appreciated. Patient denies any discomfort/dyspnea/nausea/anxiety. Only c/o weakness. Brother, GEO Hickey at bedside. - Constitutional Vitals: Abnormal lab results RBC 2.88 M/mcL (4.19-5.50) L 08/28/17 02:34 Hgb 7.3 g/dL (12.9-16.9) L 08/28/17 08:12 Hct 22.2 % (37.5-50.1) L 08/28/17 08:12 MCV 76.7 fL (83.0-100.0) L 08/28/17 02:34 MCH 25.3 pg (28.0-33.3) L 08/28/17 02:34 RDW 21.9 % (11.5-14.5) H 08/28/17 02:34 Plt Count 86 K/mcL (140-400) L 08/28/17 02:34 Neutrophils # 9.3 K/mcL (1.6-8.9) H 08/28/17 02:34 Lymphocytes # 0.5 K/mcL (0.6-4.6) L 08/28/17 02:34 Platelet Estimate Decreased (Normal) L 08/26/17 00:34 Large Platelets Present (Not Present) A 08/24/17 02:58 Immature Plt Fraction 9.4 % (1.1-6.1) H 08/28/17 02:34 Hypochromasia Present (Not Present) A 08/26/17 00:34 Poikilocytosis 1+ (Not Present) A 08/25/17 01:05 Anisocytosis 1+ (Not Present) A 08/25/17 01:05 Microcytosis Present (Not Present) A 08/24/17 02:58 Target Cells 1+ (Not Present) A 08/24/17 02:58 Tear Drop Cells 1+ (Not Present) A 08/24/17 02:58 Ovalocytes 1+ (Not Present) A 08/24/17 02:58 Tutu Cells 2+ (Not Present) A 08/26/17 00:34 Acanthocytes (Spur) 3+ (Not Present) A 08/24/17 02:58 Schistocytes 1+ (Not Present) A 08/23/17 08:12 PT 18.9 Seconds (9.4-12.1) H 08/23/17 08:12 APTT 76.3 Seconds (26.0-36.0) H 08/26/17 15:10 Potassium 3.3 mEq/L (3.5-4.5) L 08/28/17 02:34 BUN 84 mg/dL (8-26) H 08/28/17 02:34 Creatinine 1.75 mg/dL (0.72-1.25) H 08/28/17 02:34 Est GFR ( Amer) 46 (> 60) L 08/28/17 02:34 Est GFR (Non-Af Amer) 38 (> 60) L 08/28/17 02:34 BUN/Creatinine Ratio 48 (6-26) H 08/28/17 02:34 Glucose 102 mg/dL (70-99) H 08/28/17 02:34 POC Glucose 133 (58-89) H 08/28/17 07:19 Calculated Osmolality 314 (280-300) H 08/28/17 02:34 Calcium 8.5 mg/dL (8.6-10.8) L 08/28/17 02:34 B-Natriuretic Peptide 2635 pg/mL (0-100) H 08/27/17 05:03 Total Protein (PEP) 5.60 g/dL (6.00-8.30) L 08/24/17 02:58 Albumin 2.0 g/dL (3.5-5.0) L 08/27/17 05:03 Albumin (PEP) 2.63 g/dL (3.75-5.01) L 08/24/17 02:58 [id number] 0.51 g/dL (0.19-0.46) H 08/24/17 02:58 Urine Clarity Cloudy (Clear) A 08/25/17 18:30 Urine Protein 30 mg/dL (Neg-Trace) H 08/25/17 18:30 Urine Blood Large (Negative) H 08/25/17 18:30 Urine Microscopic RBC 50-100 per hpf (0-3) H 08/25/17 18:30 Ur Squamous Epith Cells Moderate per lpf (None-Few) H 08/25/17 18:30 Microalb/Creat Ratio 159 (0-30) H 08/26/17 04:00 Protein/Creatinin Ratio 0.34 mg/mg (0-0.20) H 08/26/17 04:00 Stool Occult Blood Positive (Negative) A 08/26/17 17:15 General appearance: Present: no acute distress - Respiratory Respiratory exam: Present: decreased breath sounds Additional comments: Crackles to bilateral lower lungs - Cardiovascular Cardiovascular exam: Present: irregular rhythm, +S1, +S2 Additional comments: Occasional S3 noted - GI/Abdominal GI/Abdominal exam: Present: diminished bowel sounds, distended, soft - Extremities Exam Additional comments: Necrotic areas remain to bilateral lower extremities. They remain with some erythema, but now appear to have dusky undertone. - Neurological Exam Neurological exam: Present: alert, oriented X3, strengths equal and symetr throughout Additional comments: Generalized weakness - Skin Skin exam: Present: dry, warm Palliative Quality Palliative Quality: Screen for Code Status: Yes, Screen for Goals of Care: Yes, Screen for Pain: Yes, If Pain Regimen Started, Initiate Bowel Regimen: NA, Screen for Nausea/Vomitting: Yes Code Status: 08/23/17 03:30 Resuscitation Status: Active [RES] Routine Comment: Resuscitation Status: Full Code 08/26/17 13:39 DNR [Resuscitation Status: Active] [RES] Routine Comment: Resuscitation Status: [id number] 08/28/17 13:41 DNR [Resuscitation Status: Active] [RES] Routine Comment: Resuscitation Status: DNR-Comfort Care - Labs CBC & Chem 7: 08/28/17 08:12 08/28/17 02:34 Labs: Laboratory Results - last 24 hr 08/27/17 08/27/17 08/27/17 07:25 07:27 11:23 WBC RBC Hgb Hct MCV MCH MCHC RDW Plt Count MPV Immature Gran % Seg Neutrophils % Lymphocytes % Monocytes % Eosinophils % Basophils % Neutrophils # Lymphocytes # Monocytes # Eosinophils # Basophils # Immature Plt Fraction Sodium Potassium Chloride Carbon Dioxide BUN Creatinine Est GFR ( Amer) Est GFR (Non-Af Amer) BUN/Creatinine Ratio Glucose POC Glucose 150 H 240 H Calculated Osmolality Calcium Magnesium Blood Type O POSITIVE Antibody Screen NEGATIVE Crossmatch See Detail 08/27/17 08/27/17 08/27/17 16:27 19:39 20:34 WBC RBC Hgb 7.6 L D Hct 23.2 L MCV MCH MCHC RDW Plt Count MPV Immature Gran % Seg Neutrophils % Lymphocytes % Monocytes % Eosinophils % Basophils % Neutrophils # Lymphocytes # Monocytes # Eosinophils # Basophils # Immature Plt Fraction Sodium Potassium Chloride Carbon Dioxide BUN Creatinine Est GFR ( Amer) Est GFR (Non-Af Amer) BUN/Creatinine Ratio Glucose POC Glucose 87 102 H Calculated Osmolality Calcium Magnesium Blood Type Antibody Screen Crossmatch 08/28/17 08/28/17 08/28/17 02:33 02:34 02:34 WBC 10.2 RBC 2.88 L Hgb 7.3 L Hct 22.1 L MCV 76.7 L MCH 25.3 L MCHC 33.0 RDW 21.9 H Plt Count 86 L MPV 10.7 Immature Gran % 0.4 Seg Neutrophils % 90.9 Lymphocytes % 4.6 Monocytes % 3.8 Eosinophils % 0.3 Basophils % 0.0 Neutrophils # 9.3 H Lymphocytes # 0.5 L Monocytes # 0.4 Eosinophils # 0.0 Basophils # 0.0 Immature Plt Fraction 9.4 H Sodium 139 Potassium 3.3 L Chloride 105 Carbon Dioxide 21 BUN 84 H Creatinine 1.75 H Est GFR ( Amer) 46 L Est GFR (Non-Af Amer) 38 L BUN/Creatinine Ratio 48 H Glucose 102 H POC Glucose Calculated Osmolality 314 H Calcium 8.5 L Magnesium 1.7 Blood Type Antibody Screen Crossmatch 08/28/17 08/28/17 08/28/17 02:34 07:19 08:12 WBC RBC Hgb 7.2 L 7.3 L Hct 22.3 L 22.2 L MCV MCH MCHC RDW Plt Count MPV Immature Gran % Seg Neutrophils % Lymphocytes % Monocytes % Eosinophils % Basophils % Neutrophils # Lymphocytes # Monocytes # Eosinophils # Basophils # Immature Plt Fraction Sodium Potassium Chloride Carbon Dioxide BUN Creatinine Est GFR ( Amer) Est GFR (Non-Af Amer) BUN/Creatinine Ratio Glucose POC Glucose 133 H Calculated Osmolality Calcium Magnesium Blood Type Antibody Screen Crossmatch - ABG Interpretation ABG results: PT/INR, D-dimer PT 18.9 Seconds (9.4-12.1) H 08/23/17 08:12 Consult Discharge Plan - Plan Referrals: NONE,PCP [Primary Care Provider] -
[2017-08-28] MEDS ORDERED: *HR* LORazepam 1 MG TABLET PO PRN (13:56)
[2017-08-28] MEDS ORDERED: *HR* OxyCODONE Immed Rel 5 MG TABLET PO PRN (13:57)
[2017-08-28] MEDS: levoFLOXacin 750 MG TABLET PO SCH (16:35)
[2017-08-28] MEDS: *HR* OxyCODONE Immed Rel 5 MG TABLET PO PRN (16:35)
[2017-08-28] MEDS: Insulin LISPRO 300 UNITS/3 ML VIAL SQ SCH ×3 (16:44→21:21)
--- NOTE | 2017-08-28 18:22 | Internal Med Progress Note ---
Date of Encounter: 08/28/17 Time of Encounter: 11:00 - Assessment and plan (1) GERRY (acute kidney injury) Current Visit: Yes Status: Acute Assessment and plan: Improving. Creatinine 1.69 today. Nephrology following. Appreciate recommendations (2) CAD (coronary artery disease) Current Visit: Yes Status: Chronic Assessment and plan: With the cardiomyopathy. Cardiology has recommended against cardiac catheterization at this time given patient's GI bleed and severe anemia. Continue aspirin at low dose for now while we monitor her blood counts closely. Qualifiers: Coronary Disease-Associated Artery/Lesion type: [place] artery [place] vs. transplanted heart: [place] heart Associated angina: without angina Qualified Code(s): I25.10 - Atherosclerotic heart disease of [place] coronary artery without angina pectoris (3) Atrial fibrillation with RVR Current Visit: Yes Status: Acute Assessment and plan: Cardizem has been stopped. Patient is on 150 mg Toprol-XL. We will continue to monitor. (4) Bilateral cellulitis of lower leg Current Visit: Yes Status: Acute Assessment and plan: Will discontinue cephalexin and doxycycline and start Levaquin due to culture sensitivities. (5) Anemia Current Visit: Yes Status: Acute Assessment and plan: Hemoglobin stable Suspect GI bleed and GI consult with recommendations for conservative care at this point. Qualifiers: Anemia type: other cause Other causes of anemia: acute posthemorrhagic Qualified Code(s): D62 - Acute posthemorrhagic anemia (6) Hypertension Current Visit: Yes Status: Chronic Assessment and plan: Well-controlled Qualifiers: Hypertension type: essential hypertension Qualified Code(s): I10 - Essential (primary) hypertension - Subjective Interval history: No acute events overnight. His hemoglobin remains stable after transfusion - Constitutional Vitals: Temp Pulse Resp BP Pulse Ox 98.4 F 108 16 114/74 99 08/28/17 15:14 08/28/17 15:14 08/28/17 15:14 08/28/17 15:14 08/28/17 15:14 General appearance: Present: cooperative, mild distress, A&O X 3, pleasant, answers questions appropriately - Respiratory Respiratory exam: Present: CTAB. Absent: accessory muscle use, rales, rhonchi, wheezes - Cardiovascular Cardiovascular exam: Present: RRR, +S1, +S2. Absent: diastolic murmur, gallop, rubs, systolic murmur Internal Medicine: Result - Labs CBC & Chem 7: 08/28/17 08:12 08/28/17 02:34 Labs: Short CBC 08/27/17 08/28/17 08/28/17 Range/Units 20:34 02:34 02:34 WBC 10.2 (4.3-11.1) K/mcL Hgb 7.6 L D 7.3 L 7.2 L (12.9-16.9) g/dL Hct 23.2 L 22.1 L 22.3 L (37.5-50.1) % Plt Count 86 L (140-400) K/mcL Neutrophils # 9.3 H (1.6-8.9) K/mcL 08/28/17 Range/Units 08:12 WBC (4.3-11.1) K/mcL Hgb 7.3 L (12.9-16.9) g/dL Hct 22.2 L (37.5-50.1) % Plt Count (140-400) K/mcL Neutrophils # (1.6-8.9) K/mcL BMP 08/28/17 02:34 Sodium 139 Potassium 3.3 L Chloride 105 Carbon Dioxide 21 BUN 84 H Creatinine 1.75 H Glucose 102 H Calcium 8.5 L - ABG Interpretation ABG results: PT/INR, D-dimer PT 18.9 Seconds (9.4-12.1) H 08/23/17 08:12 Consult Discharge Plan - Plan Referrals: NONE,PCP [Primary Care Provider] -
[2017-08-29] MEDS: Albumin 25% 25gram/100mL 25 GM/100 ML IV.SOLN IVPB SCH ×2 (00:19→12:24)
[2017-08-29] MEDS: Furosemide 40 MG/4 ML VIAL IVP SCH ×2 (00:19→12:23)
[2017-08-29 03:54] LABS: Eosinophils % 0.6 %; Monocytes % 4.3 %; Red Blood Count 2.69 M/mcL (4.19-5.50)
[2017-08-29 03:56] LABS: Basophils % 0.1 %; Eosinophils # 0.1 K/mcL (0.0-0.6); Hematocrit 21.2 % (37.5-50.1); Hemoglobin 6.8 g/dL (12.9-16.9); Immature Granulocytes % 0.5 % (0-4); Immature Platelets 10.2 % (1.1-6.1); Lymphocytes # 0.5 K/mcL (0.6-4.6); Lymphocytes % 4.3 %; Mean Corpuscular HGB Conc 32.1 g/dL (31.6-35.5); Mean Corpuscular Hemoglobin 25.3 pg (28.0-33.3); Mean Corpuscular Volume 78.8 fL (83.0-100.0); Mean Platelet Volume 11.6 fL (9.4-12.4); Monocytes # 0.5 K/mcL (0.0-1.3); Neutrophils # 9.8 K/mcL (1.6-8.9); Red Cell Distribution Width 22.2 % (11.5-14.5); Segmented Neutrophils % 90.2 %
[2017-08-29 04:00] LABS: Platelet Count 94 K/mcL (140-400)
[2017-08-29 04:07] LABS: Calcium 8.6 mg/dL (8.6-10.3); Potassium 3.9 mEq/L (3.5-5.1)
[2017-08-29 04:27] LABS: Hypochromasia Present (Not Present); Macrocytosis Present (Not Present); Ovalocytes 1+ (Not Present); Schistocytes 1+ (Not Present)
[2017-08-29 04:28] LABS: Poikilocytosis 1+ (Not Present); Polychromasia 1+ (Not Present)
[2017-08-29 04:29] LABS: Burr Cells 1+ (Not Present); Platelet Estimate Decreased (Normal)
[2017-08-29] MEDS: Pantoprazole 40 MG VIAL IVP SCH ×2 (06:33→16:37)
[2017-08-29] MEDS: Aspirin Enteric Coated 81 MG Tablet PO SCH (08:46)
[2017-08-29] MEDS: Megestrol Acetate 400 MG/10 ML UDC PO SCH (08:46)
[2017-08-29] MEDS: Metoprolol XL (24 HR) Succ 50 MG TAB.ER.24H PO SCH (08:46)
[2017-08-29] MEDS: Insulin LISPRO 300 UNITS/3 ML VIAL SQ SCH ×4 (08:47→21:29)
--- NOTE | 2017-08-29 09:06 | Palliative Progress Note ---
Date of Encounter: 08/29/17 Time of Encounter: 09:00 - Assessment and plan (1) Generalized pain Current Visit: Yes Status: Acute Assessment and plan: Continue Oxycodone at present time. He has only utilized one dose in last 24 hours. (2) Anxiety Current Visit: Yes Status: Acute Assessment and plan: Continue Lorazepam PRN. Has not utilized (3) Counseling regarding advanced care planning and goals of care Current Visit: Yes Status: Acute Assessment and plan: D/W Ricardo Watson - will be meeting again with brother today to discuss discharge planning. Most likely will have to private pay to ECF and have hospice involvement. No further transfusions. Will d/c telemetry. (4) GERRY (acute kidney injury) Current Visit: Yes Status: Acute (5) Cardiomyopathy Current Visit: Yes Status: Acute Qualifiers: Cardiomyopathy type: unspecified Qualified Code(s): I42.9 - Cardiomyopathy , unspecified (6) PAD (peripheral artery disease) Current Visit: Yes Status: Acute - Time Spent With Patient Total time spent is greater than 50% in coordination of care (as documented) at patient's floor/unit and/or counseling patient: - Subjective Interval history: Patient awake, ate few bites breakfast. Denies pain or discomfort. Denies shortness of breath. Hgb back down to 6.8. Apical irregular. No family has arrived as of yet - Constitutional Vitals: Abnormal lab results RBC 2.69 M/mcL (4.19-5.50) L 08/29/17 03:40 Hgb 6.8 g/dL (12.9-16.9) L 08/29/17 03:40 Hct 21.2 % (37.5-50.1) L 08/29/17 03:40 MCV 78.8 fL (83.0-100.0) L 08/29/17 03:40 MCH 25.3 pg (28.0-33.3) L 08/29/17 03:40 RDW 22.2 % (11.5-14.5) H 08/29/17 03:40 Plt Count 94 K/mcL (140-400) L 08/29/17 03:40 Neutrophils # 9.8 K/mcL (1.6-8.9) H 08/29/17 03:40 Lymphocytes # 0.5 K/mcL (0.6-4.6) L 08/29/17 03:40 Platelet Estimate Decreased (Normal) L 08/29/17 03:40 Large Platelets Present (Not Present) A 08/24/17 02:58 Immature Plt Fraction 10.2 % (1.1-6.1) H 08/29/17 03:40 Polychromasia 1+ (Not Present) A 08/29/17 03:40 Hypochromasia Present (Not Present) A 08/29/17 03:40 Poikilocytosis 1+ (Not Present) A 08/29/17 03:40 Anisocytosis 1+ (Not Present) A 08/25/17 01:05 Microcytosis Present (Not Present) A 08/24/17 02:58 Macrocytosis Present (Not Present) A 08/29/17 03:40 Target Cells 1+ (Not Present) A 08/24/17 02:58 Tear Drop Cells 1+ (Not Present) A 08/24/17 02:58 Ovalocytes 1+ (Not Present) A 08/29/17 03:40 Tutu Cells 1+ (Not Present) A 08/29/17 03:40 Acanthocytes (Spur) 3+ (Not Present) A 08/24/17 02:58 Schistocytes 1+ (Not Present) A 08/29/17 03:40 PT 18.9 Seconds (9.4-12.1) H 08/23/17 08:12 APTT 76.3 Seconds (26.0-36.0) H 08/26/17 15:10 BUN 71 mg/dL (8-23) H 08/29/17 03:40 Creatinine 1.87 mg/dL (0.70-1.30) H 08/29/17 03:40 Est GFR ( Amer) 43 (> 60) L 08/29/17 03:40 Est GFR (Non-Af Amer) 35 (> 60) L 08/29/17 03:40 BUN/Creatinine Ratio 38 (6-26) H 08/29/17 03:40 Glucose 118 mg/dL (70-105) H 08/29/17 03:40 POC Glucose 145 (58-89) H 08/28/17 20:14 Calculated Osmolality 312 (280-300) H 08/29/17 03:40 B-Natriuretic Peptide 2635 pg/mL (0-100) H 08/27/17 05:03 Total Protein (PEP) 5.60 g/dL (6.00-8.30) L 08/24/17 02:58 Albumin 2.0 g/dL (3.5-5.0) L 08/27/17 05:03 Albumin (PEP) 2.63 g/dL (3.75-5.01) L 08/24/17 02:58 Akndx-5-[id number] 0.51 g/dL (0.19-0.46) H 08/24/17 02:58 Urine Clarity Cloudy (Clear) A 08/25/17 18:30 Urine Protein 30 mg/dL (Neg-Trace) H 08/25/17 18:30 Urine Blood Large (Negative) H 08/25/17 18:30 Urine Microscopic RBC 50-100 per hpf (0-3) H 08/25/17 18:30 Ur Squamous Epith Cells Moderate per lpf (None-Few) H 08/25/17 18:30 Microalb/Creat Ratio 159 (0-30) H 08/26/17 04:00 Protein/Creatinin Ratio 0.34 mg/mg (0-0.20) H 08/26/17 04:00 Stool Occult Blood Positive (Negative) A 08/26/17 17:15 General appearance: Present: no acute distress - Respiratory Additional comments: Rales bilaterally - Cardiovascular Cardiovascular exam: Present: irregular rhythm, tachycardia - GI/Abdominal GI/Abdominal exam: Present: distended, soft - Extremities Exam Additional comments: Necrotic draining wounds bilateral lower legs. - Neurological Exam Neurological exam: Present: alert, oriented X3 Additional comments: generalized weakness - Skin Skin exam: Present: dry, pallor Palliative Quality Palliative Quality: Screen for Code Status: Yes, Screen for Goals of Care: Yes, Screen for Pain: Yes, If Pain Regimen Started, Initiate Bowel Regimen: NA, Screen for Nausea/Vomitting: Yes Code Status: 08/23/17 03:30 Resuscitation Status: Active [RES] Routine Comment: Resuscitation Status: Full Code 08/26/17 13:39 DNR [Resuscitation Status: Active] [RES] Routine Comment: Resuscitation Status: [id number] 08/28/17 13:41 DNR [Resuscitation Status: Active] [RES] Routine Comment: Resuscitation Status: DNR-Comfort Care - Labs CBC & Chem 7: 08/29/17 03:40 08/29/17 03:40 Labs: Laboratory Results - last 24 hr 08/28/17 08/28/17 08/28/17 02:33 11:42 16:21 WBC RBC Hgb Hct MCV MCH MCHC RDW Plt Count MPV Immature Gran % Seg Neutrophils % Lymphocytes % Monocytes % Eosinophils % Basophils % Neutrophils # Lymphocytes # Monocytes # Eosinophils # Basophils # Platelet Estimate Immature Plt Fraction Polychromasia Hypochromasia Poikilocytosis Macrocytosis Ovalocytes [place] Cells Schistocytes Sodium Potassium Chloride Carbon Dioxide BUN Creatinine Est GFR ( Amer) Est GFR (Non-Af Amer) BUN/Creatinine Ratio Glucose POC Glucose 134 H 135 H Calculated Osmolality Calcium Magnesium 1.7 08/28/17 08/29/17 08/29/17 20:14 03:40 03:40 WBC 10.9 RBC 2.69 L Hgb 6.8 L Hct 21.2 L MCV 78.8 L MCH 25.3 L MCHC 32.1 RDW 22.2 H Plt Count 94 L MPV 11.6 Immature Gran % 0.5 Seg Neutrophils % 90.2 Lymphocytes % 4.3 Monocytes % 4.3 Eosinophils % 0.6 Basophils % 0.1 Neutrophils # 9.8 H Lymphocytes # 0.5 L Monocytes # 0.5 Eosinophils # 0.1 Basophils # 0.0 Platelet Estimate Decreased L Immature Plt Fraction 10.2 H Polychromasia 1+ A Hypochromasia Present A Poikilocytosis 1+ A Macrocytosis Present A Ovalocytes 1+ A [place] Cells 1+ A Schistocytes 1+ A Sodium 140 Potassium 3.9 Chloride 105 Carbon Dioxide 25 BUN 71 H Creatinine 1.87 H Est GFR ( Amer) 43 L Est GFR (Non-Af Amer) 35 L BUN/Creatinine Ratio 38 H Glucose 118 H POC Glucose 145 H Calculated Osmolality 312 H Calcium 8.6 Magnesium 08/29/17 03:40 WBC RBC Hgb Hct MCV MCH MCHC RDW Plt Count MPV Immature Gran % Seg Neutrophils % Lymphocytes % Monocytes % Eosinophils % Basophils % Neutrophils # Lymphocytes # Monocytes # Eosinophils # Basophils # Platelet Estimate Immature Plt Fraction Polychromasia Hypochromasia Poikilocytosis Macrocytosis Ovalocytes [place] Cells Schistocytes Sodium Potassium Chloride Carbon Dioxide BUN Creatinine Est GFR ( Amer) Est GFR (Non-Af Amer) BUN/Creatinine Ratio Glucose POC Glucose Calculated Osmolality Calcium Magnesium 1.7 - ABG Interpretation ABG results: PT/INR, D-dimer PT 18.9 Seconds (9.4-12.1) H 08/23/17 08:12 Consult Discharge Plan - Plan Referrals: NONE,PCP [Primary Care Provider] -
--- NOTE | 2017-08-29 10:38 | Event Note ---
Date of Encounter: 08/29/17 Time of Encounter: 10:37 Nephrology Chart Review I agree with goals of care to DNR-CC. Will sign off at this point. Thank you for consulting the [facility] group.
[2017-08-29] MEDS: *HR* OxyCODONE Immed Rel 5 MG TABLET PO PRN (16:41)
--- NOTE | 2017-08-29 17:06 | Discharge Summary ---
Date of Encounter: 08/29/17 Time of Encounter: 11:00 - Discharge Diagnosis (1) GERRY (acute kidney injury) Priority: Primary Status: Acute (2) CAD (coronary artery disease) Priority: Primary Status: Chronic Qualifiers: Coronary Disease-Associated Artery/Lesion type: [place] artery [place] vs. transplanted heart: [place] heart Associated angina: without angina Qualified Code(s): I25.10 - Atherosclerotic heart disease of [place] coronary artery without angina pectoris (3) Atrial fibrillation with RVR Priority: Primary Status: Acute (4) Bilateral cellulitis of lower leg Priority: Primary Status: Acute (5) Anemia Priority: Primary Status: Acute Qualifiers: Anemia type: other cause Other causes of anemia: acute posthemorrhagic Qualified Code(s): D62 - Acute posthemorrhagic anemia (6) Hypertension Priority: Secondary Status: Chronic Qualifiers: Hypertension type: essential hypertension Qualified Code(s): I10 - Essential (primary) hypertension - Discharge Medications Prescriptions: OxyCODONE Immed Rel [Roxicodone 5 MG] 10 mg PO Q4HR PRN #20 tablet PRN Reason: Severe pain (7-10) LORazepam [Ativan] 1 mg PO TID PRN #20 tablet PRN Reason: Anxiety Home Medications: GlipiZIDE [Glipizide Xl] 5 mg PO DAILY 08/22/17 [History] Lisinopril [Zestril] 30 mg PO DAILY 08/22/17 [History] Metoprolol Succinate 50 mg PO DAILY 08/22/17 [History] metFORMIN [Glucophage] 1,000 mg PO BIDWM 08/22/17 [History] LORazepam [Ativan] 1 mg PO TID PRN #20 tablet 08/29/17 [Rx] OxyCODONE Immed Rel [Roxicodone 5 MG] 10 mg PO Q4HR PRN #20 tablet 08/29/17 [Rx] Allergies/Adverse Reactions: 3 Allergy/AdvReac Type Severity Reaction Status Date / Time No Known Allergies Allergy Verified 08/22/17 18:35 Procedures/tests Complete & Pending: Procedures Performed prior 72 hours Category Date Time Status CL Cardiac Catheterization [CL] Routine Search Coordinator 08/27/17 08:34 Ordered Date of admission: 08/23/17 04:04 Primary care physician: PCP NONE Consults: 08/23/17 03:33 Consult to Wound Care [CONS] Routine Reason for Consult: non healing ulcers on legs Call Completed: No 08/23/17 03:38 Consult to Vascular Surgery [CONS] Routine Consulting Provider: Vascular Surgery Cor[facility] Reason for Consult: PAD. non healing ulcers on bilateral lower extremities Call Completed: Yes 08/23/17 03:43 Consult to Admitting Clerk [CONS] Routine Reason for SW Consult: poor care for self 08/23/17 07:58 Consult to Cardiology [CONS] Routine Comment: Consulting Provider: Cardiology Corazon Reason for Consult: new onset afib, chf decompensation Call Completed: Yes 08/23/17 12:13 Consult to Nephrology [CONS] Routine Consulting Provider: Kidney Corazon/KATRIN/SYLVIE/JAIMEE Reason for Consult: GERRY on CKD Call Completed: Yes 08/24/17 11:54 Consult to Palliative Care [CONS] Routine Comment: Consulting Provider: Palliative Care [place] Reason for Consult: Discuss goals and code status Call Completed: Yes 08/27/17 11:55 Consult to Gastroenterology [CONS] Stat Consulting Provider: Gastroenterology Corazon Reason for Consult: GI bleed Time Notified: 11:55 Call Completed: Yes - Patient Status Disposition: Hospice - Medical Facility - Discharge Instructions Follow Up With: NONE,PCP [Primary Care Provider] - Hospital course: Patient is a 77-year-old male with past medical history Yani for hypertension and diabetes who was transferred from [facility] on 08/23/17 because of non-healing ulcers on his legs bilaterally. Per ED report, his PA called EMS after visiting patient's home and examining his legs. The following were lab and imaging results at [facility]: EKG showed atrial fib with RVR, rate 119, no acute ST elevation. The patient was started on a Cardizem drip. Patient given multiple IVF boluses and dose of Zosyn. X-ray feet and ankle showed no acute osseous abnormality or osteomyelitis. CXR showed cardiomegaly with hydrostatic edema, small pleural effusion, acute CHF. Afebrile , HR 112, BP 124/90, WBC 10.4, lactic acid 2.5. BNP 2563, creatinine 1.71. Blood and wound cultures were also collected. Patient was then transferred to [facility] for continued management and evaluation. During patients hospital stay, he was noted to have acute on chronic loss anemia with possible GI source. GI was consulted but due to multiple comorbid conditions including severe PVD with necrotic lesions, CHF and severe cardiomyopathy with EF 15-20% recommended supportive/palliative care as patient is a poor candidate for EGD or colonoscopy. Due to cardiomyopathy cardiology was consulted with recommendations against cardiac catheterization at this time given patient's GI bleed and severe anemia ; medical management. Patient and family have decided palliative care will be discharged at [facility] for continued care. - Time Spent with Patient Total time spent providing and/or coordinating discharge services: Less than 30 minutes - Constitutional Vitals: Temp Pulse Resp BP Pulse Ox 97.8 F 128 15 108/71 93 08/29/17 13:00 08/29/17 13:00 08/29/17 13:00 08/29/17 13:00 08/29/17 13:00 General appearance: Present: cooperative, mild distress, A&O X 3, pleasant, answers questions appropriately - Respiratory Respiratory exam: Present: CTAB. Absent: accessory muscle use, rales, rhonchi, wheezes - Cardiovascular Cardiovascular exam: Present: RRR, +S1, +S2. Absent: diastolic murmur, gallop, rubs, systolic murmur
[2017-08-30] MEDS: Pantoprazole 40 MG VIAL IVP SCH (06:02)
[2017-08-30 07:26] VITALS: BP 111/75
[2017-08-30] MEDS: Insulin LISPRO 300 UNITS/3 ML VIAL SQ SCH ×2 (07:43→12:22)
--- NOTE | 2017-08-30 08:29 | Physician Discharge Referral ---
ExtendedCare Referral Info Institutional Level of Care: Skilled - Diagnosis (1) GERRY (acute kidney injury) Status: Acute (2) CAD (coronary artery disease) Status: Chronic (3) Atrial fibrillation with RVR Status: Acute (4) Bilateral cellulitis of lower leg Status: Acute (5) Anemia Status: Acute (6) Hypertension Status: Chronic - Transfer Medications Prescriptions: OxyCODONE Immed Rel [Roxicodone 5 MG] 10 mg PO Q4HR PRN #20 tablet PRN Reason: Severe pain (7-10) LORazepam [Ativan] 1 mg PO TID PRN #20 tablet PRN Reason: Anxiety Home Medications: GlipiZIDE [Glipizide Xl] 5 mg PO DAILY 08/22/17 [History] Lisinopril [Zestril] 30 mg PO DAILY 08/22/17 [History] Metoprolol Succinate 50 mg PO DAILY 08/22/17 [History] metFORMIN [Glucophage] 1,000 mg PO BIDWM 08/22/17 [History] LORazepam [Ativan] 1 mg PO TID PRN #20 tablet 08/29/17 [Rx] OxyCODONE Immed Rel [Roxicodone 5 MG] 10 mg PO Q4HR PRN #20 tablet 08/29/17 [Rx] Allergies/Adverse Reactions: 3 Allergy/AdvReac Type Severity Reaction Status Date / Time No Known Allergies Allergy Verified 08/22/17 18:35 - Respiratory Orders Smoking Cessation: Smoking cessation has been advised. For more information, call the [place] Tobacco Quit Line at 2-906-LTTP-NOW. CERTIFICATION: I certify that the transfer of the above named patient to an Extended Care Facility is necessary for the continuing treatment of the diagnosis listed. The above information is true and accurate reflection of patient's current condition. Confidential - Redisclosure prohibited without a patient's written consent.
--- NOTE | 2017-08-30 09:04 | Palliative Progress Note ---
Date of Encounter: 08/30/17 Time of Encounter: 09:00 - Assessment and plan (1) Generalized pain Current Visit: Yes Status: Acute Assessment and plan: Continue Oxycodone on discharge. Will add Roxanol in case pt becomes unable to tolerate po (2) Anxiety Current Visit: Yes Status: Acute Assessment and plan: Continue Lorazepam PRN. Has not utilized (3) Counseling regarding advanced care planning and goals of care Current Visit: Yes Status: Acute Assessment and plan: Spoke with pt herminio GUARDADOer Ruperto. He will be going to [facility] as [facility] with [facility]. Referral has been called to hospice. Informed that pt brother would not be coming to hospital today - his number provided for hospice to contact and arrange admission. Informed pt primary nurse Ruba regarding arrangements. SW finalizing arrangements with [facility] and will notify nurse when able to set up transport. (4) GERRY (acute kidney injury) Current Visit: Yes Status: Acute (5) Cardiomyopathy Current Visit: Yes Status: Acute Qualifiers: Cardiomyopathy type: unspecified Qualified Code(s): I42.9 - Cardiomyopathy , unspecified (6) PAD (peripheral artery disease) Current Visit: Yes Status: Acute - Time Spent With Patient Total time spent is greater than 50% in coordination of care (as documented) at patient's floor/unit and/or counseling patient: 25 - 35 minutes - Subjective Interval history: Patient awake and alert. Speaks in a whisper, appears very weak. Ate few bites breakfast and drinking juice. Denies pain or shortness of breath. On room air. No family present. - Constitutional Vitals: Abnormal lab results RBC 2.69 M/mcL (4.19-5.50) L 08/29/17 03:40 Hgb 6.8 g/dL (12.9-16.9) L 08/29/17 03:40 Hct 21.2 % (37.5-50.1) L 08/29/17 03:40 MCV 78.8 fL (83.0-100.0) L 08/29/17 03:40 MCH 25.3 pg (28.0-33.3) L 08/29/17 03:40 RDW 22.2 % (11.5-14.5) H 08/29/17 03:40 Plt Count 94 K/mcL (140-400) L 08/29/17 03:40 Neutrophils # 9.8 K/mcL (1.6-8.9) H 08/29/17 03:40 Lymphocytes # 0.5 K/mcL (0.6-4.6) L 08/29/17 03:40 Platelet Estimate Decreased (Normal) L 08/29/17 03:40 Large Platelets Present (Not Present) A 08/24/17 02:58 Immature Plt Fraction 10.2 % (1.1-6.1) H 08/29/17 03:40 Polychromasia 1+ (Not Present) A 08/29/17 03:40 Hypochromasia Present (Not Present) A 08/29/17 03:40 Poikilocytosis 1+ (Not Present) A 08/29/17 03:40 Anisocytosis 1+ (Not Present) A 08/25/17 01:05 Microcytosis Present (Not Present) A 08/24/17 02:58 Macrocytosis Present (Not Present) A 08/29/17 03:40 Target Cells 1+ (Not Present) A 08/24/17 02:58 Tear Drop Cells 1+ (Not Present) A 08/24/17 02:58 Ovalocytes 1+ (Not Present) A 08/29/17 03:40 Tutu Cells 1+ (Not Present) A 08/29/17 03:40 Acanthocytes (Spur) 3+ (Not Present) A 08/24/17 02:58 Schistocytes 1+ (Not Present) A 08/29/17 03:40 PT 18.9 Seconds (9.4-12.1) H 08/23/17 08:12 APTT 76.3 Seconds (26.0-36.0) H 08/26/17 15:10 BUN 71 mg/dL (8-23) H 08/29/17 03:40 Creatinine 1.87 mg/dL (0.70-1.30) H 08/29/17 03:40 Est GFR ( Amer) 43 (> 60) L 08/29/17 03:40 Est GFR (Non-Af Amer) 35 (> 60) L 08/29/17 03:40 BUN/Creatinine Ratio 38 (6-26) H 08/29/17 03:40 Glucose 118 mg/dL (70-105) H 08/29/17 03:40 POC Glucose 121 (58-89) H 08/29/17 19:21 Calculated Osmolality 312 (280-300) H 08/29/17 03:40 B-Natriuretic Peptide 2635 pg/mL (0-100) H 08/27/17 05:03 Total Protein (PEP) 5.60 g/dL (6.00-8.30) L 08/24/17 02:58 Albumin 2.0 g/dL (3.5-5.0) L 08/27/17 05:03 Albumin (PEP) 2.63 g/dL (3.75-5.01) L 08/24/17 02:58 Xayaa-6-Wiscmdroz 0.51 g/dL (0.19-0.46) H 08/24/17 02:58 Urine Clarity Cloudy (Clear) A 08/25/17 18:30 Urine Protein 30 mg/dL (Neg-Trace) H 08/25/17 18:30 Urine Blood Large (Negative) H 08/25/17 18:30 Urine Microscopic RBC 50-100 per hpf (0-3) H 08/25/17 18:30 Ur Squamous Epith Cells Moderate per lpf (None-Few) H 08/25/17 18:30 Microalb/Creat Ratio 159 (0-30) H 08/26/17 04:00 Protein/Creatinin Ratio 0.34 mg/mg (0-0.20) H 08/26/17 04:00 Stool Occult Blood Positive (Negative) A 08/26/17 17:15 General appearance: Present: no acute distress - Respiratory Respiratory exam: Present: decreased breath sounds, CTAB - Cardiovascular Cardiovascular exam: Present: irregular rhythm, tachycardia - GI/Abdominal GI/Abdominal exam: Present: distended, normal bowel sounds, soft - Extremities Exam Additional comments: Necrotic wounds to bilateral lower extremities and feet - Neurological Exam Neurological exam: Present: alert, oriented X3, strengths equal and symetr throughout Additional comments: Generalized weakness - Skin Skin exam: Present: dry, warm Palliative Quality Palliative Quality: Screen for Code Status: Yes, Screen for Goals of Care: Yes, Screen for Pain: Yes, If Pain Regimen Started, Initiate Bowel Regimen: NA, Screen for Nausea/Vomitting: Yes Code Status: 08/23/17 03:30 Resuscitation Status: Active [RES] Routine Comment: Resuscitation Status: Full Code 08/26/17 13:39 DNR [Resuscitation Status: Active] [RES] Routine Comment: Resuscitation Status: [id number] 08/28/17 13:41 DNR [Resuscitation Status: Active] [RES] Routine Comment: Resuscitation Status: DNR-Comfort Care - Labs CBC & Chem 7: 08/29/17 03:40 08/29/17 03:40 Labs: Laboratory Results - last 24 hr 08/29/17 08/29/17 08/29/17 06:50 11:53 15:55 POC Glucose 123 H 153 H 129 H 08/29/17 19:21 POC Glucose 121 H - ABG Interpretation ABG results: PT/INR, D-dimer PT 18.9 Seconds (9.4-12.1) H 08/23/17 08:12 Consult Discharge Plan - Plan Referrals: NONE,PCP [Primary Care Provider] - Prescriptions: OxyCODONE Immed Rel [Roxicodone 5 MG] 10 mg PO Q4HR PRN #20 tablet PRN Reason: Severe pain (7-10) LORazepam [Ativan] 1 mg PO TID PRN #20 tablet PRN Reason: Anxiety Morphine Oral CONC [Roxanol] 0.25 - 0.5 ml PO Q1H PRN #30 ml PRN Reason: pain/dyspnea
[2017-08-30] MEDS: Megestrol Acetate 400 MG/10 ML UDC PO SCH (09:18)
[2017-08-30] MEDS: Metoprolol XL (24 HR) Succ 50 MG TAB.ER.24H PO SCH (09:18)
--- NOTE | 2017-08-30 10:13 | Event Note ---
Date of Encounter: 08/30/17 Time of Encounter: 10:09 Hospice medical manager certification of terminal illness: Hospice benefit. Start: 08/30/2017 Hospice benefit. 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 Instead opting for comfort care only. The patient will not be getting surgery for his legs, other procedures are available to him besides the amputation cardiovascular disease is severe with an ejection fraction of 15% or less. Patient also has a GI bleed for which GI does not feel scope is appropriate given his overall frailty and cardiovascular status. Agent has declined rapidly over the last month probably mostly related to his cardiovascular and peripheral vascular disease. She will not be getting any further aggressive care I believe that These findings support a life expectancy of 6 months or less. I attest that I have compose the above narrative based on my review of the patient's medical records, and or on my examination of the patient. Tristan Smith M.D. Associate senior medical director. [facility]
[2017-08-30] MEDS: levoFLOXacin 750 MG TABLET PO SCH (12:22)
--- NOTE | 2017-08-30 16:51 | Event Note ---
Date of Encounter: 08/30/17 Time of Encounter: 11:00 Patient discharged today
[2017-08-31 00:45] LABS: Urine Collection Duration RANDOM hr; Urine Collection Volume RANDOM mL
== END 2017-08-30 12:44 | disposition hospice, inpatient (51) | DRG 291 ==
LOC: 2NENU → SUATTDRO 08-23 04:04
PROVIDERS: ADMIT Internal Medicine Hematology & Oncology; ATTEND Hospitalist